=== PATIENT | female | born 1955 | race American Indian/Alaskan Native ===

== ENCOUNTER 2018-03-08 02:07 | Inpatient (IN) | payer MEDICAID ==
[2018-03-08] MEDS ORDERED: Aluminum Hydroxide/Magnesium Hydroxide Susp (30 mL) PO STA (03:12)
[2018-03-08] MEDS ORDERED: Sodium Chloride 0.9% 500 ML IV ONE ×2 (03:12→03:24)
--- NOTE | 2018-03-08 03:12 | C.PDOC ---
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 Last use heroin use to day. Denies diarrhea, constipation, or sick contact. <Altagracia Persaud - Last Filed: 03/08/18 06:40> <Alexander Goetz - Last Filed: 03/08/18 05:45> History Per: Patient History/Exam Limitations: no limitations Onset/Duration Of Symptoms: Days, Intermittent Episodes Current Symptoms Are (Timing): Still Present Location Of Pain/Discomfort: Epigastric Radiation Of Pain To:: None Quality Of Discomfort: Unable To Describe Associated Symptoms: Vomiting (x1), Other (Black tarry stools). denies: Diarrhea, Constipation Exacerbating Factors: None Alleviating Factors: None Recent travel outside of the [place]: No Abnormal Vaginal Bleeding: No <Altagracia Persaud - Last Filed: 03/08/18 06:40> Time Seen by Provider: 03/08/18 02:36 Chief Complaint (Nursing): Abdominal Pain Past Medical History Vital Signs: Last Vital Signs Temp 98.0 F 03/08/18 02:15 Pulse 58 L 03/08/18 05:01 Resp 16 03/08/18 05:01 BP 116/67 03/08/18 05:01 Pulse Ox 100 03/08/18 05:01 <Alexander Goetz - Last Filed: 03/08/18 05:45> Reviewed: Historical Data, Nursing Documentation, Vital Signs Vital Signs: Last Vital Signs Temp 98.0 F 03/08/18 02:15 Pulse 75 03/08/18 02:15 Resp 16 03/08/18 02:15 BP 141/87 03/08/18 02:15 Pulse Ox 100 03/08/18 02:15 - Medical History PMH: Fractures (left hip), Seizures Family History: States: Unknown Family Hx - Social History Hx Alcohol Use: No Hx Substance Use: Yes <Altagracia Persaud - Last Filed: 03/08/18 06:40> Review Of Systems Constitutional: Negative for: Fever, Chills Cardiovascular: Negative for: Chest Pain, Palpitations Respiratory: Negative for: Cough, Shortness of Breath Gastrointestinal: Positive for: Vomiting (x1), Abdominal Pain, Other (Black tarry stools). Negative for: Diarrhea, Constipation <Altagracia Persaud - Last Filed: 03/08/18 06:40> Physical Exam - Physical Exam Appears: Non-toxic Skin: Normal Color, Warm, Dry Head: Atraumatic, Normacephalic Eye(s): bilateral: Normal Inspection Oral Mucosa: Moist Neck: Normal, Supple Chest: Symmetrical, No Tenderness Cardiovascular: Rhythm Regular Respiratory: Normal Breath Sounds, No Rales, No Rhonchi, No Wheezing Gastrointestinal/Abdominal: Soft, Tenderness (Epigastric), No Guarding, No Rebound Rectal: Other (Black tarry stools) Back: No CVA Tenderness Neurological/Psych: Oriented x3, Normal Speech <Altagracia Persaud - Last Filed: 03/08/18 06:40> ED Course And Treatment - Laboratory Results Result Diagrams: 03/08/18 03:37 03/08/18 03:37 <Alexander Goetz - Last Filed: 03/08/18 05:45> - Laboratory Results Result Diagrams: 03/08/18 03:37 03/08/18 03:37 O2 Sat by Pulse Oximetry: 100 (Room air) Pulse Ox Interpretation: Normal Progress Note: Blood work, urinalysis, and CT abd/pel ordered. Maalox, pepcid, protonix, zofran, and IV fluids administered. After my evaluation dr Goetz assumed the care of this patient incl admission decision <Altagracia Persaud - Last Filed: 03/08/18 06:40> Disposition Discussed With : Rufino Garrison Comment: accepted the pt on his service and took over the care at 5:46AM Doctor Will See Patient In The: ED - POA Present On Arrival: None <Alexander Goetz - Last Filed: 03/08/18 05:45> Counseled Patient/Family Regarding: Diagnosis, Need For Followup - Disposition Disposition Time: 03:11 <Altagracia Persaud - Last Filed: 03/08/18 06:40> - Disposition Disposition: HOSPITALIZED Condition: FAIR - Clinical Impression Clinical Impression: Abdominal pain, GI bleed, Severe anemia - 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 - Scribe Statement The provider has reviewed the documentation as recorded by the Scribe Gokul Meza All medical record entries made by the Scribe were at my direction and personally dictated by me. I have reviewed the chart and agree that the record accurately reflects my personal performance of the history, physical exam, medical decision making, and the department course for this patient. I have also personally directed, reviewed, and agree with the discharge instructions and disposition. <Altagracia Persaud - Last Filed: 03/08/18 06:40> Decision To Admit - Pt Status Changed To: Hospital Disposition Of: Inpatient - Admit Certification Admit to Inpatient:: After my assessment, the patient will require hospitalization for at least two midnights. This is because of the severity of symptoms shown, intensity of services needed, and/or the medical risk in this patient being treated as an outpatient. - InPatient: Physician Admission Certification:: After my assessment, the patient will require hospitalization for at least two midnights. This is because of the severity of symptoms shown, intensity of services needed, and/or the medical risk in this patient being treated as an outpatient. - . Bed Request Type: Regular Admitting Physician: Rufino Garrison <Alexander Goetz - Last Filed: 03/08/18 05:45> <Altagracia Persaud - Last Filed: 03/08/18 06:40> - . Patient Diagnosis: Abdominal pain, GI bleed, Severe anemia
[2018-03-08] MEDS ORDERED: Aluminum Hydroxide/Magnesium Hydroxide Susp (30 mL) ONE (03:24)
[2018-03-08 03:58] LABS: BASO # 0.1 K/uL (0.0-0.2); BASO % 1.3 % (0.0-2.0); EOS # 0.1 K/uL (0.0-0.7); EOS % 1.8 % (0.0-4.0); LYMPH # 0.9 K/uL (1.0-4.3); LYMPH % 21.6 % (20.0-40.0); MEAN CELL VOLUME 110.1 fL (81.0-99.0); MEAN CORPUSCULAR HEMOGLOBIN 36.5 pg (27.0-31.0); MEAN CORPUSCULAR HGB CONC 33.1 g/dL (33.0-37.0); MEAN PLATELET VOLUME 8.3 fL (7.2-11.7); MONO # 0.3 K/uL (0.0-0.8); MONO % 6.8 % (0.0-10.0); NEUT # 2.7 K/uL (1.8-7.0); NEUT % 68.5 % (50.0-75.0); NRBC % 0.1 % (0.0-2.0); RBC 1.36 Mil/uL (3.80-5.20); RED CELL DISTRIBUTION WIDTH 15.6 % (11.5-14.5)
[2018-03-08 03:59] LABS: ALB/GLOB RATIO 1.5 (1.0-2.1); ALBUMIN 3.6 g/dL (3.5-5.0); CALCIUM 7.9 mg/dl (8.6-10.4)
[2018-03-08 04:00] LABS: HEMOGLOBIN 4.9 g/dL (11.0-16.0)
[2018-03-08] MEDS ORDERED: Sodium Chloride 0.9% 1,000 ML IV ONE (04:04)
[2018-03-08] MEDS ORDERED: Sodium Chloride 0.9% 1,000 ML ONE (04:13)
[2018-03-08] MEDS ORDERED: Iodixanol 320 MG/ML 100 ML BOTTLE IV ONE (04:37)
--- NOTE | 2018-03-08 08:48 | RAD ---
Chest x-ray single frontal view HISTORY: GI bleeding. COMPARISON: None available. FINDINGS: Bibasilar breast and nipple shadows. Mild patchy increased markings in the right midlung zone. Nodular density projecting over the left lower lung zone inferior to the left nipple which may represent confluence of shadows with ribs and vessels. Small nodule cannot be excluded. Interval follow-up x-ray may be helpful if clinically indicated. Alternatively, correlation with chest CT may be helpful. Tortuous ectatic aorta. Top normal heart size. Biapical pleural. Degenerative changes in the spine. Impression: Mild patchy increased markings in the right midlung zone. Nodular density projecting over the left lower lung zone inferior to the left nipple which may represent confluence of shadows with ribs and vessels. Small nodule cannot be excluded. Interval follow-up x-ray may be helpful if clinically indicated. Alternatively, correlation with chest CT may be helpful.
--- NOTE | 2018-03-08 08:55 | CP.PCM.HP ---
<Laurel Treadwell V - Last Filed: 03/08/18 10:00> Meds Allergies/Adverse Reactions: Allergies Allergy/AdvReac Type Severity Reaction Status Date / Time No Known Allergies Allergy Verified 03/08/18 02:18 Results - Vital Signs Recent Vital Signs: Last Vital Signs Temp 97.7 F 03/08/18 08:40 Pulse 61 03/08/18 08:40 Resp 20 03/08/18 08:40 BP 131/87 03/08/18 08:40 Pulse Ox 100 03/08/18 08:40 - Labs Result Diagrams: 03/08/18 03:37 03/08/18 03:37 Labs: Laboratory Results - last 24 hr 03/08/18 03/08/18 03/08/18 03:37 03:37 04:19 WBC 4.0 L RBC 1.36 L Hgb 4.9 L* Hct 15.0 L MCV 110.1 H MCH 36.5 H MCHC 33.1 RDW 15.6 H Plt Count 230 MPV 8.3 Neut % (Auto) 68.5 Lymph % (Auto) 21.6 Foard % (Auto) 6.8 Eos % (Auto) 1.8 Baso % (Auto) 1.3 Neut # (Auto) 2.7 Lymph # (Auto) 0.9 L Foard # (Auto) 0.3 Eos # (Auto) 0.1 Baso # (Auto) 0.1 Retic Count Sodium 134 Potassium 4.0 Chloride 101 Carbon Dioxide 23 Anion Gap 14 BUN 26 H Creatinine 1.3 H Est GFR ( Amer) 50 Est GFR (Non-Af Amer) 42 Random Glucose 83 Calcium 7.9 L Total Bilirubin 0.4 AST 236 H ALT 95 H Alkaline Phosphatase 57 Total Protein 6.1 L Albumin 3.6 Globulin 2.5 Albumin/Globulin Ratio 1.5 Lipase 119 Urine Color Urine Clarity Urine pH Ur Specific Minto Urine Protein Urine Glucose (UA) Urine Ketones Urine Blood Urine Nitrate Urine Bilirubin Urine Urobilinogen Ur Leukocyte Esterase Urine WBC (Auto) Urine RBC (Auto) Ur Squamous Epith Cells Stool Occult Blood Positive H Urine Opiates Screen Urine Methadone Screen Ur Barbiturates Screen Ur Phencyclidine Scrn Ur Amphetamines Screen U Benzodiazepines Scrn U Oth Cocaine Metabols U Cannabinoids Screen Blood Type Antibody Screen 03/08/18 03/08/18 03/08/18 04:31 08:56 08:56 WBC RBC Hgb Hct MCV MCH MCHC RDW Plt Count MPV Neut % (Auto) Lymph % (Auto) Foard % (Auto) Eos % (Auto) Baso % (Auto) Neut # (Auto) Lymph # (Auto) Foard # (Auto) Eos # (Auto) Baso # (Auto) Retic Count Sodium Potassium Chloride Carbon Dioxide Anion Gap BUN Creatinine Est GFR ( Amer) Est GFR (Non-Af Amer) Random Glucose Calcium Total Bilirubin AST ALT Alkaline Phosphatase Total Protein Albumin Globulin Albumin/Globulin Ratio Lipase Urine Color Straw Urine Clarity Clear Urine pH 6.0 Ur Specific Minto 1.028 Urine Protein Negative Urine Glucose (UA) Normal Urine Ketones Negative Urine Blood 3+ H Urine Nitrate Negative Urine Bilirubin Negative Urine Urobilinogen Normal Ur Leukocyte Esterase Neg Urine WBC (Auto) < 1 Urine RBC (Auto) 1 Ur Squamous Epith Cells < 1 Stool Occult Blood Urine Opiates Screen Positive H Urine Methadone Screen Positive H Ur Barbiturates Screen Negative Ur Phencyclidine Scrn Negative Ur Amphetamines Screen Negative U Benzodiazepines Scrn Negative U Oth Cocaine Metabols Negative U Cannabinoids Screen Negative Blood Type O POSITIVE Antibody Screen Negative 03/08/18 09:42 WBC RBC Hgb Hct MCV MCH MCHC RDW Plt Count MPV Neut % (Auto) Lymph % (Auto) Foard % (Auto) Eos % (Auto) Baso % (Auto) Neut # (Auto) Lymph # (Auto) Foard # (Auto) Eos # (Auto) Baso # (Auto) Retic Count 3.3 H Sodium Potassium Chloride Carbon Dioxide Anion Gap BUN Creatinine Est GFR ( Amer) Est GFR (Non-Af Amer) Random Glucose Calcium Total Bilirubin AST ALT Alkaline Phosphatase Total Protein Albumin Globulin Albumin/Globulin Ratio Lipase Urine Color Urine Clarity Urine pH Ur Specific Minto Urine Protein Urine Glucose (UA) Urine Ketones Urine Blood Urine Nitrate Urine Bilirubin Urine Urobilinogen Ur Leukocyte Esterase Urine WBC (Auto) Urine RBC (Auto) Ur Squamous Epith Cells Stool Occult Blood Urine Opiates Screen Urine Methadone Screen Ur Barbiturates Screen Ur Phencyclidine Scrn Ur Amphetamines Screen U Benzodiazepines Scrn U Oth Cocaine Metabols U Cannabinoids Screen Blood Type Antibody Screen Attending/Attestation - Attestation I have personally seen and examined this patient.: Yes I have fully participated in the care of the patient.: Yes I have reviewed all pertinent clinical information: Yes Notes (Text): Patient seen, examined, case discussed with medical claims analyst. Patient is a 63-year-old female history of lung cancer appears on chemoradiation as well as hypothyroidism, heroin use comes in following one month for epigastric pain wherein she is been using [place], [id number] when necessary pain meds as well as 2 tablets of Advil to control the pain. Patient reports it is right in the epigastric area and does not radiate. Patient reports improves with food. Patient reports that she started seeing black tarry stools as of 2 weeks ago but was not worried. Patient denies use of iron supplementation. Patient reports abdominal pain was so bad this morning which prompted her to call the ambulance and come to [facility]. Patient notes that she usually goes to [facility], and is unclear if she's had anemia before not. She does report she is needed blood transfusion in the past. Patient reports that she uses heroin about 1-2 bundles of [place] last used yesterday. Patient reports she is also an active smoker in spite of her lung cancer diagnosis she reports she doesn't because it keeps her calm I did advise her t hat does not help improve her status from her lung cancer. Which she agrees. In the ED patient has received both Pepcid and Protonix. Patient's currently on her first unit of PRBC. It is unknown what her baseline hemoglobin is since we do not have [facility] records available to us resident has attempted to get medical records released from [facility] summary the bases. Awaiting official reports of both chest x-ray and CT abdomen and pelvis. Noted there is no free air noted on the chest x-ray awaiting for official read. Patient is ordered for baseline EKG. GI consult today. Hematology oncology consulted. As well as psychiatry consulted. Discussed admitting orders with resident at time of admission. Admitting diagnoses: Symptomatic anemia typing cross 3 units PRBC receiving first unit bedside. Pos itive stool occult blood in light of both epigastric and black tarry stool we'll consult GI to determine if will need a EGD. Unknown baseline hemoglobin we'll attempt to get medical records from [facility]. A consult heme on can light of lung cancer history as well. No NSAIDs quite anticoagulation in light of symptomatic anemia and positive stool occult blood History of lung malignancy patient denies metastases reports on chemoradiation labs use 1 month ago. Patient is a persistent smoker has been advised to stop smoking to preserve lung function especially in light of lung cancer. Seizure disorder patient reports inconsistent use of Dilantin. Dilantin level ordered. Ativan when necessary for seizure activity Hypothyroidism we'll check TSH free T4 in the morning we'll hold by mouth meds at this time given GI bleed Tobacco use advise cessation at bedside especially in light of lung cancer heroin abuse. Consult psych in light of potential withdrawal. patient reports she uses methadone off the street. does not want this discuss with her daughter. Patient reports that she is full code. She does disclose to relieve we'll only the GI bleeding, the lung cancer and seizure history to her daughter but reports please do not discuss heroin use from the daughter she does not know. Patient upgrade to telemetry in light of GI bleed. She should precautions,. Aspiration precautions chemical anticoagulation contraindicated given GI bleed. <Donny Gimenez - Last Filed: 03/08/18 18:05> History of Present Illness - History of Present Illness History of Present Illness: H&P for Hospitalist Dr. Treadwell 63 F w/ PMHx of Lung ca (stage 2, receiving chemo & radiation @ [facility] w/ Dr. Alex De Souza), seizures (Dilantin 100 TID), ? hypothyroidism, presents to ED w/ 1 month of worsening abdominal pain. Patient states constant abdominal pain w/ black tarry watery stools for the past week, with pain alleviated with food. Patient has tried tylenol OTC and intermittent iboprofen use with no relief of pain. 3 episode of non bloody, non bilious vomiting yesterday 03/07. Patient also admits to falls for the past month because her legs feel heavy along with numbness and tingling sensation. Patient denies LOC, head trauma and is able to get up immediately after fall. Patient denies chest pain, SOB, headaches, vision changes, dysuria, hematuria. Patient has irregular use of Dilantin & ~30 lb phyllis ght loss over the past several months. Patient primarily receives treatment at [facility]. Medical release authorization has bee obtained by patient. Awaiting results. PMD: None, Heme/Onc Dr. Alex De Souza @ [facility] PMHx: Lung ca (stage 2, receiving chemo & radiation @ [facility] w/ Dr. Alex De Souza), seizures (Dilantin 100 TID), ? hypothyroidism Meds: Dilantin 100 mg TID, unsure of thyroid medication, uses [facility] pharmacy Allergies: NKDA PSHx: unknown abdominal surgery involving stomach/colon FHx: Dad - HTN, mother - unknown SHX: 2 cigerattes/day 20+ years, heroin 6-8 bags/ day (intranasal) Full Code Emergency contact daughter Dariela: [phone]; may discuss medial status with daughter except heroin use Present on Admission - Present on Admission Any Indicators Present on Admission: No Review of Systems - Constitutional Constitutional: absent: Chills, Fever, Night Sweats - EENT Eyes: absent: Diplopia, Loss of Vision Ears: absent: Decreased Hearing, Ear Discharge - Cardiovascular Cardiovascular: absent: Chest Pain, Chest Pain at Rest - Respiratory Respiratory: absent: Cough, Dyspnea - Gastrointestinal Gastrointestinal: Abdominal Pain, Loose Stools, Vomiting. absent: Constipation, Early Satiety, Hematemesis - Genitourinary Genitourinary: absent: Difficulty Urinating, Hematuria - Musculoskeletal Musculoskeletal: absent: Arthralgias, Back Pain, Muscle Weakness - Neurological Neurological: absent: Abnormal Hearing, Behavioral Changes, Headaches - Psychiatric Psychiatric: absent: Hallucinations, Mood Swings Past Patient History - Past Social History Smoking Status: Heavy Smoker > 10 Cigarettes Daily - NEUROLOGICAL Hx Seizures: Yes - HEMATOLOGICAL/ONCOLOGICAL Hx Blood Disorders: Yes Hx Cancer: Yes (left lung) - MUSCULOSKELETAL/RHEUMATOLOGICAL Hx Fractures: Yes (left hip) - PSYCHIATRIC Hx Substance Use: Yes - SURGICAL HISTORY Hx Surgeries: Yes Hx Orthopedic Surgery: Yes (left breast) Physical Exam - Constitutional Appears: Non-toxic, No Acute Distress, Cachectic - Head Exam Head Exam: ATRAUMATIC, NORMAL INSPECTION, NORMOCEPHALIC - Eye Exam Eye Exam: EOMI, Normal appearance, PERRL Pupil Exam: NORMAL ACCOMODATION - ENT Exam ENT Exam: Mucous Membranes Moist - Respiratory Exam Respiratory Exam: Clear to Auscultation Bilateral, NORMAL BREATHING PATTERN. absent: Rales, Rhonchi, Wheezes - Cardiovascular Exam Cardiovascular Exam: +S1, +S2. absent: Systolic Murmur - GI/Abdominal Exam GI & Abdominal Exam: Normal Bowel Sounds, Tenderness Additional comments: Diffuse tenderness on palpation - Rectal Exam Additional comments: No masses appreciated, no gross blood, no hemorrhoids visible - Extremities Exam Extremities exam: Negative for: calf tenderness, pedal edema Additional comments: Multiple healing abrasion on arms/ wrists - Back Exam Back exam: absent: CVA tenderness (L), CVA tenderness (R) - Neurological Exam Neurological exam: CN II-XII Intact, Oriented x3 - Psychiatric Exam Psychiatric exam: Normal Affect, Normal Mood - Skin Skin Exam: Dry, Intact, Normal Color, Warm Results - Vital Signs Recent Vital Signs: Last Vital Signs Temp 98 F 03/08/18 07:23 Pulse 68 03/08/18 07:23 Resp 20 03/08/18 07:23 BP 103/65 03/08/18 07:23 Pulse Ox 100 03/08/18 07:23 - Labs Result Diagrams: 03/08/18 03:37 03/08/18 03:37 Labs: Laboratory Results - last 24 hr 03/08/18 03/08/18 03/08/18 03:37 03:37 04:19 WBC 4.0 L RBC 1.36 L Hgb 4.9 L* Hct 15.0 L MCV 110.1 H MCH 36.5 H MCHC 33.1 RDW 15.6 H Plt Count 230 MPV 8.3 Neut % (Auto) 68.5 Lymph % (Auto) 21.6 Foard % (Auto) 6.8 Eos % (Auto) 1.8 Baso % (Auto) 1.3 Neut # (Auto) 2.7 Lymph # (Auto) 0.9 L Foard # (Auto) 0.3 Eos # (Auto) 0.1 Baso # (Auto) 0.1 Sodium 134 Potassium 4.0 Chloride 101 Carbon Dioxide 23 Anion Gap 14 BUN 26 H Creatinine 1.3 H Est GFR ( Amer) 50 Est GFR (Non-Af Amer) 42 Random Glucose 83 Calcium 7.9 L Total Bilirubin 0.4 AST 236 H ALT 95 H Alkaline Phosphatase 57 Total Protein 6.1 L Albumin 3.6 Globulin 2.5 Albumin/Globulin Ratio 1.5 Lipase 119 Stool Occult Blood Positive H Blood Type Antibody Screen 03/08/18 04:31 WBC RBC Hgb Hct MCV MCH MCHC RDW Plt Count MPV Neut % (Auto) Lymph % (Auto) Foard % (Auto) Eos % (Auto) Baso % (Auto) Neut # (Auto) Lymph # (Auto) Foard # (Auto) Eos # (Auto) Baso # (Auto) Sodium Potassium Chloride Carbon Dioxide Anion Gap BUN Creatinine Est GFR ( Amer) Est GFR (Non-Af Amer) Random Glucose Calcium Total Bilirubin AST ALT Alkaline Phosphatase Total Protein Albumin Globulin Albumin/Globulin Ratio Lipase Stool Occult Blood Blood Type O POSITIVE Antibody Screen Negative Assessment & Plan - Assessment and Plan (Free Text) Assessment: 63 F w/ PMHx of Lung ca (stage 2, receiving chemo & radiation @ [facility] w/ Dr. Alex De Souza), seizures (Dilantin 100 TID), ? hypothyroidism, presents to ED w/ 1 month of worsening abdominal pain; found in ED to have Hgb of 4.9. Acute anemia - on admission Hgb 4.9, fecal occult positive, epigastric & black tarry stools - 3 units PRBCs - F/u GI, Dr. Bello recs - EGD report: one non bleeding cratered duodenal ulcer w/ clean base found in 1st portion of duodenum, lession 13 mm in largest - diffuse mild inflammation w/ erythema in gastric body w/ biopsy taken - 1 cm hiatal hernia - F/u heme/onc, Dr. Parikh recs - F/u iron studies (ferritin, TIBC, iron, iron saturation) - F/u reticulocyte count - reticulocyte index - F/u B12, folate - F/u LDH, hatoglobin - Retrieve records from [facility] Malignancy Lung cancer - sees heme/onc - Dr. Alex De Souza @ [facility] - pt on chem/radition, last dose 1 month prior workup at [facility] Heroin Abuse - F/u Psych, Dr. Ortega, recs - aspiration precautions seizure precautions Hypothyroidism - monitor outpatient - F/u TSH & Free T4 Tobacco use - nicoderm - cessation Alcohol Abuse - aspiration &s seizure precaution - Ativan 1mg Q6h PRN Prophylatic measure - DVT contraindicated due to GI bleed - GI: Protonix 40 mg PO daily
[2018-03-08] MEDS ORDERED: Pantoprazole 80 MG in Sodium Chloride 0.9% 100 ML IVP SCH (09:00)
[2018-03-08] MEDS ORDERED: Octreotide 1,250 MCG in Dextrose 5% In Water 250 ML SC SCH (09:00)
[2018-03-08 09:02] LABS: SQUAMOUS EPITHIAL < 1 /hpf (0-5); URINE BILIRUBIN NEGATIVE (NEGATIVE); URINE BLOOD 3+ (NEGATIVE); URINE CLARITY Clear (Clear); URINE COLOR Straw (YELLOW); URINE GLUCOSE (UA) NORMAL (Normal); URINE LEUKOCYTE ESTERASE NEG Leu/uL (Negative); URINE PROTEIN NEGATIVE (NEGATIVE); URINE UROBILINOGEN NORMAL mg/dL (0.2-1.0)
--- NOTE | 2018-03-08 09:09 | CP.PCM.CON ---
<EmmettSteve - Last Filed: 03/08/18 13:04> History of Present Illness - History of Present Illness History of Present Illness: GI Fellow PGY4, Consult note. Connie Angelo is a 63F with history of polysubstance abuse and lung cancer on chemo presenting with abdominal pain and dark stool. Patient has notice black stool for the last week. She has had moderate epigastric abdominal pain for the 1 month and has been taking ~6 NSAID tablets per day. She has not been taking PPI. She has also been consuming alcohol and is a long time smoker and heroin user. She denies vomiting blood or syncope. She has never had a GI bleed before this. She has had an EGD in the distant past but for unknown reason/results. Never has had colonoscopy. Diagnosed with lung cancer last year and has been receiving chemotherapy (last dose 1 month ago). PMHx - as above plus she takes dilantin for remote hx of seizures. PSHx - Abdominal surgery of unclear etiology, likely bowel problem but patient cannot expand. FMHx - Denies GI related cancers SocHx - Uses alcohol (last drink 3 days ago). Current smoker. Heroin use. Denies cocaine. 12pt ROS completed and negative except for above. Past Patient History - Past Social History Smoking Status: Heavy Smoker > 10 Cigarettes Daily - NEUROLOGICAL Hx Seizures: Yes - HEMATOLOGICAL/ONCOLOGICAL Hx Blood Disorders: Yes Hx Cancer: Yes (left lung) - MUSCULOSKELETAL/RHEUMATOLOGICAL Hx Fractures: Yes (left hip) - PSYCHIATRIC Hx Substance Use: Yes - SURGICAL HISTORY Hx Surgeries: Yes Hx Orthopedic Surgery: Yes (left breast) Meds Allergies/Adverse Reactions: Allergies Allergy/AdvReac Type Severity Reaction Status Date / Time No Known Allergies Allergy Verified 03/08/18 02:18 - Medications Medications: Current Medications Octreotide Acetate 1,250 mcg/ (Dextrose) 252.5 mls @ 5.05 mls/hr SC .Q24H DANILO; Protocol Pantoprazole Sodium 80 mg/ (Sodium Chloride) 100 mls @ 10 mls/hr IVPB .Q10H DANILO Lorazepam (Ativan) 1 mg IVP Q6H PRN PRN Reason: Seizure activity Physical Exam - Constitutional Appears: Non-toxic, No Acute Distress, Cachectic, Chronically Ill - Head Exam Head Exam: NORMAL INSPECTION, NORMOCEPHALIC - Eye Exam Eye Exam: EOMI, Normal appearance - ENT Exam ENT Exam: Mucous Membranes Moist, Normal Exam - Respiratory Exam Respiratory Exam: Clear to Auscultation Bilateral, NORMAL BREATHING PATTERN - Cardiovascular Exam Cardiovascular Exam: REGULAR RHYTHM, +S1, +S2 - GI/Abdominal Exam GI & Abdominal Exam: Normal Bowel Sounds, Organomegaly, Soft, Tenderness. absent: Distended, Guarding - Rectal Exam Rectal Exam: Black Stool - Extremities Exam Extremities exam: Positive for: full ROM, normal inspection - Neurological Exam Neurological exam: Alert, CN II-XII Intact, Oriented x3 - Psychiatric Exam Psychiatric exam: Depressed, Flat Affect - Skin Skin Exam: Dry, Normal Color Results - Vital Signs Recent Vital Signs: Last Vital Signs Temp 97.7 F 03/08/18 08:40 Pulse 83 03/08/18 08:40 Resp 20 03/08/18 08:40 BP 131/87 03/08/18 08:40 Pulse Ox 100 03/08/18 08:40 - Labs Result Diagrams: 03/08/18 03:37 03/08/18 03:37 Labs: Laboratory Results - last 24 hr 03/08/18 03/08/18 03/08/18 03:37 03:37 04:19 WBC 4.0 L RBC 1.36 L Hgb 4.9 L* Hct 15.0 L MCV 110.1 H MCH 36.5 H MCHC 33.1 RDW 15.6 H Plt Count 230 MPV 8.3 Neut % (Auto) 68.5 Lymph % (Auto) 21.6 [place] % (Auto) 6.8 Eos % (Auto) 1.8 Baso % (Auto) 1.3 Neut # (Auto) 2.7 Lymph # (Auto) 0.9 L [place] # (Auto) 0.3 Eos # (Auto) 0.1 Baso # (Auto) 0.1 Sodium 134 Potassium 4.0 Chloride 101 Carbon Dioxide 23 Anion Gap 14 BUN 26 H Creatinine 1.3 H Est GFR ( Amer) 50 Est GFR (Non-Af Amer) 42 Random Glucose 83 Calcium 7.9 L Total Bilirubin 0.4 AST 236 H ALT 95 H Alkaline Phosphatase 57 Total Protein 6.1 L Albumin 3.6 Globulin 2.5 Albumin/Globulin Ratio 1.5 Lipase 119 Stool Occult Blood Positive H Blood Type Antibody Screen 03/08/18 04:31 WBC RBC Hgb Hct MCV MCH MCHC RDW Plt Count MPV Neut % (Auto) Lymph % (Auto) [place] % (Auto) Eos % (Auto) Baso % (Auto) Neut # (Auto) Lymph # (Auto) [place] # (Auto) Eos # (Auto) Baso # (Auto) Sodium Potassium Chloride Carbon Dioxide Anion Gap BUN Creatinine Est GFR ( Amer) Est GFR (Non-Af Amer) Random Glucose Calcium Total Bilirubin AST ALT Alkaline Phosphatase Total Protein Albumin Globulin Albumin/Globulin Ratio Lipase Stool Occult Blood Blood Type O POSITIVE Antibody Screen Negative Assessment & Plan - Assessment and Plan (Free Text) Assessment: #Acute blood loss anemia due to likely upper GI bleed #Acute abdominal pain with NSAID abuse - Likely PUD, no signs of perforation #Elevated liver enzymes #Likely alcoholic liver disease #Lung cancer on chemo #Polysubstance abuse PLAN: -Resuscitate patient and plan for EGD -Recommend 2u pRBCs STAT prior to EGD with another unit on HOLD -Monitor Hb closely, recheck this evening and tomorrow AM. -Check hepatitis panel -Check coagulation studies -Start octreotide bolus and drip in setting of alcoholic liver disease -Start PPI drip -Recommend CIWA protocol -Avoid NSAIDs/anticoagulation Note: Please see follow up EGD report for further recommendations. - Date & Time Date: 03/08/18 Time: 09:10 <Delbert Carrillo - Last Filed: 03/08/18 16:01> Meds - Medications Medications: Current Medications Lorazepam (Ativan) 1 mg IVP Q6H PRN PRN Reason: Seizure activity Last Admin: 03/08/18 11:16 Dose: 1 mg Ondansetron HCl (Zofran Inj) 4 mg IVP Q6H PRN PRN Reason: Nausea/Vomiting Pantoprazole Sodium (Protonix Ec Tab) 40 mg PO DAILY DANILO Last Admin: 03/08/18 14:24 Dose: 40 mg Sucralfate (Carafate Oral Susp) 1 gm PO Q6H DANILO Last Admin: 03/08/18 14:23 Dose: 1 gm Results - Vital Signs Recent Vital Signs: Last Vital Signs Temp 97 F L 03/08/18 12:43 Pulse 58 L 03/08/18 15:35 Resp 12 03/08/18 15:35 BP 132/86 03/08/18 15:35 Pulse Ox 100 03/08/18 15:35 - Labs Result Diagrams: 03/08/18 03:37 03/08/18 03:37 Labs: Laboratory Results - last 24 hr 03/08/18 03/08/18 03/08/18 03:37 03:37 04:19 WBC 4.0 L RBC 1.36 L Hgb 4.9 L* Hct 15.0 L MCV 110.1 H MCH 36.5 H MCHC 33.1 RDW 15.6 H Plt Count 230 MPV 8.3 Neut % (Auto) 68.5 Lymph % (Auto) 21.6 [place] % (Auto) 6.8 Eos % (Auto) 1.8 Baso % (Auto) 1.3 Neut # (Auto) 2.7 Lymph # (Auto) 0.9 L [place] # (Auto) 0.3 Eos # (Auto) 0.1 Baso # (Auto) 0.1 Retic Count PT INR APTT Sodium 134 Potassium 4.0 Chloride 101 Carbon Dioxide 23 Anion Gap 14 BUN 26 H Creatinine 1.3 H Est GFR ( Amer) 50 Est GFR (Non-Af Amer) 42 Random Glucose 83 Calcium 7.9 L Iron TIBC % Saturation Transferrin Ferritin Total Bilirubin 0.4 AST 236 H ALT 95 H Alkaline Phosphatase 57 Total Protein 6.1 L Albumin 3.6 Globulin 2.5 Albumin/Globulin Ratio 1.5 Lipase 119 Vitamin B12 Folate Urine Color Urine Clarity Urine pH Ur Specific [place] Urine Protein Urine Glucose (UA) Urine Ketones Urine Blood Urine Nitrate Urine Bilirubin Urine Urobilinogen Ur Leukocyte Esterase Urine WBC (Auto) Urine RBC (Auto) Ur Squamous Epith Cells Stool Occult Blood Positive H Urine Opiates Screen Urine Methadone Screen Ur Barbiturates Screen Phenytoin Ur Phencyclidine Scrn Ur Amphetamines Screen U Benzodiazepines Scrn U Oth Cocaine Metabols U Cannabinoids Screen Alcohol, Quantitative Blood Type Antibody Screen 03/08/18 03/08/18 03/08/18 04:31 08:56 08:56 WBC RBC Hgb Hct MCV MCH MCHC RDW Plt Count MPV Neut % (Auto) Lymph % (Auto) [place] % (Auto) Eos % (Auto) Baso % (Auto) Neut # (Auto) Lymph # (Auto) [place] # (Auto) Eos # (Auto) Baso # (Auto) Retic Count PT INR APTT Sodium Potassium Chloride Carbon Dioxide Anion Gap BUN Creatinine Est GFR ( Amer) Est GFR (Non-Af Amer) Random Glucose Calcium Iron TIBC % Saturation Transferrin Ferritin Total Bilirubin AST ALT Alkaline Phosphatase Total Protein Albumin Globulin Albumin/Globulin Ratio Lipase Vitamin B12 Folate Urine Color Straw Urine Clarity Clear Urine pH 6.0 Ur Specific [place] 1.028 Urine Protein Negative Urine Glucose (UA) Normal Urine Ketones Negative Urine Blood 3+ H Urine Nitrate Negative Urine Bilirubin Negative Urine Urobilinogen Normal Ur Leukocyte Esterase Neg Urine WBC (Auto) < 1 Urine RBC (Auto) 1 Ur Squamous Epith Cells < 1 Stool Occult Blood Urine Opiates Screen Positive H Urine Methadone Screen Positive H Ur Barbiturates Screen Negative Phenytoin Ur Phencyclidine Scrn Negative Ur Amphetamines Screen Negative U Benzodiazepines Scrn Negative U Oth Cocaine Metabols Negative U Cannabinoids Screen Negative Alcohol, Quantitative Blood Type O POSITIVE Antibody Screen Negative 03/08/18 03/08/18 03/08/18 09:42 09:42 09:42 WBC RBC Hgb Hct MCV MCH MCHC RDW Plt Count MPV Neut % (Auto) Lymph % (Auto) [place] % (Auto) Eos % (Auto) Baso % (Auto) Neut # (Auto) Lymph # (Auto) [place] # (Auto) Eos # (Auto) Baso # (Auto) Retic Count 3.3 H PT INR APTT Sodium Potassium Chloride Carbon Dioxide Anion Gap BUN Creatinine Est GFR ( Amer) Est GFR (Non-Af Amer) Random Glucose Calcium Iron 102 TIBC 216 L % Saturation 47 Transferrin Ferritin 987.0 Total Bilirubin AST ALT Alkaline Phosphatase Total Protein Albumin Globulin Albumin/Globulin Ratio Lipase Vitamin B12 531 Folate 8.2 Urine Color Urine Clarity Urine pH Ur Specific [place] Urine Protein Urine Glucose (UA) Urine Ketones Urine Blood Urine Nitrate Urine Bilirubin Urine Urobilinogen Ur Leukocyte Esterase Urine WBC (Auto) Urine RBC (Auto) Ur Squamous Epith Cells Stool Occult Blood Urine Opiates Screen Urine Methadone Screen Ur Barbiturates Screen Phenytoin Ur Phencyclidine Scrn Ur Amphetamines Screen U Benzodiazepines Scrn U Oth Cocaine Metabols U Cannabinoids Screen Alcohol, Quantitative < 10 Blood Type Antibody Screen 03/08/18 03/08/18 03/08/18 09:42 09:42 09:42 WBC RBC Hgb Hct MCV MCH MCHC RDW Plt Count MPV Neut % (Auto) Lymph % (Auto) [place] % (Auto) Eos % (Auto) Baso % (Auto) Neut # (Auto) Lymph # (Auto) [place] # (Auto) Eos # (Auto) Baso # (Auto) Retic Count PT INR APTT Sodium Potassium Chloride Carbon Dioxide Anion Gap BUN Creatinine Est GFR ( Amer) Est GFR (Non-Af Amer) Random Glucose Calcium Iron TIBC % Saturation 47 Transferrin 163.17 L Ferritin Total Bilirubin AST ALT Alkaline Phosphatase Total Protein Albumin Globulin Albumin/Globulin Ratio Lipase Vitamin B12 Folate Urine Color Urine Clarity Urine pH Ur Specific [place] Urine Protein Urine Glucose (UA) Urine Ketones Urine Blood Urine Nitrate Urine Bilirubin Urine Urobilinogen Ur Leukocyte Esterase Urine WBC (Auto) Urine RBC (Auto) Ur Squamous Epith Cells Stool Occult Blood Urine Opiates Screen Urine Methadone Screen Ur Barbiturates Screen Phenytoin < 3.0 L Ur Phencyclidine Scrn Ur Amphetamines Screen U Benzodiazepines Scrn U Oth Cocaine Metabols U Cannabinoids Screen Alcohol, Quantitative Blood Type Antibody Screen 03/08/18 09:42 WBC RBC Hgb Hct MCV MCH MCHC RDW Plt Count MPV Neut % (Auto) Lymph % (Auto) [place] % (Auto) Eos % (Auto) Baso % (Auto) Neut # (Auto) Lymph # (Auto) [place] # (Auto) Eos # (Auto) Baso # (Auto) Retic Count PT 10.6 INR 1.0 APTT 31 Sodium Potassium Chloride Carbon Dioxide Anion Gap BUN Creatinine Est GFR ( Amer) Est GFR (Non-Af Amer) Random Glucose Calcium Iron TIBC % Saturation Transferrin Ferritin Total Bilirubin AST ALT Alkaline Phosphatase Total Protein Albumin Globulin Albumin/Globulin Ratio Lipase Vitamin B12 Folate Urine Color Urine Clarity Urine pH Ur Specific [place] Urine Protein Urine Glucose (UA) Urine Ketones Urine Blood Urine Nitrate Urine Bilirubin Urine Urobilinogen Ur Leukocyte Esterase Urine WBC (Auto) Urine RBC (Auto) Ur Squamous Epith Cells Stool Occult Blood Urine Opiates Screen Urine Methadone Screen Ur Barbiturates Screen Phenytoin Ur Phencyclidine Scrn Ur Amphetamines Screen U Benzodiazepines Scrn U Oth Cocaine Metabols U Cannabinoids Screen Alcohol, Quantitative Blood Type Antibody Screen Attending/Attestation - Attestation I have personally seen and examined this patient.: Yes I have fully participated in the care of the patient.: Yes I have reviewed all pertinent clinical information: Yes Notes (Text): 03/08/18 15:57 I have seen and examined patient with GI fellow. Agree with above documentation with the following additions. In brief, this is a 63 year old female with history of polysubstance abuse, ETOH abuse, lung cancer on chemotherapy who presents to hospital with complaint of abdominal pain and dark colored stool for the past one week. She reports sharp epigastric pain which radiates to back during this time period. She admits to use of daily NSAIDs for pain relief. She otherwise denies nausea, vomiting, fever/chills, weight loss, or change in bowel habits. She claims to have had an EGD several years ago, no prior colonoscopy. Polysubstance abuse ETOH abuse, transaminitis Lung cancer on chemotherapy Abdominal pain Anemia, melena - NPO - Patient currently receiving PRBC transfusion, continue to monitor H/H - Continue with PPI therapy - Obtain viral hepatitis panel, continue to monitor LFTs - Monitor for signs of ETOH withdrawal - Given profound anemia with melena, will plan for urgent EGD today for further evaluation
[2018-03-08] MEDS ORDERED: Octreotide 1,250 MCG in Dextrose 5% In Water 250 ML IV SCH (09:15)
[2018-03-08] MEDS ORDERED: Pantoprazole 80 MG in Sodium Chloride 0.9% 100 ML IVPB SCH (09:15)
[2018-03-08 09:18] LABS: BARBITURATES, UR NEGATIVE (NEGATIVE); BENZODIAZEPINES, UR NEGATIVE (NEGATIVE); PHENCYCLIDINE, UR NEGATIVE (NEGATIVE)
[2018-03-08 09:27] LABS: OPIATES, UR POSITIVE (NEGATIVE)
[2018-03-08 10:04] LABS: IRON 102 ug/dL (37-170)
[2018-03-08 10:10] LABS: % IRON SATURATION 47 (20-55); TOTAL IRON BINDING CAPACITY 216 ug/dL (250-450)
[2018-03-08 11:17] LABS: FOLATE 8.2 ng/mL
[2018-03-08 11:24] LABS: PROTHROMBIN TIME 10.6 SECONDS (9.7-12.2)
--- NOTE | 2018-03-08 11:38 | CT ---
Date of service: 03/08/2018 PROCEDURE: CT Abdomen and Pelvis with contrast HISTORY: gi bleed COMPARISON: None available TECHNIQUE: Contrast dose: 150 mL Visipaque 320 Radiation dose: Total exam DLP = 173.56 mGy-cm. This CT exam was performed using one or more of the following dose reduction techniques: Automated exposure control, adjustment of the mA and/or kV according to patient size, and/or use of iterative reconstruction technique. FINDINGS: LOWER THORAX: No visible consolidation, pleural effusion, or pneumothorax. LIVER: Too small to characterize 5 mm hepatic dome hypodensity; statistically likely cyst or hemangioma. Hypoattenuation of the liver compatible with hepatic steatosis. Hepatomegaly. GALLBLADDER AND BILE DUCTS: Unremarkable. PANCREAS: Pancreatic duct appears dilated measuring approximately 4 mm. 9 mm cystic appearing focus at the pancreatic head with evidence of communication with the pancreatic duct consistent with IPMN. SPLEEN: Unremarkable. ADRENALS: Unremarkable. KIDNEYS AND URETERS: The kidneys enhance symmetrically. No hydronephrosis or obstructing calculus identified. VASCULATURE: No aortic aneurysm. Atherosclerotic calcifications present. BOWEL: Thickening of the gastric antrum. Lack of oral contrast limits evaluation for bowel pathology. No evidence of bowel obstruction. Postsurgical changes at the cecum. Fluid-filled bowel loops suggest diarrheal illness. APPENDIX: The appendix is not identified. Correlate for appendectomy. PERITONEUM: Small abdominal and pelvic ascites. Mesenteric edema. No definite free air. LYMPH NODES: No bulky adenopathy identified. BLADDER: Unremarkable. REPRODUCTIVE: Unremarkable. BONES: Indeterminate right sacral 4 mm sclerotic focus, possibly bone island. Degenerative changes of the spine. OTHER FINDINGS: None. IMPRESSION: 9 mm cystic appearing focus at the pancreatic head with evidence of communication with the pancreatic duct consistent with IV p.m. and. Recommend further evaluation with endoscopic ultrasound as possibility of intraductal IPMN must be considered. Abdominal and pelvic ascites. Mesenteric edema. Considerations include but not limited to ascites of unknown origin, ovarian malignancy, intraperitoneal metastases, hypoalbuminemia, etc. Correlate clinically. Mural thickening of the gastric antrum. Too small to characterize hepatic hypodensities; statistically likely cyst or hemangioma. Hypoattenuation of the liver compatible with hepatic steatosis. Hepatomegaly. Additional findings as above. Preliminary impression was provided by [employer]. Study marked for PA review.
[2018-03-08] MEDS ORDERED: Etomidate 20 mg/10ml Inj IV ONE (12:21)
[2018-03-08] MEDS ORDERED: Propofol 10 mg/ml Inj (20 ML) ONE (12:22)
--- NOTE | 2018-03-08 13:36 | CP.PCM.CON ---
History of Present Illness - History of Present Illness History of Present Illness: 63 year old female with a history of locally advance lung cancer on chemo+XRT with Dr. De Souza, presenting with worsening abdominal pain, found to have severe anemia. The patient notes to progressive stomach pain which has not responded to over the counter pain medication. Of note, she does take methadone. She denies abnormal bleeding and bruising. In the ER, she was found to have a hgb of 4.9 and undergoing PRBC transfusion. Past medical history: Polysubstance abuse, locally advance lung cancer. Past surgical history: Denies Family history: Denies hematologic and oncologic problems Social history: +tobacco, +polysubstance abuse Allergies: NKA Review of systems: All remaining review of systems including HEENT, ca rdiovascular, respiratory, gastrointestinal, genitourinary, musculoskeletal, dermatologic, neurologic, and psychiatric are negative unless mentioned in the HPI. Past Patient History - Past Social History Smoking Status: Heavy Smoker > 10 Cigarettes Daily - NEUROLOGICAL Hx Seizures: Yes - HEMATOLOGICAL/ONCOLOGICAL Hx Blood Disorders: Yes Hx Cancer: Yes (left lung) - MUSCULOSKELETAL/RHEUMATOLOGICAL Hx Fractures: Yes (left hip) - PSYCHIATRIC Hx Substance Use: Yes - SURGICAL HISTORY Hx Surgeries: Yes Hx Orthopedic Surgery: Yes (left breast) Meds Allergies/Adverse Reactions: Allergies Allergy/AdvReac Type Severity Reaction Status Date / Time No Known Allergies Allergy Verified 03/08/18 02:18 - Medications Medications: Current Medications Lorazepam (Ativan) 1 mg IVP Q6H PRN PRN Reason: Seizure activity Last Admin: 03/08/18 11:16 Dose: 1 mg Ondansetron HCl (Zofran Inj) 4 mg IVP Q6H PRN PRN Reason: Nausea/Vomiting Pantoprazole Sodium (Protonix Ec Tab) 40 mg PO DAILY [facility] Sucralfate (Carafate Oral Susp) 1 gm PO Q6H [facility] Physical Exam - Head Exam Head Exam: ATRAUMATIC - Eye Exam Eye Exam: Normal appearance - ENT Exam ENT Exam: Mucous Membranes Dry - Respiratory Exam Respiratory Exam: NORMAL BREATHING PATTERN - Cardiovascular Exam Cardiovascular Exam: +S1, +S2 - GI/Abdominal Exam GI & Abdominal Exam: Normal Bowel Sounds - Extremities Exam Extremities exam: Positive for: normal inspection Results - Vital Signs Recent Vital Signs: Last Vital Signs Temp 97 F L 03/08/18 12:43 Pulse 54 L 03/08/18 13:13 Resp 12 03/08/18 13:13 BP 126/93 H 03/08/18 13:13 Pulse Ox 100 03/08/18 13:13 - Labs Result Diagrams: 03/12/18 09:21 03/12/18 09:21 Labs: Laboratory Results - last 24 hr 03/08/18 03/08/18 03/08/18 03:37 03:37 04:19 WBC 4.0 L RBC 1.36 L Hgb 4.9 L* Hct 15.0 L MCV 110.1 H MCH 36.5 H MCHC 33.1 RDW 15.6 H Plt Count 230 MPV 8.3 Neut % (Auto) 68.5 Lymph % (Auto) 21.6 Ocean % (Auto) 6.8 Eos % (Auto) 1.8 Baso % (Auto) 1.3 Neut # (Auto) 2.7 Lymph # (Auto) 0.9 L Ocean # (Auto) 0.3 Eos # (Auto) 0.1 Baso # (Auto) 0.1 Retic Count PT INR APTT Sodium 134 Potassium 4.0 Chloride 101 Carbon Dioxide 23 Anion Gap 14 BUN 26 H Creatinine 1.3 H Est GFR ( Amer) 50 Est GFR (Non-Af Amer) 42 Random Glucose 83 Calcium 7.9 L Iron TIBC % Saturation Transferrin Ferritin Total Bilirubin 0.4 AST 236 H ALT 95 H Alkaline Phosphatase 57 Total Protein 6.1 L Albumin 3.6 Globulin 2.5 Albumin/Globulin Ratio 1.5 Lipase 119 Vitamin B12 Folate Urine Color Urine Clarity Urine pH Ur Specific Ulmer Urine Protein Urine Glucose (UA) Urine Ketones Urine Blood Urine Nitrate Urine Bilirubin Urine Urobilinogen Ur Leukocyte Esterase Urine WBC (Auto) Urine RBC (Auto) Ur Squamous Epith Cells Stool Occult Blood Positive H Urine Opiates Screen Urine Methadone Screen Ur Barbiturates Screen Phenytoin Ur Phencyclidine Scrn Ur Amphetamines Screen U Benzodiazepines Scrn U Oth Cocaine Metabols U Cannabinoids Screen Alcohol, Quantitative Blood Type Antibody Screen 03/08/18 03/08/18 03/08/18 04:31 08:56 08:56 WBC RBC Hgb Hct MCV MCH MCHC RDW Plt Count MPV Neut % (Auto) Lymph % (Auto) Ocean % (Auto) Eos % (Auto) Baso % (Auto) Neut # (Auto) Lymph # (Auto) Ocean # (Auto) Eos # (Auto) Baso # (Auto) Retic Count PT INR APTT Sodium Potassium Chloride Carbon Dioxide Anion Gap BUN Creatinine Est GFR ( Amer) Est GFR (Non-Af Amer) Random Glucose Calcium Iron TIBC % Saturation Transferrin Ferritin Total Bilirubin AST ALT Alkaline Phosphatase Total Protein Albumin Globulin Albumin/Globulin Ratio Lipase Vitamin B12 Folate Urine Color Straw Urine Clarity Clear Urine pH 6.0 Ur Specific Ulmer 1.028 Urine Protein Negative Urine Glucose (UA) Normal Urine Ketones Negative Urine Blood 3+ H Urine Nitrate Negative Urine Bilirubin Negative Urine Urobilinogen Normal Ur Leukocyte Esterase Neg Urine WBC (Auto) < 1 Urine RBC (Auto) 1 Ur Squamous Epith Cells < 1 Stool Occult Blood Urine Opiates Screen Positive H Urine Methadone Screen Positive H Ur Barbiturates Screen Negative Phenytoin Ur Phencyclidine Scrn Negative Ur Amphetamines Screen Negative U Benzodiazepines Scrn Negative U Oth Cocaine Metabols Negative U Cannabinoids Screen Negative Alcohol, Quantitative Blood Type O POSITIVE Antibody Screen Negative 03/08/18 03/08/18 03/08/18 09:42 09:42 09:42 WBC RBC Hgb Hct MCV MCH MCHC RDW Plt Count MPV Neut % (Auto) Lymph % (Auto) Ocean % (Auto) Eos % (Auto) Baso % (Auto) Neut # (Auto) Lymph # (Auto) Ocean # (Auto) Eos # (Auto) Baso # (Auto) Retic Count 3.3 H PT INR APTT Sodium Potassium Chloride Carbon Dioxide Anion Gap BUN Creatinine Est GFR ( Amer) Est GFR (Non-Af Amer) Random Glucose Calcium Iron 102 TIBC 216 L % Saturation 47 Transferrin Ferritin 987.0 Total Bilirubin AST ALT Alkaline Phosphatase Total Protein Albumin Globulin Albumin/Globulin Ratio Lipase Vitamin B12 531 Folate 8.2 Urine Color Urine Clarity Urine pH Ur Specific Ulmer Urine Protein Urine Glucose (UA) Urine Ketones Urine Blood Urine Nitrate Urine Bilirubin Urine Urobilinogen Ur Leukocyte Esterase Urine WBC (Auto) Urine RBC (Auto) Ur Squamous Epith Cells Stool Occult Blood Urine Opiates Screen Urine Methadone Screen Ur Barbiturates Screen Phenytoin Ur Phencyclidine Scrn Ur Amphetamines Screen U Benzodiazepines Scrn U Oth Cocaine Metabols U Cannabinoids Screen Alcohol, Quantitative < 10 Blood Type Antibody Screen 03/08/18 03/08/18 03/08/18 09:42 09:42 09:42 WBC RBC Hgb Hct MCV MCH MCHC RDW Plt Count MPV Neut % (Auto) Lymph % (Auto) Ocean % (Auto) Eos % (Auto) Baso % (Auto) Neut # (Auto) Lymph # (Auto) Ocean # (Auto) Eos # (Auto) Baso # (Auto) Retic Count PT INR APTT Sodium Potassium Chloride Carbon Dioxide Anion Gap BUN Creatinine Est GFR ( Amer) Est GFR (Non-Af Amer) Random Glucose Calcium Iron TIBC % Saturation 47 Transferrin 163.17 L Ferritin Total Bilirubin AST ALT Alkaline Phosphatase Total Protein Albumin Globulin Albumin/Globulin Ratio Lipase Vitamin B12 Folate Urine Color Urine Clarity Urine pH Ur Specific Ulmer Urine Protein Urine Glucose (UA) Urine Ketones Urine Blood Urine Nitrate Urine Bilirubin Urine Urobilinogen Ur Leukocyte Esterase Urine WBC (Auto) Urine RBC (Auto) Ur Squamous Epith Cells Stool Occult Blood Urine Opiates Screen Urine Methadone Screen Ur Barbiturates Screen Phenytoin < 3.0 L Ur Phencyclidine Scrn Ur Amphetamines Screen U Benzodiazepines Scrn U Oth Cocaine Metabols U Cannabinoids Screen Alcohol, Quantitative Blood Type Antibody Screen 03/08/18 09:42 WBC RBC Hgb Hct MCV MCH MCHC RDW Plt Count MPV Neut % (Auto) Lymph % (Auto) Ocean % (Auto) Eos % (Auto) Baso % (Auto) Neut # (Auto) Lymph # (Auto) Ocean # (Auto) Eos # (Auto) Baso # (Auto) Retic Count PT 10.6 INR 1.0 APTT 31 Sodium Potassium Chloride Carbon Dioxide Anion Gap BUN Creatinine Est GFR ( Amer) Est GFR (Non-Af Amer) Random Glucose Calcium Iron TIBC % Saturation Transferrin Ferritin Total Bilirubin AST ALT Alkaline Phosphatase Total Protein Albumin Globulin Albumin/Globulin Ratio Lipase Vitamin B12 Folate Urine Color Urine Clarity Urine pH Ur Specific Ulmer Urine Protein Urine Glucose (UA) Urine Ketones Urine Blood Urine Nitrate Urine Bilirubin Urine Urobilinogen Ur Leukocyte Esterase Urine WBC (Auto) Urine RBC (Auto) Ur Squamous Epith Cells Stool Occult Blood Urine Opiates Screen Urine Methadone Screen Ur Barbiturates Screen Phenytoin Ur Phencyclidine Scrn Ur Amphetamines Screen U Benzodiazepines Scrn U Oth Cocaine Metabols U Cannabinoids Screen Alcohol, Quantitative Blood Type Antibody Screen Assessment & Plan (1) Anemia Assessment and Plan: anemia of chemotherapy and radiation anemia of chronic disease anemia of CKD transfusion support PRN Status: Acute (2) Lung cancer Assessment and Plan: on chemoradiation outpatient f/u with primary oncologist Thank you for this interesting consult. Status: Acute
[2018-03-08] MEDS: Sucralfate 1 gm/10 ml Oral Susp UD PO SCH ×2 (14:23→19:00)
[2018-03-08] MEDS: Pantoprazole 40 mg EC Tab PO SCH (14:24)
[2018-03-08 20:54] LABS: MEAN CORPUSCULAR HEMOGLOBIN 33.5 pg (27.0-31.0); MEAN CORPUSCULAR HGB CONC 35.5 g/dL (33.0-37.0); MEAN PLATELET VOLUME 7.7 fL (7.2-11.7); RBC 2.67 Mil/uL (3.80-5.20); RED CELL DISTRIBUTION WIDTH 20.4 % (11.5-14.5); WHITE BLOOD COUNT 5.9 K/uL (4.8-10.8)
[2018-03-08 21:00] LABS: HEMOGLOBIN 8.9 g/dL (11.0-16.0); MEAN CELL VOLUME 94.3 fL (81.0-99.0)
--- NOTE | 2018-03-08 23:42 | CP.PCM.PCO ---
Physician Communication Note - Physician Communication Note Physician Communication Note: Pt not on the floor at 3 pm Case d/w resident. Dr. Echevarria will follow. Rx OK
[2018-03-09] MEDS: Sucralfate 1 gm/10 ml Oral Susp UD PO SCH ×4 (00:33→19:50)
--- NOTE | 2018-03-09 07:44 | CP.PCM.PN ---
<Donny Gimenez M - Last Filed: 03/09/18 19:44> Subjective - Date & Time of Evaluation Date of Evaluation: 03/09/18 Time of Evaluation: 11:00 - Subjective Subjective: PGY 1 Medicine Progress Note for Hospitalist Dr. Treadwell. patient seen and examined at bedside. No overnight events reported. Patient lying in bed, sleeping, no acute distress. Upon arrosual, patient states she is going through withdrawals and has abdominal cramps. Patient denies diarrhea, constipation, headaches, vision changes, chest pain, SOB, abdominal pain, d ysuria, hematura. Patient is POD #1 s/p EGD for GI bleed. Patient is passing gas, and had 1 bowel movement. Objective - Vital Signs/Intake and Output Vital Signs (last 24 hours): Temp Pulse Resp BP Pulse Ox 98 F 60 20 143/78 98 03/08/18 23:10 03/09/18 05:38 03/08/18 23:10 03/09/18 05:38 03/08/18 23:10 - Medications Medications: Current Medications Clonidine HCl (Catapres) 0.1 mg PO Q6H PRN PRN Reason: opioid withdrawal sxs Dicyclomine HCl (Bentyl) 10 mg PO Q6H PRN PRN Reason: gastric cramps Hydroxyzine HCl (Atarax) 25 mg PO Q6H PRN PRN Reason: Anxiety Influenza Virus Vaccine (Fluzone Quad [id number]) 60 mcg IM .ONCE ONE Stop: 03/10/18 10:01 Lorazepam (Ativan) 1 mg IVP Q6H PRN PRN Reason: Seizure activity Last Admin: 03/09/18 05:41 Dose: 1 mg Nicotine (Nicoderm Cq) 1 patch TD DAILY [facility] Ondansetron HCl (Zofran Inj) 4 mg IVP Q6H PRN PRN Reason: Nausea/Vomiting Pantoprazole Sodium (Protonix Ec Tab) 40 mg PO DAILY [facility] Last Admin: 03/08/18 14:24 Dose: 40 mg Pneumococcal Polyvalent Vaccine (Pneumovax 23 Vaccine) 0.5 ml IM .ONCE ONE Stop: 03/10/18 10:01 Sucralfate (Carafate Oral Susp) 1 gm PO Q6H [facility] Last Admin: 03/09/18 00:33 Dose: Not Given Trazodone HCl (Desyrel) 50 mg PO HS PRN PRN Reason: Insomnia Last Admin: 03/09/18 05:42 Dose: 50 mg - Labs Labs: 03/08/18 20:47 03/08/18 03:37 PT 10.6 SECONDS (9.7-12.2) 03/08/18 09:42 INR 1.0 03/08/18 09:42 APTT 31 SECONDS (21-34) 03/08/18 09:42 - Constitutional Appears: Non-toxic, No Acute Distress - Head Exam Head Exam: ATRAUMATIC, NORMAL INSPECTION, NORMOCEPHALIC - Eye Exam Eye Exam: Normal appearance - ENT Exam ENT Exam: Mucous Membranes Dry - Neck Exam Additional comments: L sided thyroid goiter - Respiratory Exam Respiratory Exam: Clear to Ausculation Bilateral, NORMAL BREATHING PATTERN. abs ent: Rales, Rhonchi, Wheezes - Cardiovascular Exam Cardiovascular Exam: +S1, +S2. absent: Murmur - GI/Abdominal Exam GI & Abdominal Exam: Soft, Tenderness, Normal Bowel Sounds Additional comments: diffuse tenderness, less than previous day - Extremities Exam Extremities Exam: Full ROM, Normal Inspection, Pedal Edema. absent: Calf Tenderness - Back Exam Back Exam: absent: CVA tenderness (L), CVA tenderness (R) - Neurological Exam Neurological Exam: Alert, Awake, Oriented x3 - Psychiatric Exam Psychiatric exam: Flat Affect, Normal Mood - Skin Skin Exam: Dry, Intact, Normal Color, Warm Additional comments: Multiple healing abrasion on arms/ wrists Assessment and Plan - Assessment and Plan (Free Text) Assessment: 63 F w/ PMHx of Lung ca (stage 2, receiving chemo & radiation @ [facility] w/ Dr. Alex De Souza), seizures (Dilantin 100 TID), ? hypothyroidism, presents to ED w/ 1 month of worsening abdominal pain; found in ED to have Hgb of 4.9. Acute anemia Resolved - on admission Hgb 4.9, fecal occult positive, epigastric & black tarry stools - 3 units PRBCs - F/u GI, Dr. Bello recs - EGD report: one non bleeding cratered duodenal ulcer w/ clean base found in 1st portion of duodenum, lession 13 mm in largest - diffuse mild inflammation w/ erythema in gastric body w/ biopsy taken - 1 cm hiatal hernia - F/u in 2 months for EGD for eval - Soft diet - sucralfate q6h - PPI PO daily - F/u heme/onc, Dr. Parikh recs - F/u iron studies (ferritin, TIBC, iron, iron saturation) - reticulocyte count 3.3 - reticulocyte index 0.47 - hypoproliferation - B12, folate - WNL - F/u LDH, hatoglobin - Records from [facility] in patient chart Hypothyroidism - pt on 25 mcg of levothyroxine at home for the past month - TSH 87.20 - F/u endo, Dr. Vizcaino recs - Thyroid Ab, thyroperoxidase Ab, levothyroxine 100 mcg IVP - F/u thyroid U/S - F/u TSH & Free T4 Malignancy Lung cancer - sees heme/onc - Dr. Alex De Souza @ [facility] - pt on chem/radition, last dose 1 month prior workup at [facility] Heroin Abuse - F/u Psych, Dr. Ortega, recs - methadone 5mg PO once - aspiration precautions seizure precautions Tobacco use - nicotine 7mg/24 hr patch - cessation History of Seizure - Dilantin level < 3 - Start home dose of dilantin 100 mg TID Alcohol Abuse - aspiration &s seizure precaution Prophylatic measure - DVT contraindicated due to GI bleed - GI: Protonix 40 mg PO daily <Laurel Treadwell V - Last Filed: 03/12/18 21:36> Objective - Vital Signs/Intake and Output Vital Signs (last 24 hours): Temp Pulse Resp BP Pulse Ox 98.6 F 105 H 18 118/78 98 03/12/18 15:36 03/12/18 15:36 03/12/18 15:36 03/12/18 15:36 03/12/18 15:36 - Medications Medications: Current Medications Al Hydrox/Mg Hydrox/Simethicone (Maalox 30 Ml) 30 ml PO Q6H PRN PRN Reason: Indigestion / Heartburn Amoxicillin (Amoxil 500 Mg Cap) 1,000 mg PO BID [facility]; Protocol Last Admin: 03/12/18 17:46 Dose: 1,000 mg Clarithromycin (Biaxin Filmtab) 500 mg PO Q12H [facility]; Protocol Last Admin: 03/12/18 21:18 Dose: 500 mg Clonidine HCl (Catapres) 0.1 mg PO Q6H PRN PRN Reason: opioid withdrawal sxs Dicyclomine HCl (Bentyl) 10 mg PO Q6H PRN PRN Reason: gastric cramps Famotidine (Pepcid) 20 mg PO DAILY [facility] Last Admin: 03/12/18 10:20 Dose: 20 mg Levothyroxine Sodium (Synthroid) 125 mcg PO DAILY@0630 [facility] Methadone HCl (Methadone) 10 mg PO Q24H [facility]; Taper Stop: 03/15/18 08:59 Last Admin: 03/12/18 10:18 Dose: 10 mg Metronidazole (Flagyl) 500 mg PO Q8 [facility]; Protocol Last Admin: 03/12/18 21:18 Dose: 500 mg Mirtazapine (Remeron) 30 mg PO HS [facility] Last Admin: 03/12/18 21:18 Dose: 30 mg Nicotine (Nicoderm Cq) 1 patch TD DAILY [facility] Last Admin: 03/12/18 10:20 Dose: 1 patch Phenytoin Sodium (Dilantin) 100 mg PO TID [facility] Last Admin: 03/12/18 17:45 Dose: 100 mg Sucralfate (Carafate Oral Susp) 1 gm PO Q6H [facility] Last Admin: 03/12/18 18:00 Dose: 1 gm - Labs Labs: 03/12/18 09:21 03/12/18 09:21 PT 10.6 SECONDS (9.7-12.2) 03/08/18 09:42 INR 1.0 03/08/18 09:42 APTT 31 SECONDS (21-34) 03/08/18 09:42 Assessment and Plan (1) Duodenal ulcer Status: Acute (2) Anemia Status: Acute (3) Heroin abuse Status: Acute (4) Severe hypothyroidism Status: Acute (5) History of lung cancer Status: Acute (6) Transaminitis Status: Acute (7) Seizure Status: Acute (8) Prophylactic measure Status: Acute Attending/Attestation - Attestation I have personally seen and examined this patient.: Yes I have fully participated in the care of the patient.: Yes I have reviewed all pertinent clinical information, including history, physical exam and plan: Yes Notes (Text): This is late computer entry for 03/09/18. Patient seen, examined and case discussed with biomedical engineering professor. Agree with assessment and plan as written by the resident. patient sp EGD for duodenal ulcer, nonbleeding, diet advanced by GI started on carafate and PPi. Patient noted to have severe hypothyroidism, will consult endocrinology.
[2018-03-09 09:15] LABS: HEMOGLOBIN 10.4 g/dL (11.0-16.0); MEAN CORPUSCULAR HEMOGLOBIN 33.2 pg (27.0-31.0); MEAN CORPUSCULAR HGB CONC 34.4 g/dL (33.0-37.0); MEAN PLATELET VOLUME 7.8 fL (7.2-11.7); RBC 3.14 Mil/uL (3.80-5.20); RED CELL DISTRIBUTION WIDTH 21.2 % (11.5-14.5); WHITE BLOOD COUNT 5.5 K/uL (4.8-10.8)
[2018-03-09 09:21] LABS: MEAN CELL VOLUME 96.4 fL (81.0-99.0)
[2018-03-09 09:35] LABS: ALB/GLOB RATIO 1.2 (1.0-2.1); CALCIUM 7.8 mg/dl (8.6-10.4)
[2018-03-09] MEDS: Pantoprazole 40 mg EC Tab PO SCH (09:39)
[2018-03-09 10:01] LABS: HEPATITIS B SURFACE AG Negative (NEGATIVE)
[2018-03-09 10:07] LABS: HEPATITIS A IGM NEGATIVE (NEGATIVE); HEPATITIS B CORE AB NEGATIVE (NEGATIVE)
[2018-03-09 10:18] LABS: HEPATITIS C ANTIBODY NEGATIVE (NEGATIVE)
--- NOTE | 2018-03-09 15:11 | CP.PCM.PN ---
<Steve Christine - Last Filed: 03/09/18 15:06> Subjective - Date & Time of Evaluation Date of Evaluation: 03/09/18 Time of Evaluation: 15:06 - Subjective Subjective: No acute events overnight. No further bleeding reported. Patient is tolerating diet. Requesting morphine for abdominal pain. Denies vomiting. Objective - Vital Signs/Intake and Output Vital Signs (last 24 hours): Temp Pulse Resp BP Pulse Ox 98.0 F 61 20 122/75 100 03/09/18 09:39 03/09/18 09:42 03/09/18 09:39 03/09/18 09:42 03/09/18 09:39 - Medications Medications: Current Medications Clonidine HCl (Catapres) 0.1 mg PO Q6H PRN PRN Reason: opioid withdrawal sxs Dicyclomine HCl (Bentyl) 10 mg PO Q6H PRN PRN Reason: gastric cramps Hydroxyzine HCl (Atarax) 25 mg PO Q6H PRN PRN Reason: Anxiety Influenza Virus Vaccine (Fluzone Quad [id number]) 60 mcg IM .ONCE ONE Stop: 03/10/18 10:01 Nicotine (Nicoderm Cq) 1 patch TD DAILY [facility] Last Admin: 03/09/18 09:39 Dose: 1 patch Ondansetron HCl (Zofran Inj) 4 mg IVP Q6H PRN PRN Reason: Nausea/Vomiting Pantoprazole Sodium (Protonix Ec Tab) 40 mg PO DAILY [facility] Last Admin: 03/09/18 09:39 Dose: 40 mg Phenytoin Sodium (Dilantin) 100 mg PO TID [facility] Last Admin: 03/09/18 13:53 Dose: 100 mg Pneumococcal Polyvalent Vaccine (Pneumovax 23 Vaccine) 0.5 ml IM .ONCE ONE Stop: 03/10/18 10:01 Sucralfate (Carafate Oral Susp) 1 gm PO Q6H [facility] Last Admin: 03/09/18 12:36 Dose: 1 gm Trazodone HCl (Desyrel) 50 mg PO HS PRN PRN Reason: Insomnia Last Admin: 03/09/18 05:42 Dose: 50 mg - Labs Labs: 03/09/18 09:10 03/09/18 09:10 PT 10.6 SECONDS (9.7-12.2) 03/08/18 09:42 INR 1.0 03/08/18 09:42 APTT 31 SECONDS (21-34) 03/08/18 09:42 - Constitutional Appears: Non-toxic, No Acute Distress, Chronically Ill - Head Exam Head Exam: NORMAL INSPECTION, NORMOCEPHALIC - Eye Exam Eye Exam: EOMI, Normal appearance - ENT Exam ENT Exam: Mucous Membranes Moist, Normal Exam - Respiratory Exam Respiratory Exam: Clear to Ausculation Bilateral, NORMAL BREATHING PATTERN - Cardiovascular Exam Cardiovascular Exam: REGULAR RHYTHM, +S1, +S2 - GI/Abdominal Exam GI & Abdominal Exam: Soft, Normal Bowel Sounds. absent: Tenderness - Neurological Exam Neurological Exam: Alert, Awake, Oriented x3 - Psychiatric Exam Psychiatric exam: Depressed, Flat Affect - Skin Skin Exam: Dry, Normal Color Assessment and Plan - Assessment and Plan (Free Text) Assessment: #Acute blood loss anemia due to likely upper GI bleed #Acute abdominal pain with NSAID abuse - Likely PUD, no signs of perforation #Elevated liver enzymes #Likely alcoholic liver disease #Lung cancer on chemo #Polysubstance abuse PLAN: -EGD 03/08/18 showing large friable and cratered duodenal ulcer (FC III). Biopsies taken of stomach for HP testing. -s/p 2u pRBCs -Sucralfate q6H -PPI PO daily -Advance diet to soft. -Recommend CIWA protocol -Avoid NSAIDs/anticoagulation. Patient understands. -She will need follow up EGD in 2 months to evaluate healing. -We will sign-off, please reconsult as needed. <Von Pressley - Last Filed: 03/10/18 07:56> Objective - Vital Signs/Intake and Output Vital Signs (last 24 hours): Temp Pulse Resp BP Pulse Ox 98.3 F 76 20 105/76 100 03/09/18 23:20 03/09/18 23:20 03/09/18 23:20 03/09/18 23:20 03/09/18 23:20 - Medications Medications: Current Medications Clonidine HCl (Catapres) 0.1 mg PO Q6H PRN PRN Reason: opioid withdrawal sxs Dicyclomine HCl (Bentyl) 10 mg PO Q6H PRN PRN Reason: gastric cramps Hydroxyzine HCl (Atarax) 25 mg PO Q6H PRN PRN Reason: Anxiety Influenza Virus Vaccine (Fluzone Quad [id number]) 60 mcg IM .ONCE ONE Stop: 03/10/18 10:01 Levothyroxine Sodium (Levothyroxine) 100 mcg IVP 0600 [facility] Last Admin: 03/10/18 06:58 Dose: 100 mcg Nicotine (Nicoderm Cq) 1 patch TD DAILY [facility] Last Admin: 03/09/18 09:39 Dose: 1 patch Ondansetron HCl (Zofran Inj) 4 mg IVP Q6H PRN PRN Reason: Nausea/Vomiting Last Admin: 03/09/18 17:32 Dose: 4 mg Pantoprazole Sodium (Protonix Ec Tab) 40 mg PO DAILY [facility] Last Admin: 03/09/18 09:39 Dose: 40 mg Phenytoin Sodium (Dilantin) 100 mg PO TID [facility] Last Admin: 03/09/18 17:30 Dose: 100 mg Pneumococcal Polyvalent Vaccine (Pneumovax 23 Vaccine) 0.5 ml IM .ONCE ONE Stop: 03/10/18 10:01 Sucralfate (Carafate Oral Susp) 1 gm PO Q6H [facility] Last Admin: 03/10/18 07:05 Dose: 1 gm Trazodone HCl (Desyrel) 50 mg PO HS PRN PRN Reason: Insomnia Last Admin: 03/09/18 21:38 Dose: 50 mg - Labs Labs: 03/09/18 09:10 03/10/18 07:28 PT 10.6 SECONDS (9.7-12.2) 03/08/18 09:42 INR 1.0 03/08/18 09:42 APTT 31 SECONDS (21-34) 03/08/18 09:42 Attending/Attestation - Attestation I have personally seen and examined this patient.: Yes I have fully participated in the care of the patient.: Yes I have reviewed all pertinent clinical information, including history, physical exam and plan: Yes Notes (Text): 03/10/18 07:51 Chart reviewed. The pt was interview and examined yesterday. The findings, assessment and recommendations were discussed with Dr. Christine and documented above. 03/10/18 07:56
--- NOTE | 2018-03-09 15:35 | CARD ---
APPROVED REPORT Date of service: 03/08/2018 EKG Measurement Heart [id number] <Conclusion> Normal sinus rhythm Left anterior fascicular block Abnormal ECG
[2018-03-09] MEDS ORDERED: Levothyroxine 200 mcg (0.2 mg) Inj IVP ONE (16:30)
--- NOTE | 2018-03-09 22:16 | CON ---
DATE: 03/09/2018 ENDOCRINOLOGY CONSULTATION LOCATION: Room 664. HISTORY OF PRESENT ILLNESS: This is a 63-year-old female, admitted with GI bleeding and marked anemia and is now being referred for endocrine evaluation for also marked hypothyroidism. PAST MEDICAL HISTORY: History of lung carcinoma, currently on chemotherapy at this time; history of seizure disorder, on Dilantin therapy; history of a previous abdominal surgery, but the exact details is not known at this time; history of polysubstance abuse as noted. FAMILY HISTORY: Positive for hypertension and heart disease. SOCIAL HISTORY: Admits to polysubstance use with nicotine dependence and chronic alcoholism and also known heroin abuse. REVIEW OF SYSTEMS: Admits to generalized body weakness with bifrontal headaches and episodic bouts of dizziness and lightheadedness. No chest pain or palpitations. Her oral intake has been valuable with nausea, dyspepsia, and supervening diffuse upper abdominal pain for the last one month, but worse in the last few days prior to admission. Also admits to sudden onset of melena and lower GI bleeding. PHYSICAL EXAMINATION: GENERAL: This is an average-built female, in no apparent distress. VITAL SIGNS: With a blood pressure of 140/80, pulse of 60 beats per minute and regular, temperature 98, respirations 20. Height is 5 feet 2 inches. Weight is 84 pounds. HEENT: Head is normocephalic. Eyes anicteric with pale conjunctivae. Funduscopy is not possible at this time. There is also evidence of fascial and periorbital edema. NECK: Supple. Thyroid gland is firm, but nontender with no overt nodules or bruits. HEART: Adynamic precordium. S1 and S2 are slow and regular. LUNGS: Clear to auscultation. ABDOMEN: Flat, soft with positive bowel sounds. EXTREMITIES: No peripheral edema. Pulses are +2 bilaterally. LABORATORY DATA: Initial hemoglobin was 4.9 and the last one today is 10.4. Chemistries: BUN of 17, sodium 135, potassium 4, chloride 105, CO2 of 23, glucose 133, and creatinine 1.4. Her TSH level is 87.20. ASSESSMENT: This is a 63-year-old female with overt hypothyroidism both historically, clinically and biochemically most likely related to underlying autoimmune thyroiditis, presenting here with upper gastrointestinal bleeding and melena with marked anemia and received blood transfusion as noted thereof. PLAN OF MANAGEMENT: We will initiate a stat dose of levothyroxine given as 200 mcg IV push today as ordered, starting tomorrow morning. We will add levothyroxine at 100 mcg IV push once daily as ordered. We will obtain a comprehensive thyroid hormonal profile to include thyroid antibodies, which will confirm and/or negate the presence of thyroid autoimmunity. If her TSH clinically improved, then we will switch over to oral levothyroxine therapy as indicated. We will follow. Corinna Vizcaino MD
[2018-03-10] MEDS: Sucralfate 1 gm/10 ml Oral Susp UD PO SCH ×4 (01:00→23:03)
[2018-03-10] MEDS: Levothyroxine 200 mcg (0.2 mg) Inj IVP SCH (06:58)
[2018-03-10 07:38] LABS: BASO % 0.5 % (0.0-2.0); EOS # 0.1 K/uL (0.0-0.7); EOS % 1.4 % (0.0-4.0); HEMOGLOBIN 10.4 g/dL (11.0-16.0); LYMPH % 21.6 % (20.0-40.0); MEAN CELL VOLUME 96.7 fL (81.0-99.0); MEAN CORPUSCULAR HEMOGLOBIN 33.1 pg (27.0-31.0); MEAN CORPUSCULAR HGB CONC 34.2 g/dL (33.0-37.0); MEAN PLATELET VOLUME 7.8 fL (7.2-11.7); MONO # 0.4 K/uL (0.0-0.8); MONO % 8.1 % (0.0-10.0); NEUT # 3.3 K/uL (1.8-7.0); NEUT % 68.4 % (50.0-75.0); NRBC % 0.1 % (0.0-2.0); RBC 3.13 Mil/uL (3.80-5.20); RED CELL DISTRIBUTION WIDTH 21.2 % (11.5-14.5); WHITE BLOOD COUNT 4.8 K/uL (4.8-10.8)
[2018-03-10 07:49] LABS: ALB/GLOB RATIO 1.2 (1.0-2.1); CALCIUM 7.7 mg/dl (8.6-10.4)
[2018-03-10 08:06] LABS: T4 8.96 ug/dL (5.5-11.0)
[2018-03-10] MEDS ORDERED: Pneumococcal 23-Valent Vaccine IM ONE (10:00)
[2018-03-10] MEDS ORDERED: Influenza Vaccine 60 MCG/0.5 ML SYR (3 yr & up) IM ONE (10:00)
[2018-03-10] MEDS: Pantoprazole 40 mg EC Tab PO SCH (10:08)
--- NOTE | 2018-03-10 12:34 | PCM.PSYCH ---
Initial Psychiatric Evaluation - Initial Psychiatric Evaluation Type of Admission: Voluntary Legal Status: Capacity Chief Complaint (in patient's own words): "I'm withdrawing" History of Present Illness and Precipitating Events: The pt is seen, chart reviewed and case discussed Consult was requested for her opioid abuse She is a 63 y/o AAF, single with4 children, lives with a daughter She admits to using 10 bags of heroin daily x10 years by snorting. One detox many years ago. No rehab, no NA Denies other drugs Smokes 2 cig / day Feels depressed, lonely, guilty, ashamed (hides drug use from children) but not suicidal No griselda or psychosis No past psych or family psych hx Medical hx: cancer, seizure d/o Current Medications: Active Medications Generic Name Dose Route Start Last Admin Trade Name Freq PRN Reason Stop Dose Admin Clonidine HCl 0.1 mg 03/08/18 23:37 Catapres PO Q6H PRN opioid withdrawal sxs Dicyclomine HCl 10 mg 03/08/18 23:37 Bentyl PO Q6H PRN gastric cramps Hydroxyzine HCl 25 mg 03/08/18 23:37 Atarax PO Q6H PRN Anxiety Levothyroxine Sodium 100 mcg 03/10/18 06:00 03/10/18 06:58 Levothyroxine IVP 100 mcg 0600 D[facility] Administration Nicotine 1 patch 03/09/18 10:00 03/10/18 10:13 Nicoderm Cq TD 1 patch DAILY DAN[facility]O Administration Ondansetron HCl 4 mg 03/08/18 13:03 03/10/18 10:09 Zofran Inj IVP 4 mg Q6H PRN Administration Nausea/Vomiting Pantoprazole Sodium 40 mg 03/08/18 13:00 03/10/18 10:08 Protonix Ec Tab PO 40 mg DAILY DANILO Administration Phenytoin Sodium 100 mg 03/09/18 14:00 03/10/18 10:08 Dilantin PO 100 mg TID DANILO Administration Sucralfate 1 gm 03/08/18 13:00 03/10/18 07:05 Carafate Oral Susp PO 1 gm Q6H D[facility]O Administration Trazodone HCl 50 mg 03/08/18 23:37 03/09/18 21:38 Desyrel PO 50 mg HS PRN Administration Insomnia Past Psychiatric History - Past Psychiatric History Previous Treatment History: None Pertinent Medical Hx (Current Medical&Sleep Prob, Allergies): Allergies Allergy/AdvReac Type Severity Reaction Status Date / Time No Known Allergies Allergy Verified 03/08/18 02:18 Dilantin 03/08/18 Unknown Chemotherapy Med 03/08/18 Review of Systems - Neurological Neurological: UNREMARKABLE - Psychiatric Psychiatric: Abnormal Sleep Pattern, Anhedonia, Anxiety, Change in Appetite, Depression, Difficulty Concentrating. absent: Hallucinations, Homicidal Ideation, Suicidal Ideation Mental Status Examination - Personal Presentation Personal Presentation: Looks stated age - Affect Affect: Constricted - Motor Activity Motor Activity: Calm - Reliability in Providing Information Reliability in Providing Information: Good - Speech Speech: Organized - Mood Mood: Depressed, Anxious - Formal Thought Process Formal Thought Process: No Impairment - Cognitive Functions Orientation: Person, Place, Situation, Time Sensorium: Drowsy Attention/Concentration: Easily distracted Estimate of Intelligence: Average Judgement: Intact, as evidence by: Insight regarding need for hospitalization Memory: Recent intact, as evidence by: Ability to recall events of the day, Remote intact, as evidenced by: Ability to recall historical events - Risk Risk: Withdrawal, Diminished functioning - Strength & Assets Inventory Strength & Assets Inventory: Cooperative - Limitations Limitations: Other DSM 5 DX - DSM 5 DSM 5 Diagnosis: Opioid withdrawal Opioid use d/o - severe Major depression, moderate, single - Recommended/Plan of Treatment Treatment Recommendations and Plan of Treatment: Taper with methadone Remeron for depression Gabapentin for augmentation if needed As needed medications All risks, benefits and alternatives of the meds discussed, and the pt agreed and understood. Supportive therapy and psychoeducation NC for abstinence Encourage MAT Refer to rehab or IOP, and self-help groups Teach healthy lifestyle methods, i.e. diet, exercise, meditation Smoking cessation 34 min
--- NOTE | 2018-03-10 12:58 | US ---
Date of service: 03/10/2018 HISTORY: goiter TECHNIQUE: Sonographic evaluation of the thyroid gland. COMPARISON: No prior similar study for comparison FINDINGS: RIGHT LOBE: Measures 3.3 x 0.8 x 1.3 cm. Normal echotexture and flow. Nodules: None LEFT LOBE: Measures 3.7 x 1.1 x 1.2 cm. Normal echotexture and flow. Nodules: None ISTHMUS: Measures 0.16 cm. Normal echotexture and flow. Nodules: None OTHER FINDINGS: None . IMPRESSION: Unremarkable thyroid sonogram.
--- NOTE | 2018-03-10 16:35 | CP.PCM.PN ---
<Srini Whitlock - Last Filed: 03/10/18 16:32> Subjective - Date & Time of Evaluation Date of Evaluation: 03/10/18 Time of Evaluation: 16:32 - Subjective Subjective: Hospitalist Service Pt seen and examined at bedside. Pt denies any acute events overnight. Pt has no symptoms of seizures, palpitations syncope. Pt denies cp sob fc nv. Pt improving clinically understands current status and agrees with plan of observation Objective - Vital Signs/Intake and Output Vital Signs (last 24 hours): Temp Pulse Resp BP Pulse Ox 98.1 F 70 18 112/71 99 03/10/18 07:30 03/10/18 07:30 03/10/18 07:30 03/10/18 07:30 03/10/18 07:30 - Medications Medications: Current Medications Clonidine HCl (Catapres) 0.1 mg PO Q6H PRN PRN Reason: opioid withdrawal sxs Dicyclomine HCl (Bentyl) 10 mg PO Q6H PRN PRN Reason: gastric cramps Hydroxyzine HCl (Atarax) 25 mg PO Q6H PRN PRN Reason: Anxiety Levothyroxine Sodium (Levothyroxine) 100 mcg IVP 0600 [facility] Last Admin: 03/10/18 06:58 Dose: 100 mcg Methadone HCl (Methadone) 10 mg PO Q24H [facility]; Taper Stop: 03/15/18 08:59 Mirtazapine (Remeron) 15 mg PO HS [facility] Nicotine (Nicoderm Cq) 1 patch TD DAILY [facility] Last Admin: 03/10/18 10:13 Dose: 1 patch Ondansetron HCl (Zofran Inj) 4 mg IVP Q6H PRN PRN Reason: Nausea/Vomiting Last Admin: 03/10/18 10:09 Dose: 4 mg Pantoprazole Sodium (Protonix Ec Tab) 40 mg PO DAILY [facility] Last Admin: 03/10/18 10:08 Dose: 40 mg Phenytoin Sodium (Dilantin) 100 mg PO TID [facility] Last Admin: 03/10/18 13:54 Dose: 100 mg Sucralfate (Carafate Oral Susp) 1 gm PO Q6H [facility] Last Admin: 03/10/18 13:54 Dose: 1 gm Trazodone HCl (Desyrel) 50 mg PO HS PRN PRN Reason: Insomnia Last Admin: 03/09/18 21:38 Dose: 50 mg - Labs Labs: 03/10/18 07:28 03/10/18 07:28 PT 10.6 SECONDS (9.7-12.2) 03/08/18 09:42 INR 1.0 03/08/18 09:42 APTT 31 SECONDS (21-34) 03/08/18 09:42 - Additional Findings Additional findings: - Constitutional Appears: Non-toxic, No Acute Distress - Head Exam Head Exam: ATRAUMATIC, NORMAL INSPECTION, NORMOCEPHALIC - Eye Exam Eye Exam: Normal appearance - ENT Exam ENT Exam: Mucous Membranes Dry - Neck Exam Additional comments: L sided thyroid goiter - Respiratory Exam Respiratory Exam: Clear to Ausculation Bilateral, NORMAL BREATHING PATTERN. absent: Rales, Rhonchi, Wheezes - Cardiovascular Exam Cardiovascular Exam: +S1, +S2. absent: Murmur - GI/Abdominal Exam GI & Abdominal Exam: Soft, Tenderness, Normal Bowel Sounds Additional comments: diffuse tenderness, less than previous day - Extremities Exam Extremities Exam: Full ROM, Normal Inspection, Pedal Edema. absent: Calf Tenderness - Back Exam Back Exam: absent: CVA tenderness (L), CVA tenderness (R) - Neurological Exam Neurological Exam: Alert, Awake, Oriented x3 - Psychiatric Exam Psychiatric exam: Flat Affect, Normal Mood - Skin Skin Exam: Dry, Intact, Normal Color, Warm Additional comments: Multiple healing abrasion on arms/ wrists Assessment and Plan - Assessment and Plan (Free Text) Assessment: 63 F w/ PMHx of Lung ca (stage 2, [place] & [place] [facility] [place]. Alex [place] Souza), seizures (Dilantin 100 TID), ? hypothyroidism, presents to ED w/ 1 month of worsening abdominal pain; found in ED to have Hgb of 4.9. Acute anemia Resolved - on admission Hgb 4.9, fecal occult positive, epigastric & black tarry stools - 3 units PRBCs - F/u GI, Dr. Ace lovett - EGD report: one non bleeding cratered duodenal ulcer w/ clean base found in 1st portion of duodenum, lession 13 mm in largest - diffuse mild inflammation w/ erythema in gastric body w/ biopsy taken - 1 cm hiatal hernia - F/u in 2 months for EGD for eval - Soft diet - sucralfate q6h - PPI PO daily - F/u heme/onc, Dr. Parikh recs - F/u iron studies (ferritin, TIBC, iron, iron saturation) - reticulocyte count 3.3 - reticulocyte index 0.47 - hypoproliferation - B12, folate - WNL - F/u LDH, hatoglobin - Records [place] [facility] [place] Hypothyroidism - pt on 25 mcg of levothyroxine at home for the past month - TSH >100 - F/u endo, Dr. Vizcaino recs - Thyroid Ab, thyroperoxidase Ab, levothyroxine 100 mcg IVP - 03/10 unremarkable thyroid U/S Malignancy Lung cancer - sees heme/onc - Dr. Alex [place] Souza [place] [facility] pt on chem/radition, last dose 1 month prior workup [place] [facility] Heroin Abuse - F/u Psych, Dr. Ortega, recs - methadone 5mg PO once - aspiration precautions seizure precautions Tobacco use - nicotine 7mg/24 hr patch - cessation History of Seizure - Dilantin level < 3 - Start home dose of dilantin 100 mg TID Alcohol Abuse - aspiration &s seizure precaution Prophylatic measure - DVT contraindicated due to GI bleed - GI: Protonix 40 mg PO daily dispo f/u thyroid abs, obs until thyroid fx normalizes <Laurel Treadwell V - Last Filed: 03/12/18 21:34> Objective - Vital Signs/Intake and Output Vital Signs (last 24 hours): Temp Pulse Resp BP Pulse Ox 98.6 F 105 H 18 118/78 98 03/12/18 15:36 03/12/18 15:36 03/12/18 15:36 03/12/18 15:36 03/12/18 15:36 - Medications Medications: Current Medications Al Hydrox/Mg Hydrox/Simethicone (Maalox 30 Ml) 30 ml PO Q6H PRN PRN Reason: Indigestion / Heartburn Amoxicillin (Amoxil 500 Mg Cap) 1,000 mg PO BID DANILO; Protocol Last Admin: 03/12/18 17:46 Dose: 1,000 mg Clarithromycin (Biaxin Filmtab) 500 mg PO Q12H DANILO; Protocol Last Admin: 03/12/18 21:18 Dose: 500 mg Clonidine HCl (Catapres) 0.1 mg PO Q6H PRN PRN Reason: opioid withdrawal sxs Dicyclomine HCl (Bentyl) 10 mg PO Q6H PRN PRN Reason: gastric cramps Famotidine (Pepcid) 20 mg PO DAILY [facility] Last Admin: 03/12/18 10:20 Dose: 20 mg Levothyroxine Sodium (Synthroid) 125 mcg PO DAILY@0630 [facility] Methadone HCl (Methadone) 10 mg PO Q24H [facility]; Taper Stop: 03/15/18 08:59 Last Admin: 03/12/18 10:18 Dose: 10 mg Metronidazole (Flagyl) 500 mg PO Q8 [facility]; Protocol Last Admin: 03/12/18 21:18 Dose: 500 mg Mirtazapine (Remeron) 30 mg PO HS [facility] Last Admin: 03/12/18 21:18 Dose: 30 mg Nicotine (Nicoderm Cq) 1 patch TD DAILY [facility] Last Admin: 03/12/18 10:20 Dose: 1 patch Phenytoin Sodium (Dilantin) 100 mg PO TID [facility] Last Admin: 03/12/18 17:45 Dose: 100 mg Sucralfate (Carafate Oral Susp) 1 gm PO Q6H [facility] Last Admin: 03/12/18 18:00 Dose: 1 gm - Labs Labs: 03/12/18 09:21 03/12/18 09:21 PT 10.6 SECONDS (9.7-12.2) 03/08/18 09:42 INR 1.0 03/08/18 09:42 APTT 31 SECONDS (21-34) 03/08/18 09:42 Assessment and Plan (1) Duodenal ulcer Status: Acute (2) Anemia Status: Acute (3) Heroin abuse Status: Acute (4) Severe hypothyroidism Status: Acute (5) History of lung cancer Status: Acute (6) Transaminitis Status: Acute (7) Seizure Status: Acute (8) Prophylactic measure Status: Acute Attending/Attestation - Attestation I have personally seen and examined this patient.: Yes I have fully participated in the care of the patient.: Yes I have reviewed all pertinent clinical information, including history, physical exam and plan: Yes Notes (Text): This is late computer entry for 03/10/18. Patient seen, examined, and case discussed with day-time resident. Patient reports she feels weak. Patient undergoing methadone taper for known heroin abuse. Patient's TSH being monitored by endocrinology who have started IV levothyroxi ne. GI has signed off on the case. Consult PT in light of weakness.
[2018-03-11] MEDS: Sucralfate 1 gm/10 ml Oral Susp UD PO SCH ×4 (02:18→19:11)
[2018-03-11] MEDS: Levothyroxine 200 mcg (0.2 mg) Inj IVP SCH (06:55)
[2018-03-11 08:52] LABS: BASO % 0.7 % (0.0-2.0); EOS # 0.1 K/uL (0.0-0.7); EOS % 1.1 % (0.0-4.0); LYMPH # 1.3 K/uL (1.0-4.3); LYMPH % 20.1 % (20.0-40.0); MEAN CELL VOLUME 97.5 fL (81.0-99.0); MEAN CORPUSCULAR HEMOGLOBIN 33.2 pg (27.0-31.0); MEAN PLATELET VOLUME 7.8 fL (7.2-11.7); MONO # 0.5 K/uL (0.0-0.8); MONO % 7.7 % (0.0-10.0); NEUT # 4.6 K/uL (1.8-7.0); NEUT % 70.4 % (50.0-75.0); NRBC % 0.1 % (0.0-2.0); RBC 3.01 Mil/uL (3.80-5.20); RED CELL DISTRIBUTION WIDTH 21.4 % (11.5-14.5); WHITE BLOOD COUNT 6.5 K/uL (4.8-10.8)
[2018-03-11 09:04] LABS: ALB/GLOB RATIO 1.2 (1.0-2.1); ALBUMIN 2.9 g/dL (3.5-5.0); CALCIUM 8.1 mg/dl (8.6-10.4)
[2018-03-11 09:19] LABS: T4 6.35 ug/dL (5.5-11.0)
[2018-03-11] MEDS: Pantoprazole 40 mg EC Tab PO SCH (09:40)
--- NOTE | 2018-03-11 14:38 | PN ---
DATE: 03/11/2018 ENDOCRINOLOGY FOLLOWUP NOTE LOCATION: In room 664. SUBJECTIVE: This is a 63-year-old female with marked anemia from underlying GI bleeding and currently also being followed closely for metabolic management. She also had marked hypothyroxinemia as noted on admission and as tolerated, the parenteral levothyroxine replacement therapy is given. LABORATORY DATA: Her latest hemoglobin is now 10 with hematocrit of 29 and MCV of 97.5. Her latest chemistry showed a BUN of 18, sodium 136, potassium 4.2, chloride 105, CO2 of 26, glucose 75, and creatinine 1.5. Her repeat TSH is 99.90 with a T4 of 6.35. ASSESSMENT AND PLAN: So at this time, we will continue the levothyroxine given as 100 mcg intravenous push once daily as ordered and repeat thyroid studies tomorrow and consider switching over to oral levothyroxine therapy as indicated. We will follow. Corinna Vizcaino MD
--- NOTE | 2018-03-11 17:05 | CP.PCM.PN ---
Subjective - Date & Time of Evaluation Date of Evaluation: 03/11/18 Time of Evaluation: 17:00 - Subjective Subjective: Medical Attending Note Patient seen and examined. Patient seen after eating dinner. Patient reports abdominal pain, reports black stool, denies problems with urination, denies chest pain, denies headache, denies fever. Objective - Vital Signs/Intake and Output Vital Signs (last 24 hours): Temp Pulse Resp BP Pulse Ox 98.4 F 98 H 20 109/77 98 03/11/18 16:00 03/11/18 16:00 03/11/18 16:00 03/11/18 16:00 03/11/18 16:00 - Medications Medications: Current Medications Clonidine HCl (Catapres) 0.1 mg PO Q6H PRN PRN Reason: opioid withdrawal sxs Dicyclomine HCl (Bentyl) 10 mg PO Q6H PRN PRN Reason: gastric cramps Hydroxyzine HCl (Atarax) 25 mg PO Q6H PRN PRN Reason: Anxiety Levothyroxine Sodium (Levothyroxine) 100 mcg IVP 0600 [facility] Last Admin: 03/11/18 06:55 Dose: 100 mcg Methadone HCl (Methadone) 10 mg PO Q24H [facility]; Taper Stop: 03/15/18 08:59 Last Admin: 03/11/18 09:40 Dose: 10 mg Mirtazapine (Remeron) 15 mg PO HS [facility] Last Admin: 03/10/18 22:47 Dose: 15 mg Nicotine (Nicoderm Cq) 1 patch TD DAILY [facility] Last Admin: 03/11/18 09:41 Dose: 1 patch Ondansetron HCl (Zofran Inj) 4 mg IVP Q6H PRN PRN Reason: Nausea/Vomiting Last Admin: 03/10/18 10:09 Dose: 4 mg Pantoprazole Sodium (Protonix Ec Tab) 40 mg PO DAILY [facility] Last Admin: 03/11/18 09:40 Dose: 40 mg Phenytoin Sodium (Dilantin) 100 mg PO TID [facility] Last Admin: 03/11/18 14:40 Dose: 100 mg Sucralfate (Carafate Oral Susp) 1 gm PO Q6H [facility] Last Admin: 03/11/18 14:40 Dose: 1 gm Trazodone HCl (Desyrel) 50 mg PO HS PRN PRN Reason: Insomnia Last Admin: 03/10/18 22:47 Dose: 50 mg - Labs Labs: 03/11/18 08:44 03/11/18 08:44 PT 10.6 SECONDS (9.7-12.2) 03/08/18 09:42 INR 1.0 03/08/18 09:42 APTT 31 SECONDS (21-34) 03/08/18 09:42 - Constitutional Appears: Non-toxic, No Acute Distress - Head Exam Head Exam: NORMAL INSPECTION - Eye Exam Eye Exam: EOMI - ENT Exam ENT Exam: Mucous Membranes Moist - Respiratory Exam Respiratory Exam: Decreased Breath Sounds, NORMAL BREATHING PATTERN. absent: Rales, Rhonchi, Wheezes - Cardiovascular Exam Cardiovascular Exam: REGULAR RHYTHM, +S1, +S2 - GI/Abdominal Exam GI & Abdominal Exam: Soft, Normal Bowel Sounds. absent: Distended, Firm, Guarding, Rigid, Tenderness, Rebound - Extremities Exam Extremities Exam: absent: Pedal Edema, Tenderness - Neurological Exam Neurological Exam: Alert, Awake, Oriented x3 - Psychiatric Exam Psychiatric exam: Normal Affect, Normal Mood - Skin Skin Exam: Dry, Intact, Normal Color, Warm Assessment and Plan (1) Duodenal ulcer Assessment & Plan: GI on consult-->help appreciated Endoscopy: normal esophagus, 1cm hiatal hernia, gastritis, biopsied. one non- bleeding duodenal ulcer with a clean ulcer base. Follow-up pathology result. Patient is on Carafate 1gm PO Q6H Status: Acute (2) Anemia Assessment & Plan: Acute on chronic anemia s/p 2 unit of PRBC H/H stable ulcer nonbleeding protonix 40mg po daily Status: Acute (3) Heroin abuse Assessment & Plan: Methadone 15mg PO X1 03/10 Methadone detox today Status: Acute (4) Severe hypothyroidism Assessment & Plan: Endocrinology on case help appreciated Levothyroxine 100mcg IVP today f/u endocrinology regarding when to switch to PO Thyroid US: unremarkable thryoid sonogram TSH: 87.20-->107.00-->99.9 Thyroperoxidase AB: 164 (elevated) Thyroglobulin <1 Status: Acute (5) History of lung cancer Assessment & Plan: f/u [facility] clinic Status: Acute (6) Transaminitis Assessment & Plan: improving hepatitis panel negative Status: Acute (7) Seizure Assessment & Plan: dilantin level low seizure precautions Dilantin 100mg PO TID Status: Acute (8) Prophylactic measure Assessment & Plan: contraindications chemical secondary DVT ppx protonix 40mg PO daily for GI ppx PT: recommended for TCU Status: Acute
[2018-03-11] MEDS ORDERED: Aluminum Hydroxide/Magnesium Hydroxide Susp (30 mL) PO PRN (17:13)
[2018-03-11] MEDS ORDERED: Sodium Chloride 0.9% 1,000 ML IV SCH (17:15)
[2018-03-12] MEDS: Sucralfate 1 gm/10 ml Oral Susp UD PO SCH ×4 (01:02→18:00)
[2018-03-12] MEDS: Levothyroxine 200 mcg (0.2 mg) Inj IVP SCH (06:32)
--- NOTE | 2018-03-12 08:07 | CP.PCM.PN ---
Subjective - Date & Time of Evaluation Date of Evaluation: 03/12/18 Time of Evaluation: 08:00 - Subjective Subjective: Medical Attending Note: Patient seen and examined at bedside. Patient reports her stomach is bothering her. She tried the Maalox but did not help. Patient reports she has used the bathroom about 4 times already this morning but feels constipated. Patient denies nausea, denies leg cramps, denies fever, denies constipation, denies chest pain, denies shortness of breath. Objective - Vital Signs/Intake and Output Vital Signs (last 24 hours): Temp Pulse Resp BP Pulse Ox 98.3 F 92 H 20 119/81 100 03/12/18 07:00 03/12/18 07:00 03/12/18 07:00 03/12/18 07:00 03/12/18 07:00 Intake and Output: 03/12/18 03/12/18 06:59 18:59 Intake Total 200 Balance 200 - Medications Medications: Current Medications Al Hydrox/Mg Hydrox/Simethicone (Maalox 30 Ml) 30 ml PO Q6H PRN PRN Reason: Indigestion / Heartburn Clonidine HCl (Catapres) 0.1 mg PO Q6H PRN PRN Reason: opioid withdrawal sxs Dicyclomine HCl (Bentyl) 10 mg PO Q6H PRN PRN Reason: gastric cramps Hydroxyzine HCl (Atarax) 25 mg PO Q6H PRN PRN Reason: Anxiety Sodium Chloride (Sodium Chloride 0.9%) 1,000 mls @ 50 mls/hr IV .Q20H [facility] Stop: 03/12/18 17:16 Last Admin: 03/11/18 18:18 Dose: 50 mls/hr Levothyroxine Sodium (Levothyroxine) 100 mcg IVP 0600 [facility] Last Admin: 03/12/18 06:32 Dose: 100 mcg Methadone HCl (Methadone) 10 mg PO Q24H [facility]; Taper Stop: 03/15/18 08:59 Last Admin: 03/11/18 09:40 Dose: 10 mg Mirtazapine (Remeron) 15 mg PO HS [facility] Last Admin: 03/11/18 22:07 Dose: 15 mg Nicotine (Nicoderm Cq) 1 patch TD DAILY [facility] Last Admin: 03/11/18 09:41 Dose: 1 patch Ondansetron HCl (Zofran Inj) 4 mg IVP Q6H PRN PRN Reason: Nausea/Vomiting Last Admin: 03/10/18 10:09 Dose: 4 mg Pantoprazole Sodium (Protonix Ec Tab) 40 mg PO DAILY [facility] Last Admin: 03/11/18 09:40 Dose: 40 mg Phenytoin Sodium (Dilantin) 100 mg PO TID [facility] Last Admin: 03/11/18 19:00 Dose: 100 mg Sucralfate (Carafate Oral Susp) 1 gm PO Q6H [facility] Last Admin: 03/12/18 06:33 Dose: 1 gm Trazodone HCl (Desyrel) 50 mg PO HS PRN PRN Reason: Insomnia Last Admin: 03/10/18 22:47 Dose: 50 mg - Labs Labs: 03/11/18 08:44 03/11/18 08:44 PT 10.6 SECONDS (9.7-12.2) 03/08/18 09:42 INR 1.0 03/08/18 09:42 APTT 31 SECONDS (21-34) 03/08/18 09:42 - Constitutional Appears: Non-toxic, In Acute Distress, Cachectic - Head Exam Head Exam: NORMAL INSPECTION - Eye Exam Eye Exam: EOMI - ENT Exam ENT Exam: Mucous Membranes Moist - Respiratory Exam Respiratory Exam: Clear to Ausculation Bilateral. absent: Decreased Breath Sounds - Cardiovascular Exam Cardiovascular Exam: RRR, +S1, +S2 - GI/Abdominal Exam GI & Abdominal Exam: Soft, Tenderness (epigastric tenderness), Normal Bowel Sounds. absent: Distended, Rigid, Mass - Extremities Exam Additional comments: right lower extremity: wrapped in splint, sensation intact, able to wiggle toes, nontender left lower extremity: scratch zaragoza - Back Exam Back Exam: absent: CVA tenderness (L), CVA tenderness (R) Additional comments: scratch zaragoza - Neurological Exam Neurological Exam: Alert, Awake, Oriented x3 - Skin Skin Exam: Dry, Intact, Warm Assessment and Plan (1) Duodenal ulcer Status: Acute (2) Anemia Status: Acute (3) Heroin abuse Status: Acute (4) Severe hypothyroidism Status: Acute (5) History of lung cancer Status: Acute (6) Transaminitis Status: Acute (7) Seizure Status: Acute (8) Prophylactic measure Status: Acute Attending/Attestation - Attestation I have personally seen and examined this patient.: Yes I have fully participated in the care of the patient.: Yes I have reviewed all pertinent clinical information, including history, physical exam and plan: Yes Notes (Text): Assessment and Plan (1) Duodenal ulcer Gastritis H. Pylori positive Assessment & Plan: * GI on consult-->help appreciated * Endoscopy: normal esophagus, 1cm hiatal hernia, gastritis, biopsied. one non- bleeding duodenal ulcer with a clean ulcer base. Follow-up pathology result. * Pathology: moderate chronic active gastritis. H. Pylori positive * Patient is on Carafate 1gm PO Q6H * H Pylori positive (start 03/11/18) * Protonix 40mg PO BID * Flagyl 500mg PO BID * Amoxicillin 100mg PO QID * Clarithromycin 500mg PO BID * Start bland/altered diet Status: Acute (2) Anemia Assessment & Plan: * Acute on chronic anemia * s/p 2 unit of PRBC * H/H stable * ulcer nonbleeding * protonix 40mg po BID Status: Acute (3) Heroin abuse Assessment & Plan: * Methadone 15mg PO X1 03/10 * Methadone detox taper (03/11/18) Status: Acute (4) Severe hypothyroidism Assessment & Plan: * Endocrinology on case help appreciated * Levothyroxine 100mcg IVP today * f/u endocrinology regarding when to switch to PO * Thyroid US: unremarkable thryoid sonogram * TSH: 87.20-->107.00-->99.9 * Thyroperoxidase AB: 164 (elevated) * Thyroglobulin <1 Status: Acute (5) History of lung cancer Assessment & Plan: * f/u [facility] clinic Status: Acute (6) Transaminitis Assessment & Plan: * hepatitis panel negative Status: Acute (7) Seizure Assessment & Plan: * dilantin level low * seizure precautions * Dilantin 100mg PO TID Status: Acute (8) Prophylactic measure Assessment & Plan: * contraindications chemical secondary DVT ppx * protonix 40mg PO BID for GI ppx * PT: recommended for TCU Status: Acute Disposition: awaiting blood work this morning to follow-up TSH to determine if eligible from IV to PO synthroid. Patient has h pylori positive started therapy today.
[2018-03-12 09:32] LABS: BASO % 0.6 % (0.0-2.0); EOS # 0.1 K/uL (0.0-0.7); HEMOGLOBIN 10.8 g/dL (11.0-16.0); LYMPH # 1.4 K/uL (1.0-4.3); LYMPH % 22.9 % (20.0-40.0); MEAN CORPUSCULAR HEMOGLOBIN 33.1 pg (27.0-31.0); MEAN CORPUSCULAR HGB CONC 33.2 g/dL (33.0-37.0); MEAN PLATELET VOLUME 8.1 fL (7.2-11.7); MONO # 0.6 K/uL (0.0-0.8); MONO % 9.7 % (0.0-10.0); NEUT % 65.8 % (50.0-75.0); NRBC % 0.1 % (0.0-2.0); RBC 3.25 Mil/uL (3.80-5.20); RED CELL DISTRIBUTION WIDTH 21.6 % (11.5-14.5); WHITE BLOOD COUNT 6.1 K/uL (4.8-10.8)
[2018-03-12 09:46] LABS: MEAN CELL VOLUME 99.9 fL (81.0-99.0)
[2018-03-12 10:18] LABS: ALB/GLOB RATIO 1.2 (1.0-2.1); ALBUMIN 3.5 g/dL (3.5-5.0); CALCIUM 8.9 mg/dl (8.6-10.4)
[2018-03-12 10:22] LABS: T4 6.43 ug/dL (5.5-11.0)
--- NOTE | 2018-03-12 12:30 | PCM.PYCHPN ---
Psychiatric Progress Note - Psychiatric Progress Note Patient Chief Complaint: "I'm withdrawing" Medication Change: Yes (detox changes daily) Medical Record Reviewed: Yes Mental Status Examination - Cognitive Function Orientation: Person, Place, Situation, Time - Mood Mood: Depressed, Anxious - Affect Affect: Constricted - Formal Thought Process Formal Thought Process: No Impairment Goal/Treatment Plan - Goal/Treatment Plan Progress Toward Problem(s) and Goals/Treatment Plan: Taper with methadone Remeron for depression Gabapentin for augmentation if needed As needed medications All risks, benefits and alternatives of the meds discussed, and the pt agreed and understood. Supportive therapy and psychoeducation OK for abstinence Encourage MAT Refer to rehab or IOP, and self-help groups Teach healthy lifestyle methods, i.e. diet, exercise, meditation Smoking cessation 34 min
--- NOTE | 2018-03-12 15:20 | PN ---
DATE: 03/12/2018 ENDOCRINOLOGY FOLLOWUP NOTE LOCATION: In room 664. SUBJECTIVE: This is a 63-year-old female with overt hypothyroidism noted both historically, clinically, and biochemically, most likely related to underlying autoimmune thyroiditis and is now being followed closely for metabolic management. She also presented here with marked anemia and is improving also hemodynamically as noted thereof. LABORATORY DATA: Her latest TSH level is 80.10 with a T4 of 6.43. Her chemistries showed a BUN of 24, sodium 139, potassium 4.1, chloride 106, CO2 of 26, glucose 75, and creatinine 1.5. ASSESSMENT AND PLAN: So at this time, we will continue the levothyroxine given as 100 mcg intravenous push as given today and tomorrow we will switch her over to oral levothyroxine given as 125 mcg p.o. once daily in the morning as ordered. We will obtain serial chemistries and supplement accordingly as needed. We will also obtain serial thyroid studies and titrate the dose regimen accordingly. It takes four to six weeks for the thyroid-stimulating hormone to normalize from the oral levothyroxine therapy as given. Corinna Vizcaino MD
--- NOTE | 2018-03-13 01:04 | CP.PCM.PN ---
Subjective - Date & Time of Evaluation Date of Evaluation: 03/10/18 Time of Evaluation: 13:00 - Subjective Subjective: Feeling better. Objective - Vital Signs/Intake and Output Vital Signs (last 24 hours): Temp Pulse Resp BP Pulse Ox 98.6 F 105 H 18 118/78 98 03/12/18 15:36 03/12/18 15:36 03/12/18 15:36 03/12/18 15:36 03/12/18 15:36 - Medications Medications: Current Medications Al Hydrox/Mg Hydrox/Simethicone (Maalox 30 Ml) 30 ml PO Q6H PRN PRN Reason: Indigestion / Heartburn Amoxicillin (Amoxil 500 Mg Cap) 1,000 mg PO BID [facility]; Protocol Last Admin: 03/12/18 17:46 Dose: 1,000 mg Clarithromycin (Biaxin Filmtab) 500 mg PO Q12H [facility]; Protocol Last Admin: 03/12/18 21:18 Dose: 500 mg Clonidine HCl (Catapres) 0.1 mg PO Q6H PRN PRN Reason: opioid withdrawal sxs Dicyclomine HCl (Bentyl) 10 mg PO Q6H PRN PRN Reason: gastric cramps Famotidine (Pepcid) 20 mg PO DAILY [facility] Last Admin: 03/12/18 10:20 Dose: 20 mg Levothyroxine Sodium (Synthroid) 125 mcg PO DAILY@0630 [facility] Methadone HCl (Methadone) 10 mg PO Q24H [facility]; Taper Stop: 03/15/18 08:59 Last Admin: 03/12/18 10:18 Dose: 10 mg Metronidazole (Flagyl) 500 mg PO Q8 [facility]; Protocol Last Admin: 03/12/18 21:18 Dose: 500 mg Mirtazapine (Remeron) 30 mg PO HS [facility] Last Admin: 03/12/18 21:18 Dose: 30 mg Nicotine (Nicoderm Cq) 1 patch TD DAILY [facility] Last Admin: 03/12/18 10:20 Dose: 1 patch Phenytoin Sodium (Dilantin) 100 mg PO TID [facility] Last Admin: 03/12/18 17:45 Dose: 100 mg Sucralfate (Carafate Oral Susp) 1 gm PO Q6H [facility] Last Admin: 03/12/18 18:00 Dose: 1 gm - Labs Labs: 03/12/18 09:21 03/12/18 09:21 PT 10.6 SECONDS (9.7-12.2) 03/08/18 09:42 INR 1.0 03/08/18 09:42 APTT 31 SECONDS (21-34) 03/08/18 09:42 - Head Exam Head Exam: ATRAUMATIC - Eye Exam Eye Exam: Normal appearance - ENT Exam ENT Exam: Mucous Membranes Dry - Respiratory Exam Respiratory Exam: NORMAL BREATHING PATTERN - Cardiovascular Exam Cardiovascular Exam: +S1, +S2 - GI/Abdominal Exam GI & Abdominal Exam: Normal Bowel Sounds Assessment and Plan (1) Anemia Assessment & Plan: chronic disease anemia of chemotherapy ?anemia of CKD s/p transfusion Status: Acute (2) Lung cancer Assessment & Plan: outpatient treatment with primary oncologist Status: Acute
--- NOTE | 2018-03-13 01:06 | CP.PCM.PN ---
Subjective - Date & Time of Evaluation Date of Evaluation: 03/11/18 Time of Evaluation: 16:00 - Subjective Subjective: Has some abdominal pain. Objective - Vital Signs/Intake and Output Vital Signs (last 24 hours): Temp Pulse Resp BP Pulse Ox 98.6 F 105 H 18 118/78 98 03/12/18 15:36 03/12/18 15:36 03/12/18 15:36 03/12/18 15:36 03/12/18 15:36 - Medications Medications: Current Medications Al Hydrox/Mg Hydrox/Simethicone (Maalox 30 Ml) 30 ml PO Q6H PRN PRN Reason: Indigestion / Heartburn Amoxicillin (Amoxil 500 Mg Cap) 1,000 mg PO BID [facility]; Protocol Last Admin: 03/12/18 17:46 Dose: 1,000 mg Clarithromycin (Biaxin Filmtab) 500 mg PO Q12H [facility]; Protocol Last Admin: 03/12/18 21:18 Dose: 500 mg Clonidine HCl (Catapres) 0.1 mg PO Q6H PRN PRN Reason: opioid withdrawal sxs Dicyclomine HCl (Bentyl) 10 mg PO Q6H PRN PRN Reason: gastric cramps Famotidine (Pepcid) 20 mg PO DAILY [facility] Last Admin: 03/12/18 10:20 Dose: 20 mg Levothyroxine Sodium (Synthroid) 125 mcg PO DAILY@0630 [facility] Methadone HCl (Methadone) 10 mg PO Q24H [facility]; Taper Stop: 03/15/18 08:59 Last Admin: 03/12/18 10:18 Dose: 10 mg Metronidazole (Flagyl) 500 mg PO Q8 [facility]; Protocol Last Admin: 03/12/18 21:18 Dose: 500 mg Mirtazapine (Remeron) 30 mg PO HS [facility] Last Admin: 03/12/18 21:18 Dose: 30 mg Nicotine (Nicoderm Cq) 1 patch TD DAILY [facility] Last Admin: 03/12/18 10:20 Dose: 1 patch Phenytoin Sodium (Dilantin) 100 mg PO TID [facility] Last Admin: 03/12/18 17:45 Dose: 100 mg Sucralfate (Carafate Oral Susp) 1 gm PO Q6H [facility] Last Admin: 03/12/18 18:00 Dose: 1 gm - Labs Labs: 03/12/18 09:21 03/12/18 09:21 PT 10.6 SECONDS (9.7-12.2) 03/08/18 09:42 INR 1.0 03/08/18 09:42 APTT 31 SECONDS (21-34) 03/08/18 09:42 - Head Exam Head Exam: ATRAUMATIC - Eye Exam Eye Exam: Normal appearance - ENT Exam ENT Exam: Mucous Membranes Dry - Respiratory Exam Respiratory Exam: NORMAL BREATHING PATTERN - Cardiovascular Exam Cardiovascular Exam: +S1, +S2 - GI/Abdominal Exam GI & Abdominal Exam: Normal Bowel Sounds Assessment and Plan (1) Anemia Assessment & Plan: anemia of chronic disease anemia of chemotherapy ? anemia of CKD s/p PRBC transfusion Status: Acute (2) Lung cancer Assessment & Plan: outpatient treatment with primary oncologist. Status: Acute
[2018-03-13] MEDS: Sucralfate 1 gm/10 ml Oral Susp UD PO SCH ×4 (01:22→19:03)
[2018-03-13 02:01] VITALS: RESP 20
[2018-03-13] MEDS: Levothyroxine 125 MCG TAB PO SCH (06:22)
[2018-03-13 06:33] LABS: BASO % 0.7 % (0.0-2.0); EOS # 0.1 K/uL (0.0-0.7); EOS % 1.9 % (0.0-4.0); LYMPH # 1.3 K/uL (1.0-4.3); LYMPH % 21.4 % (20.0-40.0); MEAN CELL VOLUME 99.2 fL (81.0-99.0); MEAN CORPUSCULAR HGB CONC 33.3 g/dL (33.0-37.0); MEAN PLATELET VOLUME 7.8 fL (7.2-11.7); MONO # 0.8 K/uL (0.0-0.8); MONO % 12.3 % (0.0-10.0); NEUT # 3.9 K/uL (1.8-7.0); NEUT % 63.7 % (50.0-75.0); NRBC % 0.1 % (0.0-2.0); RBC 3.03 Mil/uL (3.80-5.20); RED CELL DISTRIBUTION WIDTH 21.2 % (11.5-14.5); WHITE BLOOD COUNT 6.1 K/uL (4.8-10.8)
[2018-03-13 06:54] LABS: ALB/GLOB RATIO 1.2 (1.0-2.1); ALBUMIN 3.2 g/dL (3.5-5.0)
--- NOTE | 2018-03-13 09:04 | PN ---
DATE: 03/10/2018 ENDOCRINOLOGY FOLLOWUP NOTE LOCATION: In room 664. SUBJECTIVE: This is a 63-year-old female presenting with anemia from underlying GI bleeding and also has marked incompetent hypothyroidism and started on levothyroxine therapy as given parenterally, very well tolerated as noted. LABORATORY DATA: The latest chemistry showed a BUN of 15, sodium 134, potassium 3.8, chloride 105, CO2 of 24, glucose 86, and creatinine 1.4. Her latest thyroid study, which was done today, showed a TSH of 107.006, actually higher and not surprising considering her marked hypothyroxinemic condition thereof. Her T4 is 0.94 with a free T4 of 1.64. ASSESSMENT AND PLAN: This is a 63-year-old female with clinically and biochemically most likely related to underlying autoimmune thyroiditis and some therapeutic regimen on levothyroxine at 25 mcg daily as given. PLAN OF MANAGEMENT: We will continue the parenteral levothyroxine given initially as 200 mcg IV push as a stat dose on the day of admission and we will continue her levothyroxine given as 100 mcg IV push once daily in the morning as ordered. Because of the marked and the expected marked gastric mucosal edema with increased absorption of oral levothyroxine medication, we will prefer to give the levothyroxine parenterally at this time over the next two or three days as ordered. We will obtain serial thyroid studies and titrate the dose regimen accordingly. If she increases clinically and metabolically over the next three days, then we can switch her over to oral levothyroxine therapy has to be treated. We will follow with you. Corinna Vizcaino MD
[2018-03-13] MEDS ORDERED: Sodium Chloride 0.9% 1,000 ML IV SCH (15:00)
--- NOTE | 2018-03-13 22:44 | CP.PCM.PN ---
Subjective - Date & Time of Evaluation Date of Evaluation: 03/13/18 Time of Evaluation: 18:00 - Subjective Subjective: Has some abdominal pain. Objective - Vital Signs/Intake and Output Vital Signs (last 24 hours): Temp Pulse Resp BP Pulse Ox 97.9 F 102 H 20 115/82 98 03/13/18 16:30 03/13/18 16:30 03/13/18 16:30 03/13/18 16:30 03/13/18 16:30 - Medications Medications: Current Medications Al Hydrox/Mg Hydrox/Simethicone (Maalox 30 Ml) 30 ml PO Q6H PRN PRN Reason: Indigestion / Heartburn Amoxicillin (Amoxil 500 Mg Cap) 1,000 mg PO BID [facility]; Protocol Last Admin: 03/13/18 17:08 Dose: 1,000 mg Clarithromycin (Biaxin Filmtab) 500 mg PO Q12H [facility]; Protocol Last Admin: 03/13/18 21:08 Dose: 500 mg Clonidine HCl (Catapres) 0.1 mg PO Q6H PRN PRN Reason: opioid withdrawal sxs Dicyclomine HCl (Bentyl) 10 mg PO Q6H PRN PRN Reason: gastric cramps Last Admin: 03/13/18 08:35 Dose: 10 mg Famotidine (Pepcid) 20 mg PO DAILY [facility] Last Admin: 03/13/18 10:25 Dose: 20 mg Sodium Chloride (Sodium Chloride 0.9%) 1,000 mls @ 100 mls/hr IV .Q10H [facility] Stop: 03/14/18 01:00 Last Admin: 03/13/18 16:40 Dose: 100 mls/hr Levothyroxine Sodium (Synthroid) 125 mcg PO DAILY@0630 [facility] Last Admin: 03/13/18 06:22 Dose: 125 mcg Methadone HCl (Methadone) 5 mg PO Q24H [facility]; Taper Stop: 03/15/18 08:59 Last Admin: 03/13/18 10:26 Dose: 5 mg Metronidazole (Flagyl) 500 mg PO Q8 [facility]; Protocol Last Admin: 03/13/18 21:08 Dose: 500 mg Mirtazapine (Remeron) 30 mg PO HS [facility] Last Admin: 03/13/18 21:08 Dose: 30 mg Nicotine (Nicoderm Cq) 1 patch TD DAILY [facility] Last Admin: 03/13/18 10:27 Dose: 1 patch Phenytoin Sodium (Dilantin) 100 mg PO TID [facility] Last Admin: 03/13/18 17:08 Dose: 100 mg Sucralfate (Carafate Oral Susp) 1 gm PO Q6H [facility] Last Admin: 03/13/18 19:03 Dose: 1 gm - Labs Labs: 03/13/18 06:27 03/13/18 06:27 PT 10.6 SECONDS (9.7-12.2) 03/08/18 09:42 INR 1.0 03/08/18 09:42 APTT 31 SECONDS (21-34) 03/08/18 09:42 - Head Exam Head Exam: ATRAUMATIC - Eye Exam Eye Exam: Normal appearance - ENT Exam ENT Exam: Mucous Membranes Dry - Respiratory Exam Respiratory Exam: NORMAL BREATHING PATTERN - Cardiovascular Exam Cardiovascular Exam: +S1, +S2 - GI/Abdominal Exam GI & Abdominal Exam: Normal Bowel Sounds Assessment and Plan (1) Anemia Assessment & Plan: anemia of chronic disease anemia of chemotherapy ? anemia of CKD s/p PRBC transfusion Status: Acute (2) Lung cancer Assessment & Plan: outpatient treatment with primary oncologist. Status: Acute
[2018-03-14] MEDS: Sucralfate 1 gm/10 ml Oral Susp UD PO SCH ×3 (00:29→13:38)
[2018-03-14] MEDS: Levothyroxine 125 MCG TAB PO SCH (06:21)
[2018-03-14 07:41] LABS: BASO # 0.1 K/uL (0.0-0.2); EOS # 0.1 K/uL (0.0-0.7); EOS % 1.5 % (0.0-4.0); HEMOGLOBIN 9.2 g/dL (11.0-16.0); LYMPH # 1.1 K/uL (1.0-4.3); LYMPH % 18.8 % (20.0-40.0); MEAN CELL VOLUME 99.6 fL (81.0-99.0); MEAN CORPUSCULAR HEMOGLOBIN 33.3 pg (27.0-31.0); MEAN CORPUSCULAR HGB CONC 33.4 g/dL (33.0-37.0); MEAN PLATELET VOLUME 7.5 fL (7.2-11.7); MONO # 0.6 K/uL (0.0-0.8); MONO % 10.3 % (0.0-10.0); NEUT # 3.8 K/uL (1.8-7.0); NEUT % 68.4 % (50.0-75.0); RBC 2.77 Mil/uL (3.80-5.20); RED CELL DISTRIBUTION WIDTH 21.1 % (11.5-14.5); WHITE BLOOD COUNT 5.6 K/uL (4.8-10.8)
[2018-03-14 07:59] LABS: ALB/GLOB RATIO 1.2 (1.0-2.1); ALBUMIN 3.3 g/dL (3.5-5.0); CALCIUM 9.6 mg/dl (8.6-10.4)
--- NOTE | 2018-03-14 09:57 | CP.PCM.DIS ---
Provider - Provider Date of Admission: 03/08/18 05:44 Attending physician: Bear De Souza MD Time Spent in preparation of Discharge (in minutes): 45 Diagnosis - Discharge Diagnosis (1) Abdominal pain Status: Chronic (2) Duodenal ulcer Status: Acute (3) History of lung cancer Status: Chronic (4) Severe hypothyroidism Status: Resolved Hospital Course - Lab Results Lab Results: Most Recent Lab Values WBC 5.6 K/uL (4.8-10.8) 03/14/18 07:35 RBC 2.77 Mil/uL (3.80-5.20) L 03/14/18 07:35 Hgb 9.2 g/dL (11.0-16.0) L 03/14/18 07:35 Hct 27.6 % (34.0-47.0) L 03/14/18 07:35 MCV 99.6 fL (81.0-99.0) H 03/14/18 07:35 MCH 33.3 pg (27.0-31.0) H 03/14/18 07:35 MCHC 33.4 g/dL (33.0-37.0) 03/14/18 07:35 RDW 21.1 % (11.5-14.5) H 03/14/18 07:35 Plt Count 230 K/uL (130-400) 03/14/18 07:35 MPV 7.5 fL (7.2-11.7) 03/14/18 07:35 Neut % (Auto) 68.4 % (50.0-75.0) 03/14/18 07:35 Lymph % (Auto) 18.8 % (20.0-40.0) L 03/14/18 07:35 Murray % (Auto) 10.3 % (0.0-10.0) H 03/14/18 07:35 Eos % (Auto) 1.5 % (0.0-4.0) 03/14/18 07:35 Baso % (Auto) 1.0 % (0.0-2.0) 03/14/18 07:35 Neut # (Auto) 3.8 K/uL (1.8-7.0) 03/14/18 07:35 Lymph # (Auto) 1.1 K/uL (1.0-4.3) 03/14/18 07:35 Murray # (Auto) 0.6 K/uL (0.0-0.8) 03/14/18 07:35 Eos # (Auto) 0.1 K/uL (0.0-0.7) 03/14/18 07:35 Baso # (Auto) 0.1 K/uL (0.0-0.2) 03/14/18 07:35 Retic Count 3.3 % (0.5-1.5) H 03/08/18 09:42 PT 10.6 SECONDS (9.7-12.2) 03/08/18 09:42 INR 1.0 03/08/18 09:42 APTT 31 SECONDS (21-34) 03/08/18 09:42 Sodium 139 mmol/L (132-148) 03/14/18 07:35 Potassium 3.9 mmol/L (3.6-5.2) 03/14/18 07:35 Chloride 108 mmol/L (98-107) H 03/14/18 07:35 Carbon Dioxide 25 mmol/L (22-30) 03/14/18 07:35 Anion Gap 10 (10-20) 03/14/18 07:35 BUN 24 mg/dL (7-17) H 03/14/18 07:35 Creatinine 1.5 mg/dL (0.7-1.2) H 03/14/18 07:35 Est GFR ( Amer) 43 03/14/18 07:35 Est GFR (Non-Af Amer) 35 03/14/18 07:35 Random Glucose 92 mg/dL (65-105) 03/14/18 07:35 Calcium 9.6 mg/dl (8.6-10.4) 03/14/18 07:35 Magnesium 2.1 mg/dL (1.6-2.3) 03/12/18 09:21 Iron 102 ug/dL (37-170) 03/08/18 09:42 TIBC 216 ug/dL (250-450) L 03/08/18 09:42 % Saturation 47 (20-55) 03/08/18 09:42 Transferrin 163.17 mg/dL (206-381) L 03/08/18 09:42 Ferritin 987.0 ng/mL 03/08/18 09:42 Total Bilirubin 0.4 mg/dL (0.2-1.3) 03/14/18 07:35 AST 112 U/L (14-36) H D 03/14/18 07:35 ALT 74 U/L (9-52) H D 03/14/18 07:35 Alkaline Phosphatase 59 U/L (38-126) 03/14/18 07:35 Total Protein 6.0 g/dL (6.3-8.3) L 03/14/18 07:35 Albumin 3.3 g/dL (3.5-5.0) L 03/14/18 07:35 Globulin 2.7 gm/dL (2.2-3.9) 03/14/18 07:35 Albumin/Globulin Ratio 1.2 (1.0-2.1) 03/14/18 07:35 Lipase 119 U/L (23-300) 03/08/18 03:37 Vitamin B12 531 pg/mL (239-931) 03/08/18 09:42 Folate 8.2 ng/mL 03/08/18 09:42 Free T4 1.64 ng/dL (0.78-2.19) 03/10/18 07:28 Thyroxine (T4) 6.43 ug/dL (5.5-11.0) 03/12/18 09:21 Free T3 pg/mL 0.94 pg/mL (2.77-5.27) L 03/10/18 07:28 TSH 3rd Generation 80.10 mIU/L (0.46-4.68) H 03/12/18 09:21 Urine Color Straw (YELLOW) 03/08/18 08:56 Urine Clarity Clear (Clear) 03/08/18 08:56 Urine pH 6.0 (5.0-8.0) 03/08/18 08:56 Ur Specific Mccormick 1.028 (1.003-1.030) 03/08/18 08:56 Urine Protein Negative mg/dL (NEGATIVE) 03/08/18 08:56 Urine Glucose (UA) Normal mg/dL (Normal) 03/08/18 08:56 Urine Ketones Negative mg/dL (NEGATIVE) 03/08/18 08:56 Urine Blood 3+ (NEGATIVE) H 03/08/18 08:56 Urine Nitrate Negative (NEGATIVE) 03/08/18 08:56 Urine Bilirubin Negative (NEGATIVE) 03/08/18 08:56 Urine Urobilinogen Normal mg/dL (0.2-1.0) 03/08/18 08:56 Ur Leukocyte Esterase Neg Timur/uL (Negative) 03/08/18 08:56 Urine WBC (Auto) < 1 /hpf (0-5) 03/08/18 08:56 Urine RBC (Auto) 1 /hpf (0-3) 03/08/18 08:56 Ur Squamous Epith Cells < 1 /hpf (0-5) 03/08/18 08:56 Stool Occult Blood Positive (NEGATIVE) H 03/08/18 04:19 Urine Opiates Screen Positive (NEGATIVE) H 03/08/18 08:56 Urine Methadone Screen Positive (NEGATIVE) H 03/08/18 08:56 Ur Barbiturates Screen Negative (NEGATIVE) 03/08/18 08:56 Phenytoin < 3.0 ug/mL (10-20) L 03/08/18 09:42 Ur Phencyclidine Scrn Negative (NEGATIVE) 03/08/18 08:56 Ur Amphetamines Screen Negative (NEGATIVE) 03/08/18 08:56 U Benzodiazepines Scrn Negative (NEGATIVE) 03/08/18 08:56 U Oth Cocaine Metabols Negative (NEGATIVE) 03/08/18 08:56 U Cannabinoids Screen Negative (NEGATIVE) 03/08/18 08:56 Alcohol, Quantitative < 10 mg/dl (0-10) 03/08/18 09:42 Thyroperoxidase Ab 163 IU/mL (<9) H 03/11/18 08:44 Thyroglobulin Antibody <1 IU/mL (< OR = 1) 03/11/18 08:44 Hepatitis A IgM Ab Negative (NEGATIVE) 03/09/18 09:10 Hep Bs Antigen Negative (NEGATIVE) 03/09/18 09:10 Hep B Core IgM Ab Negative (NEGATIVE) 03/09/18 09:10 Hepatitis C Antibody Negative (NEGATIVE) 03/09/18 09:10 Blood Type O POSITIVE 03/08/18 04:31 Antibody Screen Negative 03/08/18 04:31 - Hospital Course Hospital Course: 63 F w/ PMHx of Lung ca (stage 2, receiving chemo & radiation @ [facility] w/ Dr. Alex De Souza), seizures (Dilantin 100 TID), ? hypothyroidism, presents to ED w/ 1 month of worsening abdominal pain. Patient states constant abdominal pain w/ black tarry watery stools for the past week, with pain alleviated with food. Patient has tried tylenol OTC and intermittent iboprofen use with no relief of pain. 3 episode of non bloody, non bilious vomiting yesterday 03/07. Patient also admits to falls for the past month because her legs feel heavy along with numbness and tingling sensation. Patient denies LOC, head trauma and is able to get up immediately after fall. Patient denies chest pain, SOB, headaches, vision changes, dysuria, hematuria. Patient has irregular use of Dilantin & ~30 lb weight loss over the past several months. Patient primarily receives treatment at [facility]. Medical release authorization has bee obtained by patient. Awaiting results. PMD: None, Heme/Onc Dr. Alex De Souza @ [facility] PMHx: Lung ca (stage 2, receiving chemo & radiation @ [facility] w/ Dr. Alex De Souza), seizures (Dilantin 100 TID), ? hypothyroidism Meds: Dilantin 100 mg TID, unsure of thyroid medication, uses [facility] pharmacy Allergies: NKDA PSHx: unknown abdominal surgery involving stomach/colon FHx: Dad - HTN, mother - unknown SHX: 2 cigerattes/day 20+ years, heroin 6-8 bags/ day (intranasal) Full Code Emergency contact daughter Dariela: [phone]; may discuss medial status with daughter except heroin use HOSPITAL COURSE Duodenal Ulcer * Patient is on Carafate 1gm PO Q6H * H Pylori positive (start 03/11/18) * Protonix 40mg PO BID * Flagyl 500mg PO BID * Amoxicillin 100mg PO QID * Clarithromycin 500mg PO BID * s/p 2 unit of PRBC * ulcer nonbleeding * protonix 40mg po BID Heroin Abuse * Methadone Tapered Severe Hypothyroidism * Endocrinology on case help appreciated * Levothyroxine 100mcg IVP today * f/u endocrinology regarding when to switch to PO * TSH: 87.20-->107.00-->99.9 * Thyroperoxidase AB: 164 (elevated) * Thyroglobulin <1 Imaging and Diagnostics * Endoscopy: normal esophagus, 1cm hiatal hernia, gastritis, biopsied. one non- bleeding duodenal ulcer with a clean ulcer base. Follow-up pathology result. * Pathology: moderate chronic active gastritis. H. Pylori positive * Thyroid US: unremarkable thryoid sonogram Discharge Plan Pt is to be discharged home with the following instructions Please establish care with Alcoholics Anonymous call [phone] to find one best for you Follow up with Dr Gerardo BEST in 2 months call [phone] to schedule a repeat upper Endoscopy Follow up in the [facility] gound floor [address] call [phone] Alex eD Souza Heme/Onc within one week Please call Narcotics Anonymous [phone] for addiction help Please call [employer] live [phone] for support Please establish follow up care with the methadone clinic call [phone] for more info Take the following medications as prescribed Pantoprazole 40mg 1 tab at 8am and 8pm #24 Flagyl 500mg 1 tab at 8am and 8pm #24 Amoxicillin 1000mg 1 tab at 8am and 8pm #24 Clarithromycin 500mg 1 tab 8am and 8pm #24 Levothyroxine 125 PO at 630am #30 Remeron 30mg 1 tab at 8pm #30 Phenytoin ER 100mg 1 tab at 8am 2pm an 8pm #90 Tramadol 50mg 1 tab every 12hrs as needed for sever pain #30 Colace 100mg 1 tab at 8am and 8pm # 60 THIS IS A SUMMARY PLEASE REFER TO [employer] FOR COMPLETE RECORDS Discharge Exam - Head Exam Head Exam: ATRAUMATIC Discharge Plan - Discharge Medications Prescriptions: Amoxicillin [Amoxil 500 mg Cap] 1,000 mg PO BID #24 cap Clarithromycin [Biaxin Filmtab] 500 mg PO Q12H #24 tab Docusate Sodium [Colace] 100 mg PO BID #60 capsule Levothyroxine [Synthroid] 125 mcg PO DAILY@0630 #30 tab metroNIDAZOLE [Flagyl] 500 mg PO Q8 #24 tab Mirtazapine [Remeron] 30 mg PO HS #30 tab Pantoprazole [Protonix EC Tab] 40 mg PO DAILY #24 ect Phenytoin, Extended [Dilantin] 100 mg PO TID #90 cer traMADol [Ultram] 50 mg PO Q12 #30 tab - Follow Up Plan Condition: FAIR Disposition: HOME/ ROUTINE Instructions: Acute Abdominal Pain (DC), Acute Abdominal Pain (GEN) Additional Instructions: Pt is to be discharged home with the following instructions Please establish care with Alcoholics Anonymous call [phone] to find one best for you Follow up with Dr Carrillo GI in 2 months call [phone] to schedule a repeat upper Endoscopy Follow up in the [facility] gound floor [address] call [phone] Alex De Souza Heme/Onc within one week Please call Narcotics Anonymous [phone] for addiction help Please call [employer] live [phone] for support Please establish follow up care with the methadone clinic call [phone] for more info Take the following medications as prescribed Pantoprazole 40mg 1 tab at 8am and 8pm #24 Flagyl 500mg 1 tab at 8am and 8pm #24 Amoxicillin 1000mg 1 tab at 8am and 8pm #24 Clarithromycin 500mg 1 tab 8am and 8pm #24 Levothyroxine 125 PO at 630am #30 Remeron 30mg 1 tab at 8pm #30 Phenytoin ER 100mg 1 tab at 8am 2pm an 8pm #90 Tramadol 50mg 1 tab every 12hrs as needed for sever pain #30 Colace 100mg 1 tab at 8am and 8pm # 60 Referrals: Delbert Carrillo MD [Staff Provider] - Alex De Souza MD [Non-Staff] - Maira Glover MD [Staff Provider] -
[2018-03-14 16:27] VITALS: BP 142/93; PULSE 94; TEMP 98.6; O2SAT 100
== END 2018-03-14 16:34 | disposition home or self-care (01) | DRG 241 ==
LOC: C.ER 02:07 → C.9E 05:44 → C.6T 20:11
PROVIDERS: ADMIT Family Medicine; ATTEND Family Medicine
PROC: 0DB68ZX Excision of Stomach, Via Natural or Artificial Opening Endoscopic, Diagnostic (ICD-10-PCS; principal; 2018-03-08 12:10)
DX: K29.50 Unspecified chronic gastritis without bleeding (principal); K26.4 Chronic or unspecified duodenal ulcer with hemorrhage; K70.9 Alcoholic liver disease, unspecified; K44.9 Diaphragmatic hernia without obstruction or gangrene; K59.00 Constipation, unspecified; B96.81 Helicobacter pylori [H. pylori] as the cause of diseases classified elsewhere; D63.1 Anemia in chronic kidney disease; F11.23 Opioid dependence with withdrawal; F17.200 Nicotine dependence, unspecified, uncomplicated; F32.1 Major depressive disorder, single episode, moderate; G40.909 Epilepsy, unspecified, not intractable, without status epilepticus; I12.9 Hypertensive chronic kidney disease with stage 1 through stage 4 chronic kidney disease, or unspecified chronic kidney disease; F10.20 Alcohol dependence, uncomplicated; N18.9 Chronic kidney disease, unspecified; Z85.118 Personal history of other malignant neoplasm of bronchus and lung; Z68.42 Body mass index [BMI] 45.0-49.9, adult

== ENCOUNTER 2018-04-16 08:46 | Observation (INO) | payer MEDICAID, OTHER ==
[2018-04-16 09:50] LABS: BASO % 0.2 % (0.0-2.0); EOS % 0.1 % (0.0-4.0); LYMPH # 0.4 K/uL (1.0-4.3); LYMPH % 2.5 % (20.0-40.0); MEAN CORPUSCULAR HEMOGLOBIN 30.3 pg (27.0-31.0); MEAN CORPUSCULAR HGB CONC 32.9 g/dL (33.0-37.0); MEAN PLATELET VOLUME 7.9 fL (7.2-11.7); MONO # 0.4 K/uL (0.0-0.8); MONO % 2.7 % (0.0-10.0); NEUT # 15.1 K/uL (1.8-7.0); NEUT % 94.5 % (50.0-75.0); PLATELET COUNT 231 K/uL (130-400); RBC 4.55 Mil/uL (3.80-5.20); RED CELL DISTRIBUTION WIDTH 18.7 % (11.5-14.5)
[2018-04-16 09:56] LABS: HEMOGLOBIN 13.8 g/dL (11.0-16.0)
[2018-04-16 10:07] LABS: SQUAMOUS EPITHIAL 12 /hpf (0-5); URINE BACTERIA RARE (<OCC); URINE BILIRUBIN NEGATIVE (NEGATIVE); URINE BLOOD 1+ (NEGATIVE); URINE CALCIUM OXALATE CRYSTALS RARE /hpf (<OCC); URINE CLARITY Hazy (Clear); URINE COLOR Amber (YELLOW); URINE GLUCOSE (UA) NORMAL (Normal); URINE LEUKOCYTE ESTERASE TRACE Leu/uL (Negative); URINE PROTEIN 2+ mg/dL (NEGATIVE); URINE UROBILINOGEN NORMAL mg/dL (0.2-1.0)
--- NOTE | 2018-04-16 10:08 | C.PDOC ---
History Of Present Illness 63 year old female with a history of heroin use and lung cancer presents to the ED for evaluation of mild diffuse abdominal pain associated with nausea for 2 days. The patient reports using 10 bags of heroin a day which she sniffs, last use was 2 days ago. She notes current symptoms are typical of heroin withdrawal. States she is not currently on chemotherapy. Denies vomiting, diarrhea, and any other associated symptoms. Time Seen by Provider: 04/16/18 08:57 Chief Complaint (Nursing): Abdominal Pain History Per: Patient History/Exam Limitations: no limitations Onset/Duration Of Symptoms: Days (x2) Current Symptoms Are (Timing): Still Present Recent travel outside of the [place]: No Past Medical History Reviewed: Historical Data, Nursing Documentation, Vital Signs Vital Signs: Last Vital Signs Temp 97.9 F 04/16/18 08:53 Pulse 94 H 04/16/18 08:53 Resp 20 04/16/18 08:53 BP 109/77 04/16/18 08:53 Pulse Ox 97 04/16/18 08:53 - Medical History PMH: Fractures (left hip), HTN, Hypothyroidism, Seizures - [facility] Procedures EXCISION OF STOMACH, ENDO, DIAGN (03/08/18) Family History: States: Unknown Family Hx - Social History Hx Alcohol Use: Yes Hx Substance Use: Yes Review Of Systems Except As Marked, All Systems Reviewed And Found Negative. Gastrointestinal: Positive for: Nausea, Abdominal Pain (mild. diffuse. ). Negative for: Vomiting, Diarrhea Physical Exam - Physical Exam Appears: Other (thin.) Skin: Warm, Dry Head: Atraumatic, Normacephalic Eye(s): bilateral: Normal Inspection Oral Mucosa: Moist Neck: Normal ROM, Supple Chest: Symmetrical Cardiovascular: Rhythm Regular, No Murmur Respiratory: Normal Breath Sounds, No Rales, No Rhonchi, No Wheezing Gastrointestinal/Abdominal: Normal Exam, Soft, No Tenderness Extremity: Normal ROM (x4) Neurological/Psych: Oriented x3, Normal Speech, Normal Cognition ED Course And Treatment - Laboratory Results Result Diagrams: 04/16/18 14:16 04/16/18 09:34 O2 Sat by Pulse Oximetry: 97 (RA) Pulse Ox Interpretation: Normal Medical Decision Making Medical Decision Making: Plan: -Blood sent. -Drug screen -Urinalysis -Zofran -Pepcid Disposition - Disposition Disposition: HOSPITALIZED Disposition Time: 14:40 Condition: STABLE - Clinical Impression Clinical Impression: Drug dependence - Scribe Statement The provider has reviewed the documentation as recorded by the Scribe (Alicia Bingham) Provider Attestation: All medical record entries made by the Scribe were at my direction and personally dictated by me. I have reviewed the chart and agree that the record accurately reflects my personal performance of the history, physical exam, medical decision making, and the department course for this patient. I have also personally directed, reviewed, and agree with the discharge instructions and disposition.
[2018-04-16 10:11] LABS: ALB/GLOB RATIO 1.2 (1.0-2.1); ALBUMIN 4.3 g/dL (3.5-5.0); ALT/SGPT 119 U/L (9-52); AST/SGOT 126 U/L (14-36); BLOOD UREA NITROGEN 22 mg/dL (7-17); GFR NON-AFRICAN AMERICAN 33
[2018-04-16 10:16] LABS: BARBITURATES, UR NEGATIVE (NEGATIVE); BENZODIAZEPINES, UR NEGATIVE (NEGATIVE); PHENCYCLIDINE, UR NEGATIVE (NEGATIVE)
[2018-04-16 10:18] LABS: OPIATES, UR POSITIVE (NEGATIVE)
[2018-04-16 10:35] LABS: LIPASE 53 U/L (23-300)
[2018-04-16 10:52] LABS: BANDS 5 % (0-2); LYMPHOCYTE 1 % (20-40); MONOCYTE 2 % (0-10); NEUTROPHIL 92 % (50-75); PLATELET ESTIMATE NORMAL (NORMAL); TOTAL CELLS COUNTED 100; TOXIC GRANULATION PRESENT
[2018-04-16 10:53] LABS: POLYCHROMIC SLIGHT
[2018-04-16 10:54] LABS: ANISOCYTOSIS SLIGHT
--- NOTE | 2018-04-16 11:36 | RAD ---
Date of service: 04/16/2018 HISTORY: r/o infiltrate COMPARISON: 03/08/2018 FINDINGS: LUNGS: The lungs are hyperinflated and there is peribronchial thickening with chronic changes in both lungs. No focal consolidation. PLEURA: No pleural effusions or pneumothorax. CARDIOVASCULAR: The heart is normal in size. No aortic atherosclerotic calcification present. OSSEOUS STRUCTURES: Within normal limits for the patient's age. VISUALIZED UPPER ABDOMEN: Normal. OTHER FINDINGS: Nodular densities overlying the lower lobes most compatible with nipple shadows. IMPRESSION: No active pulmonary disease. COPD.
--- NOTE | 2018-04-16 11:49 | CT ---
Date of service: 04/16/2018 PROCEDURE: CT Abdomen and Pelvis without intravenous contrast HISTORY: diffuse abdominal pain COMPARISON: 03/08/2018. TECHNIQUE: CT scan of the abdomen and pelvis was performed without administration of intravenous contrast. Oral contrast was not administered. Coronal and sagittal reformatted images were obtained. . Radiation dose: Total exam DLP = 178.42 mGy-cm. This CT exam was performed using one or more of the following dose reduction techniques: Automated exposure control, adjustment of the mA and/or kV according to patient size, and/or use of iterative reconstruction technique. FINDINGS: LOWER THORAX: There is linear atelectasis/scarring in the lingula, right posterior and lateral lung base and left anterior lung base. There is also mild bronchial thickening. LIVER: Normal in size. No intrahepatic ductal dilatation. GALLBLADDER AND BILE DUCTS: No calcified gallstones. No biliary dilatation PANCREAS: Normal in size. No ductal dilatation. There is redemonstration of stable 8 mm round low-density lesion in the head of the pancreas. SPLEEN: Normal in size. ADRENALS: The right adrenal gland is normal in size. There is mild thickening of the left adrenal gland without discrete nodule. KIDNEYS AND URETERS: Normal in size without nephrolithiasis. No hydronephrosis. VASCULATURE: No aortic aneurysm. No aortic atherosclerotic calcification or mural plaque present. BOWEL: Evaluation of the bowel is limited in the absence of oral contrast. Allowing for this, there is redemonstration of circumferential mural thickening in the stomach. Again seen are postsurgical changes in the ascending colon. There is mild dilatation of fluid-filled right hemicolon mildly dilated fluid-filled distal small bowel loops. There is also fluid in the mid transverse colon. No evidence of bowel wall thickening or obstruction. APPENDIX: Not visualized. PERITONEUM: No free fluid. No free air. LYMPH NODES: No enlarged lymph nodes. BLADDER: Well distended and grossly normal in appearance. REPRODUCTIVE: The uterus is normal in size BONES: No acute fracture. There is redemonstration of a round sclerotic focus in the right sacrum. There is diffuse bone demineralization and multilevel degenerative changes in the spine. Status post open reduction and internal fixation of left proximal femoral fracture OTHER FINDINGS: None. IMPRESSION: No acute abdominal or pelvic abnormality. Stable 9 mm cystic lesion in the head of the pancreas. Correlation with CT scan or MRI of the abdomen without and with intravenous contrast with pancreatic protocol is recommended for further evaluation. Postsurgical changes in the ascending colon and fluid-filled dilated ascending colon and distal small bowel loops which may represent nonspecific enterocolitis. No evidence of bowel obstruction. Persistent circumferential mural thickening of the stomach which could be related to underdistention however nonspecific gastritis is also a consideration. If clinically indicated, correlation with EGD may be performed.
--- NOTE | 2018-04-16 13:29 | US ---
Date of service: 04/16/2018 HISTORY: elevated LFT's COMPARISON: None. TECHNIQUE: Sonographic evaluation of the abdomen. FINDINGS: LIVER: Measures 17.5 cm. Normal echogenicity of the liver parenchyma. No mass. No intrahepatic bile duct dilatation. GALLBLADDER: There are no gallstones, wall thickening or pericholecystic fluid. The sonographic Mazariegos's sign is negative. COMMON BILE DUCT: Measures 5.0 mm. No stones. No dilatation. PANCREAS: There is a 10 mm cyst in the head of the pancreas.. No ductal dilatation. RIGHT KIDNEY: Measures 8.9cm. There is diffuse increased echogenicity. No calculus, mass, or hydronephrosis. LEFT KIDNEY: Measures 9.1cm. There is diffuse increased echogenicity. No calculus, mass, or hydronephrosis. SPLEEN: Normal in size and contour. No mass. AORTA: No aneurysmal dilatation. IVC: Unremarkable. OTHER FINDINGS: None. IMPRESSION: 10 mm cyst in the head of the pancreas. Mild hepatomegaly. Diffused increased cortical echogenicity in the kidneys consistent with medical renal disease.
[2018-04-16] MEDS ORDERED: Sodium Chloride 0.9% 1,000 ML IV ONE (13:52)
[2018-04-16] MEDS ORDERED: Sodium Chloride 0.9% 1,000 ML ONE (13:57)
[2018-04-16 14:19] LABS: BASO # 0.1 K/uL (0.0-0.2); BASO % 0.5 % (0.0-2.0); EOS % 0.2 % (0.0-4.0); LYMPH # 0.6 K/uL (1.0-4.3); LYMPH % 4.1 % (20.0-40.0); MEAN CELL VOLUME 91.9 fL (81.0-99.0); MEAN CORPUSCULAR HEMOGLOBIN 30.1 pg (27.0-31.0); MEAN CORPUSCULAR HGB CONC 32.8 g/dL (33.0-37.0); MEAN PLATELET VOLUME 7.4 fL (7.2-11.7); MONO # 0.6 K/uL (0.0-0.8); MONO % 3.7 % (0.0-10.0); NEUT # 14.2 K/uL (1.8-7.0); NEUT % 91.5 % (50.0-75.0); PLATELET COUNT 215 K/uL (130-400); RBC 3.98 Mil/uL (3.80-5.20); RED CELL DISTRIBUTION WIDTH 18.1 % (11.5-14.5); WHITE BLOOD COUNT 15.5 K/uL (4.8-10.8)
[2018-04-16 14:35] LABS: BANDS 8 % (0-2); EOSINOPHIL 1 % (0-4); LYMPHOCYTE 5 % (20-40); MONOCYTE 4 % (0-10); NEUTROPHIL 82 % (50-75); PLATELET ESTIMATE NORMAL (NORMAL); TOTAL CELLS COUNTED 100
[2018-04-16 14:36] LABS: ANISOCYTOSIS MODERATE; LARGE PLATELETS PRESENT; POLYCHROMIC SLIGHT
[2018-04-16] MEDS ORDERED: Ciprofloxacin 400mg/200ml D5W 400 MG/200 ML BAG IVPB STA (14:38)
[2018-04-16] MEDS ORDERED: metroNIDAZOLE IV 500 mg/100 ml 500 MG/100 ML BAG IVPB STA (14:38)
[2018-04-16] MEDS ORDERED: metroNIDAZOLE IV 500 mg/100 ml 500 MG/100 ML BAG ONE (14:59)
--- NOTE | 2018-04-16 15:50 | CP.PCM.HP ---
<Trever Caba - Last Filed: 04/16/18 17:09> History of Present Illness - History of Present Illness History of Present Illness: PGY2 Medicine H&P for Dr. Bear De Souza Ms. Angelo is a 63 year old female with a past medical history of Lung CA (stage 2, follows up with Dr. Alex De Souza), seizures and hypothyroidism presents to ED w/ 2 history of abdominal pain. Patient was re cently admitted to the hospital in February 2018 and was diagnosed with H. Pylori. Patient states that she completed her antibiotic regiment (Flagyl, Amoxicillin, Clarithromycin and Pantoprazole). 2 days ago she started experiencing a similar abdominal pain that brought her to the hospital a month a go. She also reports that he symptoms are similar to heroin withdrawal. She has been using both methadone (buying on street, not a clinic) and heroin (approximately 10 bags per day) daily since she has left the hospital. She reports only snorting heroin and never injecting. Her abdominal pain is vague and diffuse. She has experienced intermittent nausea and vomited twice. Denies blood in vomit. She is has had multiple episodes of diarrhea but is unable to quantify. Stool is described as brown, denying blood or dark/tarry stools. She also has started coughing for the past two days. The cough produces yellow mucous phlegm. Denies fevers, chills, chest pain, shortness of breath, urinary symptoms, headaches, vision changes, runny nose, sore throat, lightheadedness, dizzines, numbness or tingling. PMD: None, Heme/Onc Dr. Alex De Souza @ [facility] PMHx: Lung ca (stage 2, receiving chemo & radiation @ [facility] w/ Dr. Alex De Souza), seizures (Dilantin 100 TID), hypothyroidism PSH: unknown abdominal surgery involving stomach/colon Social: 2 cigerattes/day 20+ years, snorts heroin 10 bags/day FH: Dad - HTN, mother - unknown Meds: Dilantin 100 mg TID, unsure of thyroid medication, uses [facility] pharmacy Allergies: NKDA Full Code Emergency contact daughter Dariela: [phone]; may discuss medial status with daughter except heroin use Prescriptions from discharge on 03/14/18, patient has not followed up a PMD: * Pantoprazole 40mg 1 tab at 8am and 8pm #24 * Flagyl 500mg 1 tab at 8am and 8pm #24 * Amoxicillin 1000mg 1 tab at 8am and 8pm #24 * Clarithromycin 500mg 1 tab 8am and 8pm #24 * Levothyroxine 125 PO at 630am #30 * Remeron 30mg 1 tab at 8pm #30 * Phenytoin ER 100mg 1 tab at 8am 2pm an 8pm #90 * Tramadol 50mg 1 tab every 12hrs as needed for sever pain #30 * Colace 100mg 1 tab at 8am and 8pm # 60 Present on Admission - Present on Admission Any Indicators Present on Admission: No Review of Systems - Review of Systems All systems: reviewed and no additional remarkable complaints except - Constitutional Constitutional: As Per HPI - EENT Eyes: As Per HPI Ears: As Per HPI Nose/Mouth/Throat: As Per HPI - Cardiovascular Cardiovascular: As Per HPI - Respiratory Respiratory: As Per HPI - Gastrointestinal Gastrointestinal: As Per HPI - Genitourinary Genitourinary: As Per HPI - Musculoskeletal Musculoskeletal: As Per HPI - Integumentary Integumentary: As Per HPI - Neurological Neurological: As Per HPI - Psychiatric Psychiatric: As Per HPI - Endocrine Endocrine: As Per HPI - Hematologic/Lymphatic Hematologic: As Per HPI Past Patient History - Past Social History Smoking Status: Light Smoker < 10 Cigarettes Daily - CARDIAC Hx Hypertension: Yes - NEUROLOGICAL Hx Seizures: Yes - ENDOCRINE/METABOLIC Hx Hypothyroidism: Yes - HEMATOLOGICAL/ONCOLOGICAL Hx Blood Disorders: Yes Hx Cancer: Yes (left lung) - MUSCULOSKELETAL/RHEUMATOLOGICAL Hx Fractures: Yes (left hip) - PSYCHIATRIC Hx Substance Use: Yes - SURGICAL HISTORY Hx Surgeries: Yes Hx Orthopedic Surgery: Yes (left hip) - ANESTHESIA Hx Anesthesia: Yes Hx Anesthesia Reactions: No Meds Allergies/Adverse Reactions: Allergies Allergy/AdvReac Type Severity Reaction Status Date / Time No Known Allergies Allergy Verified 04/16/18 08:53 Physical Exam - Constitutional Appears: Non-toxic, No Acute Distress, Older Than Stated Age - Head Exam Head Exam: ATRAUMATIC, NORMOCEPHALIC - Eye Exam Eye Exam: EOMI, Normal appearance, PERRL - ENT Exam ENT Exam: Mucous Membranes Moist - Neck Exam Neck exam: Negative for: Lymphadenopathy, Tenderness - Respiratory Exam Respiratory Exam: Clear to Auscultation Bilateral, NORMAL BREATHING PATTERN. absent: Accessory Muscle Use, Rales, Rhonchi, Wheezes, Respiratory Distress - Cardiovascular Exam Cardiovascular Exam: REGULAR RHYTHM, +S1, +S2 - GI/Abdominal Exam GI & Abdominal Exam: Normal Bowel Sounds, Soft. absent: Distended, Firm, Guarding, Rigid, Tenderness - Extremities Exam Extremities exam: Negative for: calf tenderness, pedal edema - Neurological Exam Neurological exam: Alert, CN II-XII Intact (grossly intact), Oriented x3 - Psychiatric Exam Psychiatric exam: Normal Affect, Normal Mood - Skin Skin Exam: Dry, Warm Results - Vital Signs Recent Vital Signs: Last Vital Signs Temp 98.4 F 04/16/18 13:34 Pulse 88 04/16/18 13:34 Resp 18 04/16/18 13:34 BP 100/73 04/16/18 13:34 Pulse Ox 97 04/16/18 13:34 - Labs Result Diagrams: 04/16/18 14:16 04/16/18 09:34 Labs: Laboratory Results - last 24 hr 04/16/18 04/16/18 04/16/18 09:34 09:34 09:34 WBC 16.0 H D RBC 4.55 Hgb 13.8 D Hct 41.9 MCV 92.0 D MCH 30.3 MCHC 32.9 L RDW 18.7 H Plt Count 231 MPV 7.9 Neut % (Auto) 94.5 H Lymph % (Auto) 2.5 L Carson % (Auto) 2.7 Eos % (Auto) 0.1 Baso % (Auto) 0.2 Neut # (Auto) 15.1 H Lymph # (Auto) 0.4 L Carson # (Auto) 0.4 Eos # (Auto) 0.0 Baso # (Auto) 0.0 Neutrophils % (Manual) 92 H Band Neutrophils % 5 H Lymphocytes % (Manual) 1 L Monocytes % (Manual) 2 Eosinophils % (Manual) Toxic Granulation Present Platelet Estimate Normal Large Platelets Polychromasia Slight Anisocytosis (manual) Slight Sodium 137 Potassium 4.2 Chloride 107 Carbon Dioxide 19 L Anion Gap 15 BUN 22 H Creatinine 1.6 H Est GFR ( Amer) 40 Est GFR (Non-Af Amer) 33 Random Glucose 106 H Calcium 9.0 Phosphorus 3.9 Magnesium 2.0 Total Bilirubin 0.5 AST 126 H ALT 119 H D Alkaline Phosphatase 177 H D Total Protein 8.0 Albumin 4.3 Globulin 3.7 Albumin/Globulin Ratio 1.2 Lipase 53 Urine Color Ivy Urine Clarity Hazy Urine pH 5.[address] 1.020 Urine Protein 2+ H Urine Glucose (UA) Normal Urine Ketones Trace Urine Blood 1+ H Urine Nitrate Negative Urine Bilirubin Negative Urine Urobilinogen Normal Ur Leukocyte Esterase Trace Urine WBC (Auto) 14 H Urine RBC (Auto) 1 Ur Squamous Epith Cells 12 H Calcium Oxalate Crystal Rare Urine Bacteria Rare Hyaline Casts 3-5 H Urine Yeast (Budding) Occ H Urine Opiates Screen Urine Methadone Screen Ur Barbiturates Screen Ur Phencyclidine Scrn Ur Amphetamines Screen U Benzodiazepines Scrn U Oth Cocaine Metabols U Cannabinoids Screen Alcohol, Quantitative < 10 04/16/18 04/16/18 09:34 14:16 WBC 15.5 H RBC 3.98 Hgb 12.0 Hct 36.5 MCV 91.9 MCH 30.1 MCHC 32.8 L RDW 18.1 H Plt Count 215 MPV 7.4 Neut % (Auto) 91.5 H Lymph % (Auto) 4.1 L Carson % (Auto) 3.7 Eos % (Auto) 0.2 Baso % (Auto) 0.5 Neut # (Auto) 14.2 H Lymph # (Auto) 0.6 L Carson # (Auto) 0.6 Eos # (Auto) 0.0 Baso # (Auto) 0.1 Neutrophils % (Manual) 82 H Band Neutrophils % 8 H Lymphocytes % (Manual) 5 L Monocytes % (Manual) 4 Eosinophils % (Manual) 1 Toxic Granulation Platelet Estimate Normal Large Platelets Present Polychromasia Slight Anisocytosis (manual) Moderate Sodium Potassium Chloride Carbon Dioxide Anion Gap BUN Creatinine Est GFR ( Amer) Est GFR (Non-Af Amer) Random Glucose Calcium Phosphorus Magnesium Total Bilirubin AST ALT Alkaline Phosphatase Total Protein Albumin Globulin Albumin/Globulin Ratio Lipase Urine Color Urine Clarity Urine pH Ur Specific Circle Urine Protein Urine Glucose (UA) Urine Ketones Urine Blood Urine Nitrate Urine Bilirubin Urine Urobilinogen Ur Leukocyte Esterase Urine WBC (Auto) Urine RBC (Auto) Ur Squamous Epith Cells Calcium Oxalate Crystal Urine Bacteria Hyaline Casts Urine Yeast (Budding) Urine Opiates Screen Positive H Urine Methadone Screen Positive H Ur Barbiturates Screen Negative Ur Phencyclidine Scrn Negative Ur Amphetamines Screen Negative U Benzodiazepines Scrn Negative U Oth Cocaine Metabols Negative U Cannabinoids Screen Negative Alcohol, Quantitative Assessment & Plan - Assessment and Plan (Free Text) Plan: Enterocolitis Abd/Pelvis CT 04/16/18: * No acute abdominal or pelvic abnormality. * Stable 9 mm cystic lesion in the head of the pancreas. Correlation with CT scan or MRI of the abdomen without and with intravenous contrast with panc reatic protocol is recommended for further evaluation. * Postsurgical changes in the ascending colon and fluid-filled dilated ascending colon and distal small bowel loops which may represent nonspecific enterocolitis. No evidence of bowel obstruction. * Persistent circumferential mural thickening of the stomach which could be related to underdistention however nonspecific gastritis is also a cons ideration. If clinically indicated, correlation with EGD may be performed. Abd US 04/16/18: * 10 mm cyst in the head of the pancreas. * Mild hepatomegaly. * Diffused increased cortical echogenicity in the kidneys consistent with medical renal disease. CXR 04/16/18: No active pulmonary disease. COPD. WBC 15.5 * Bands 8 afebrile Blood Culture pending Urine Culture pending Stool Culture pending Ova and Parasite pending C. Diff toxin pending Fecal Leukocytes pending Medications: * Ciprofloxacin 400mg IVPB q12h (started on 04/16/18) * Metronidazole 500mg IVPB q8h (started on 04/16/18) * Zofran 4mg IVP q6h prn for nausea Heroin Abuse Psych consulted, Dr. Benitez - help appreciated Medications: * Clonidine 0.1mg PO q8h prn for withdrawal symptoms (hold for SBP <100mmHg) * Atarax 25mg PO HS Patient was given info for Methadone Clinic ([facility] [phone]) upon discharge on 03/14/2018. A call was placed to find out the patient's Methadone regiment and a message was left, but upon further interviewing of the patient, she reports never going to [facility]. She has been buying Methadone on the street in addition to heroin. She only buy heroin in [place] and never over in [facility]. She snorts approximately 10 bags per day and denies ever injecting. Stage 2 Lung Cancer Patient follows up with Dr. Alex De Souza at [facility] Currently undergoing chemo and radiation with Dr. De Souza. Recent GI Bleed/Duodenal Ulcer Patient had EGD with Dr. Carrillo on 03/10/18 with the following results: * Endoscopy: normal esophagus, 1cm hiatal hernia, gastritis, biopsied. one non-bleeding duodenal ulcer with a clean ulcer base. Follow-up pathology result. * Pathology: moderate chronic active gastritis. H. Pylori positive Patient was treated with quadruple therapy (Flagyl, Amoxicillin, Clarithromycin and Pantoprazole) for two weeks. Patient states that she took her medications for the entire two week course. She was given instructions to follow up with Dr. Carrillo in April for repeat EGD but forgot and has not made an appointment yet. It has been approximately 3 weeks since the completion of the patient's abx course, so she will be due for fecal H. Pylori Ag test during week of 04/24/2018. During her recent hospitalization, she received 2 units of pRBCs due to GI b leed. History of LFTs Likely secondary to drug use Hepatitis Panel Negative 03/09/18 continue to monitor Anemia of Chronic Disease Hgb 12.0 upon admission continue to monitor Hypothyroidism Thyroid US 03/10/18: Unremarkable thyroid sonogram. Thyroperoxidase ab positive 164 (03/10/18) Thyroglobulin antibody negative <1 (03/10/18) TSH pending Free T4 pending Medications: * Levothyroxine 125mcg PO daily Pancreatic Cyst stable from prior abdominal CT on 03/08/18 Mural Thickening of Stomach stable from prior abdominal CT on 03/08/18 Prophylactic Care DVT - SCDs b/l; no anticoagulation due to hx of recent GI bleed. GI - Protonix 40mg PO daily Diet - HHD, moderate carb consistent, 2g Na+ Case discussed with Dr. Bear Caba [id number] <Bear De Souza - Last Filed: 04/16/18 17:40> Results - Vital Signs Recent Vital Signs: Last Vital Signs Temp 98.7 F 04/16/18 16:16 Pulse 90 04/16/18 16:16 Resp 18 04/16/18 16:16 BP 104/66 04/16/18 16:16 Pulse Ox 99 04/16/18 16:16 - Labs Result Diagrams: 04/16/18 14:16 04/16/18 09:34 Labs: Laboratory Results - last 24 hr 04/16/18 04/16/18 04/16/18 09:34 09:34 09:34 WBC 16.0 H D RBC 4.55 Hgb 13.8 D Hct 41.9 MCV 92.0 D MCH 30.3 MCHC 32.9 L RDW 18.7 H Plt Count 231 MPV 7.9 Neut % (Auto) 94.5 H Lymph % (Auto) 2.5 L Carson % (Auto) 2.7 Eos % (Auto) 0.1 Baso % (Auto) 0.2 Neut # (Auto) 15.1 H Lymph # (Auto) 0.4 L Carson # (Auto) 0.4 Eos # (Auto) 0.0 Baso # (Auto) 0.0 Neutrophils % (Manual) 92 H Band Neutrophils % 5 H Lymphocytes % (Manual) 1 L Monocytes % (Manual) 2 Eosinophils % (Manual) Toxic Granulation Present Platelet Estimate Normal Large Platelets Polychromasia Slight Anisocytosis (manual) Slight Sodium 137 Potassium 4.2 Chloride 107 Carbon Dioxide 19 L Anion Gap 15 BUN 22 H Creatinine 1.6 H Est GFR ( Amer) 40 Est GFR (Non-Af Amer) 33 Random Glucose 106 H Calcium 9.0 Phosphorus 3.9 Magnesium 2.0 Total Bilirubin 0.5 AST 126 H ALT 119 H D Alkaline Phosphatase 177 H D Total Protein 8.0 Albumin 4.3 Globulin 3.7 Albumin/Globulin Ratio 1.2 Lipase 53 Urine Color Ivy Urine Clarity Hazy Urine pH 5.[address] 1[address]020 Urine Protein 2+ H Urine Glucose (UA) Normal Urine Ketones Trace Urine Blood 1+ H Urine Nitrate Negative Urine Bilirubin Negative Urine Urobilinogen Normal Ur Leukocyte Esterase Trace Urine WBC (Auto) 14 H Urine RBC (Auto) 1 Ur Squamous Epith Cells 12 H Calcium Oxalate Crystal Rare Urine Bacteria Rare Hyaline Casts 3-5 H Urine Yeast (Budding) Occ H Urine Opiates Screen Urine Methadone Screen Ur Barbiturates Screen Ur Phencyclidine Scrn Ur Amphetamines Screen U Benzodiazepines Scrn U Oth Cocaine Metabols U Cannabinoids Screen Alcohol, Quantitative < 10 04/16/18 04/16/18 09:34 14:16 WBC 15.5 H RBC 3.98 Hgb 12.0 Hct 36.5 MCV 91.9 MCH 30.1 MCHC 32.8 L RDW 18.1 H Plt Count 215 MPV 7.4 Neut % (Auto) 91.5 H Lymph % (Auto) 4.1 L Carson % (Auto) 3.7 Eos % (Auto) 0.2 Baso % (Auto) 0.5 Neut # (Auto) 14.2 H Lymph # (Auto) 0.6 L Carson # (Auto) 0.6 Eos # (Auto) 0.0 Baso # (Auto) 0.1 Neutrophils % (Manual) 82 H Band Neutrophils % 8 H Lymphocytes % (Manual) 5 L Monocytes % (Manual) 4 Eosinophils % (Manual) 1 Toxic Granulation Platelet Estimate Normal Large Platelets Present Polychromasia Slight Anisocytosis (manual) Moderate Sodium Potassium Chloride Carbon Dioxide Anion Gap BUN Creatinine Est GFR ( Amer) Est GFR (Non-Af Amer) Random Glucose Calcium Phosphorus Magnesium Total Bilirubin AST ALT Alkaline Phosphatase Total Protein Albumin Globulin Albumin/Globulin Ratio Lipase Urine Color Urine Clarity Urine pH Ur Specific Circle Urine Protein Urine Glucose (UA) Urine Ketones Urine Blood Urine Nitrate Urine Bilirubin Urine Urobilinogen Ur Leukocyte Esterase Urine WBC (Auto) Urine RBC (Auto) Ur Squamous Epith Cells Calcium Oxalate Crystal Urine Bacteria Hyaline Casts Urine Yeast (Budding) Urine Opiates Screen Positive H Urine Methadone Screen Positive H Ur Barbiturates Screen Negative Ur Phencyclidine Scrn Negative Ur Amphetamines Screen Negative U Benzodiazepines Scrn Negative U Oth Cocaine Metabols Negative U Cannabinoids Screen Negative Alcohol, Quantitative Attending/Attestation - Attestation I have personally seen and examined this patient.: Yes I have fully participated in the care of the patient.: Yes I have reviewed all pertinent clinical information: Yes Notes (Text): 04/16/18 17:40 Patient was seen shortly after coming to the medical floor. History, Physical, Assessment and Plan, and all orders were gone over with resident Dr. Scott Andino. Bear De Souza D.O.
[2018-04-16] MEDS ORDERED: Ciprofloxacin 400mg/200ml D5W 400 MG/200 ML BAG IVPB ONE (16:07)
[2018-04-16] MEDS: metroNIDAZOLE IV 500 mg/100 ml 500 MG/100 ML BAG IVPB SCH (22:09)
[2018-04-17] MEDS: Ciprofloxacin 400mg/200ml D5W 400 MG/200 ML BAG IVPB SCH ×2 (03:13→18:11)
[2018-04-17] MEDS: Levothyroxine 125 MCG TAB PO SCH (05:39)
[2018-04-17] MEDS: metroNIDAZOLE IV 500 mg/100 ml 500 MG/100 ML BAG IVPB SCH ×3 (06:07→22:16)
[2018-04-17 07:20] LABS: BASO # 0.1 K/uL (0.0-0.2); BASO % 0.5 % (0.0-2.0); EOS # 0.1 K/uL (0.0-0.7); EOS % 0.6 % (0.0-4.0); HEMOGLOBIN 10.9 g/dL (11.0-16.0); LYMPH # 1.1 K/uL (1.0-4.3); LYMPH % 7.5 % (20.0-40.0); MEAN CELL VOLUME 92.2 fL (81.0-99.0); MEAN CORPUSCULAR HEMOGLOBIN 30.4 pg (27.0-31.0); MEAN PLATELET VOLUME 7.8 fL (7.2-11.7); MONO # 0.7 K/uL (0.0-0.8); NEUT # 12.4 K/uL (1.8-7.0); NEUT % 86.4 % (50.0-75.0); PLATELET COUNT 210 K/uL (130-400); RED CELL DISTRIBUTION WIDTH 18.1 % (11.5-14.5); WHITE BLOOD COUNT 14.4 K/uL (4.8-10.8)
[2018-04-17 07:53] LABS: ALBUMIN 3.3 g/dL (3.5-5.0); CALCIUM 8.2 mg/dl (8.6-10.4)
--- NOTE | 2018-04-17 08:45 | CP.PCM.PN ---
<Brayan Gasca - Last Filed: 04/17/18 17:09> Subjective - Date & Time of Evaluation Date of Evaluation: 04/17/18 Time of Evaluation: 08:45 - Subjective Subjective: PGY-[address] Hoda De Souza Patient seen and examined at bedside. No acute events overnight. Patient states abdominal pain has improved. She did report some nausea that passed. Reports feeling ill from withdrawal. Otherwise patient denies chest pain, shortness of breath, vomiting, dizziness. Transfer to detox tomorrow if WBC continues to downtrend, no fevers, and cultures remain negative. Objective - Vital Signs/Intake and Output Vital Signs (last 24 hours): Temp Pulse Resp BP Pulse Ox 98.1 F 73 20 108/72 98 04/17/18 07:00 04/17/18 07:00 04/17/18 07:00 04/17/18 07:00 04/17/18 07:00 - Medications Medications: Current Medications Clonidine HCl (Catapres) 0.1 mg PO Q8H PRN PRN Reason: Symptoms Of Withdrawl Hydroxyzine HCl (Atarax) 25 mg PO HS [facility] Last Admin: 04/16/18 21:14 Dose: 25 mg Ciprofloxacin (Cipro 400mg/200ml Dsw) 400 mg in 200 mls @ 133 mls/hr IVPB Q12H [facility]; Protocol Stop: 04/27/18 04:00 Last Admin: 04/17/18 03:13 Dose: 133 mls/hr Metronidazole (Flagyl) 500 mg in 100 mls @ 100 mls/hr IVPB Q8H [facility]; Protocol Stop: 04/27/18 23:00 Last Admin: 04/17/18 06:07 Dose: 100 mls/hr Levothyroxine Sodium (Synthroid) 125 mcg PO DAILY@0630 [facility] Last Admin: 04/17/18 05:39 Dose: 125 mcg Methadone HCl (Methadone) 15 mg PO ONCE ONE Stop: 04/17/18 10:01 Methadone HCl (Methadone) 10 mg PO ONCE ONE Stop: 04/18/18 10:01 Methadone HCl (Methadone) 5 mg PO ONCE ONE Stop: 04/19/18 10:01 Ondansetron HCl (Zofran Inj) 4 mg IVP Q6 PRN PRN Reason: Nausea/Vomiting Pantoprazole Sodium (Protonix Ec Tab) 40 mg PO DAILY [facility] Phenytoin Sodium (Dilantin) 100 mg PO TID [facility] Last Admin: 04/16/18 18:16 Dose: 100 mg - Labs Labs: 04/17/18 07:05 04/17/18 07:05 - Head Exam Head Exam: ATRAUMATIC, NORMOCEPHALIC - Eye Exam Eye Exam: EOMI, Normal appearance - ENT Exam ENT Exam: Mucous Membranes Moist - Cardiovascular Exam Cardiovascular Exam: REGULAR RHYTHM, +S1, +S2 - GI/Abdominal Exam GI & Abdominal Exam: Soft, Normal Bowel Sounds. absent: Tenderness - Extremities Exam Extremities Exam: absent: Pedal Edema, Tenderness - Neurological Exam Neurological Exam: Alert, Awake, Oriented x3 - Psychiatric Exam Psychiatric exam: Normal Affect, Normal Mood - Skin Skin Exam: Dry, Intact Assessment and Plan - Assessment and Plan (Free Text) Assessment: Enterocolitis Transfer to detox tomorrow on oral antibiotics if WBC continues to downtrend, no fevers, and cultures remain negative. Abd/Pelvis CT 04/16/18: * No acute abdominal or pelvic abnormality. * Stable 9 mm cystic lesion in the head of the pancreas. Correlation with CT scan or MRI of the abdomen without and with intravenous contrast with pancreatic protocol is recommended for further evaluation. * Postsurgical changes in the ascending colon and fluid-filled dilated ascending colon and distal small bowel loops which may represent nonspecific enterocolitis. No evidence of bowel obstruction. * Persistent circumferential mural thickening of the stomach which could be related to underdistention however nonspecific gastritis is also a consideration. If clinically indicated, correlation with EGD may be performed. Abd US 04/16/18: * 10 mm cyst in the head of the pancreas. * Mild hepatomegaly. * Diffused increased cortical echogenicity in the kidneys consistent with medical renal disease. CXR 04/16/18: No active pulmonary disease. COPD. WBC 14.4 afebrile Blood Culture pending Urine Culture - multiple species present, most likely contaminated specimen Stool Culture pending Ova and Parasite pending C. Diff toxin pending Fecal Leukocytes pending Medications: * Ciprofloxacin 400mg IVPB q12h (started on 04/16/18) * Metronidazole 500mg IVPB q8h (started on 04/16/18) * Zofran 4mg IVP q6h prn for nausea Heroin Abuse Psych consulted, Dr. Benitez - help appreciated Medications: * Clonidine 0.1mg PO q8h prn for withdrawal symptoms (hold for SBP <100mmHg) * Atarax 25mg PO HS Patient was given info for Methadone Clinic ([facility] [phone]) upon discharge on 03/14/2018. A call was placed to find out the patient's Methadone regiment and a message was left, but upon further interviewing of the patient, she reports never going to [facility]. She has been buying Methadone on the street in addition to heroin. She only buy heroin in [place] and never over in [facility]. She snorts approximately 10 bags per day and denies ever injecting. Stage 2 Lung Cancer Patient [place] [facility] [place] chemo and radiation with Dr. De Souza Recent GI Bleed/Duodenal Ulcer Patient had EGD with Dr. Carrillo on 03/10/18 with the following results: * Endoscopy: normal esophagus, 1cm hiatal hernia, gastritis, biopsied. one non- bleeding duodenal ulcer with a clean ulcer base. Follow-up pathology result. * Pathology: moderate chronic active gastritis. H. Pylori positive Patient was treated with quadruple therapy (Flagyl, Amoxicillin, Clarithromycin and Pantoprazole) for two weeks. Patient states that she took her medications for the entire two week course. She was given instructions to follow up with Dr. Carrillo in April for repeat EGD but forgot and has not made an appointment yet. It has been approximately 3 weeks since the completion of the patient's abx course, so she will be due for fecal H. Pylori Ag test during week of 04/24/2018. During her recent hospitalization, she received 2 units of pRBCs due to GI bleed History of LFTs Likely secondary to drug use Hepatitis Panel Negative 03/09/18 continue to monitor Anemia of Chronic Disease Hgb 12.0 upon admission continue to monitor Hypothyroidism Thyroid US 03/10/18: Unremarkable thyroid sonogram. Thyroperoxidase ab positive 164 (03/10/18) Thyroglobulin antibody negative <1 (03/10/18) TSH pending Free T4 pending Medications: * Levothyroxine 125mcg PO daily Pancreatic Cyst stable from prior abdominal CT on 03/08/18 Mural Thickening of Stomach stable from prior abdominal CT on 03/08/18 Prophylactic Care DVT - SCDs b/l; no anticoagulation due to hx of recent GI bleed. GI - Protonix 40mg PO daily Diet - HHD, moderate carb consistent, 2g Na+ Case discussed with Dr. Bear Gasca, PGY-1 <Bear De Souza J - Last Filed: 04/18/18 23:21> Objective - Vital Signs/Intake and Output Vital Signs (last 24 hours): Temp Pulse Resp BP Pulse Ox 99.3 F 84 18 96/70 L 98 04/18/18 15:00 04/18/18 15:00 04/18/18 15:00 04/18/18 15:00 04/18/18 15:00 - Medications Medications: Current Medications Clonidine HCl (Catapres) 0.1 mg PO Q8H PRN PRN Reason: Symptoms Of Withdrawl Heparin Sodium (Porcine) (Heparin) 5,000 units SC Q12 [facility] Last Admin: 04/18/18 22:53 Dose: 5,000 units Hydroxyzine HCl (Atarax) 25 mg PO HS [facility] Last Admin: 04/18/18 22:53 Dose: 25 mg Ciprofloxacin (Cipro 400mg/200ml Dsw) 400 mg in 200 mls @ 133 mls/hr IVPB Q12H [facility]; Protocol Stop: 04/27/18 04:00 Last Admin: 04/18/18 19:04 Dose: 133 mls/hr Metronidazole (Flagyl) 500 mg in 100 mls @ 100 mls/hr IVPB Q8H [facility]; Protocol Stop: 04/27/18 23:00 Last Admin: 04/18/18 22:52 Dose: 100 mls/hr Sodium Chloride (Sodium Chloride 0.9%) 1,000 mls @ 90 mls/hr IV .Q11H7M [facility] Last Admin: 04/18/18 17:00 Dose: 90 mls/hr Levothyroxine Sodium (Synthroid) 125 mcg PO DAILY@0630 [facility] Last Admin: 04/18/18 06:04 Dose: 125 mcg Methadone HCl (Methadone) 5 mg PO ONCE ONE Stop: 04/19/18 10:01 Ondansetron HCl (Zofran Inj) 4 mg IVP Q6 PRN PRN Reason: Nausea/Vomiting Pantoprazole Sodium (Protonix Ec Tab) 40 mg PO DAILY [facility] Last Admin: 04/18/18 09:50 Dose: 40 mg Phenytoin Sodium (Dilantin) 100 mg PO TID [facility] Last Admin: 04/18/18 18:50 Dose: 100 mg - Labs Labs: 04/18/18 06:46 04/18/18 06:46 Attending/Attestation - Attestation I have personally seen and examined this patient.: Yes I have fully participated in the care of the patient.: Yes I have reviewed all pertinent clinical information, including history, physical exam and plan: Yes Notes (Text): 04/18/18 23:20 This is a late entry. Care of this patient was gone over with resident Dr. Gasca. Bear De Souza D.O.
[2018-04-17 09:02] LABS: BANDS 1 % (0-2); LYMPHOCYTE 5 % (20-40); MONOCYTE 3 % (0-10); NEUTROPHIL 91 % (50-75); PLATELET ESTIMATE NORMAL (NORMAL); TOTAL CELLS COUNTED 100
[2018-04-17 09:03] LABS: ANISOCYTOSIS SLIGHT
[2018-04-17] MEDS: Pantoprazole 40 mg EC Tab PO SCH (10:58)
[2018-04-17] MEDS: Sodium Chloride 0.9% 1,000 ML IV SCH (18:10)
[2018-04-18] MEDS: Ciprofloxacin 400mg/200ml D5W 400 MG/200 ML BAG IVPB SCH ×2 (03:11→19:04)
[2018-04-18] MEDS: Sodium Chloride 0.9% 1,000 ML IV SCH ×2 (04:40→17:00)
[2018-04-18] MEDS: Levothyroxine 125 MCG TAB PO SCH (06:04)
[2018-04-18] MEDS: metroNIDAZOLE IV 500 mg/100 ml 500 MG/100 ML BAG IVPB SCH ×3 (06:04→22:52)
[2018-04-18 06:58] LABS: BASO # 0.1 K/uL (0.0-0.2); BASO % 0.5 % (0.0-2.0); EOS # 0.2 K/uL (0.0-0.7); EOS % 1.7 % (0.0-4.0); HEMOGLOBIN 10.6 g/dL (11.0-16.0); LYMPH # 1.1 K/uL (1.0-4.3); LYMPH % 10.5 % (20.0-40.0); MEAN CELL VOLUME 91.7 fL (81.0-99.0); MEAN CORPUSCULAR HEMOGLOBIN 30.4 pg (27.0-31.0); MEAN CORPUSCULAR HGB CONC 33.1 g/dL (33.0-37.0); MEAN PLATELET VOLUME 7.9 fL (7.2-11.7); MONO # 0.6 K/uL (0.0-0.8); MONO % 6.2 % (0.0-10.0); NEUT # 8.1 K/uL (1.8-7.0); NEUT % 81.1 % (50.0-75.0); RBC 3.5 Mil/uL (3.80-5.20); RED CELL DISTRIBUTION WIDTH 18.5 % (11.5-14.5)
[2018-04-18 07:43] LABS: CALCIUM 8.4 mg/dl (8.6-10.4)
[2018-04-18] MEDS: Pantoprazole 40 mg EC Tab PO SCH (09:50)
--- NOTE | 2018-04-18 12:20 | CP.PCM.PN ---
<Sharon Paulino P - Last Filed: 04/18/18 22:04> Subjective - Date & Time of Evaluation Date of Evaluation: 04/18/18 Time of Evaluation: 09:00 - Subjective Subjective: PGY-[address] Scott De Souza. Patient seen and examined at bedside. complains of headache, tooth sensitivity and neck pain radiating to the back. Denies fever, chills, nausea, vomiting, chest pain, shortness of breath, goosebumps, abdominal pain and diarrhea. Objective - Vital Signs/Intake and Output Vital Signs (last 24 hours): Temp Pulse Resp BP Pulse Ox 97.8 F 77 20 104/72 96 04/18/18 07:00 04/18/18 07:00 04/18/18 07:00 04/18/18 07:00 04/18/18 07:00 Intake and Output: 04/18/18 04/18/18 06:59 18:59 Intake Total 610 Balance 610 - Medications Medications: Current Medications Clonidine HCl (Catapres) 0.1 mg PO Q8H PRN PRN Reason: Symptoms Of Withdrawl Heparin Sodium (Porcine) (Heparin) 5,000 units SC Q12 [facility] Last Admin: 04/18/18 09:50 Dose: 5,000 units Hydroxyzine HCl (Atarax) 25 mg PO HS [facility] Last Admin: 04/17/18 22:20 Dose: 25 mg Ciprofloxacin (Cipro 400mg/200ml Dsw) 400 mg in 200 mls @ 133 mls/hr IVPB Q12H [facility]; Protocol Stop: 04/27/18 04:00 Last Admin: 04/18/18 03:11 Dose: 133 mls/hr Metronidazole (Flagyl) 500 mg in 100 mls @ 100 mls/hr IVPB Q8H [facility]; Protocol Stop: 04/27/18 23:00 Last Admin: 04/18/18 06:04 Dose: 100 mls/hr Sodium Chloride (Sodium Chloride 0.9%) 1,000 mls @ 90 mls/hr IV .Q11H7M [facility] Last Admin: 04/18/18 04:40 Dose: Not Given Levothyroxine Sodium (Synthroid) 125 mcg PO DAILY@0630 [facility] Last Admin: 04/18/18 06:04 Dose: 125 mcg Methadone HCl (Methadone) 5 mg PO ONCE ONE Stop: 04/19/18 10:01 Ondansetron HCl (Zofran Inj) 4 mg IVP Q6 PRN PRN Reason: Nausea/Vomiting Pantoprazole Sodium (Protonix Ec Tab) 40 mg PO DAILY [facility] Last Admin: 04/18/18 09:50 Dose: 40 mg Phenytoin Sodium (Dilantin) 100 mg PO TID [facility] Last Admin: 04/18/18 09:49 Dose: 100 mg - Labs Labs: 04/18/18 06:46 04/18/18 06:46 - Constitutional Appears: No Acute Distress - Head Exam Head Exam: ATRAUMATIC, NORMOCEPHALIC - Eye Exam Eye Exam: EOMI, PERRL - ENT Exam ENT Exam: Mucous Membranes Moist - Neck Exam Neck Exam: Full ROM - Respiratory Exam Respiratory Exam: Clear to Ausculation Bilateral. absent: Rales, Rhonchi, Wheezes, Respiratory Distress - Cardiovascular Exam Cardiovascular Exam: REGULAR RHYTHM, +S1, +S2 - GI/Abdominal Exam GI & Abdominal Exam: Soft. absent: Guarding, Tenderness, Rebound - Extremities Exam Extremities Exam: Full ROM. absent: Joint Swelling, Tenderness - Neurological Exam Neurological Exam: Alert, Awake, Oriented x3 - Psychiatric Exam Psychiatric exam: Normal Affect, Normal Mood - Skin Skin Exam: Normal Color, Warm Assessment and Plan - Assessment and Plan (Free Text) Plan: Enterocolitis Abd/Pelvis CT 04/16/18: * No acute abdominal or pelvic abnormality. * Stable 9 mm cystic lesion in the head of the pancreas. Correlation with CT scan or MRI of the abdomen without and with intravenous contrast with pancreatic protocol is recommended for further evaluation. * Postsurgical changes in the ascending colon and fluid-filled dilated ascending colon and distal small bowel loops which may represent nonspecific enterocolitis. No evidence of bowel obstruction. * Persistent circumferential mural thickening of the stomach which could be related to underdistention however nonspecific gastritis is also a consideration. If clinically indicated, correlation with EGD may be performed. Abd US 04/16/18: * 10 mm cyst in the head of the pancreas. * Mild hepatomegaly. * Diffused increased cortical echogenicity in the kidneys consistent with medical renal disease. CXR 04/16/18: No active pulmonary disease. COPD. WBC downtrending, 10.0 from 14.4 afebrile Blood Culture neg x48H Urine Culture - multiple species present, most likely contaminated specimen Stool Culture pending Ova and Parasite pending C. Diff toxin pending Fecal Leukocytes pending Medications: * Ciprofloxacin 400mg IVPB q12h (started on 04/16/18) * Metronidazole 500mg IVPB q8h (started on 04/16/18) * Zofran 4mg IVP q6h prn for nausea Heroin Abuse Psych consulted, Dr. Benitez - help appreciated Medications: * Clonidine 0.1mg PO q8h prn for withdrawal symptoms (hold for SBP <100mmHg) * Atarax 25mg PO HS * Methadone 10mg PO, Day 3 of taper Patient was given info for Methadone Clinic ([employer] [phone]) upon discharge on 03/14/2018. A call was placed to find out the patient's Methadone regiment and a message was left, but upon further interviewing of the patient, she reports never going to [employer]. She has been buying Methadone on the street in addition to heroin. She only buy heroin in [place] and never over in [facility]. She snorts approximately 10 bags per day and denies ever injecting. Stage 2 Lung Cancer Patient follows up with Dr. Alex De Souza at [facility] [place] Currently undergoing chemo and radiation with Dr. De Souza Recent GI Bleed/Duodenal Ulcer Patient had EGD with Dr. Carrillo on 03/10/18 with the following results: * Endoscopy: normal esophagus, 1cm hiatal hernia, gastritis, biopsied. one non- bleeding duodenal ulcer with a clean ulcer base. Follow-up pathology result. * Pathology: moderate chronic active gastritis. H. Pylori positive Patient was treated with quadruple therapy (Flagyl, Amoxicillin, Clarithromycin and Pantoprazole) for two weeks. Patient states that she took her medications for the entire two week course. She was given instructions to follow up with Dr. Carrillo in April for repeat EGD but forgot and has not made an appointment yet. It has been approximately 3 weeks since the completion of the patient's abx course, so she will be due for fecal H. Pylori Ag test during week of 04/24/2018. During her recent hospitalization, she received 2 units of pRBCs due to GI bleed History of LFTs Likely secondary to drug use Hepatitis Panel Negative 03/09/18 continue to monitor Anemia of Chronic Disease Hgb 12.0 upon admission continue to monitor Hypothyroidism Thyroid US 03/10/18: Unremarkable thyroid sonogram. Thyroperoxidase ab positive 164 (03/10/18) Thyroglobulin antibody negative <1 (03/10/18) TSH high, 189 Free T4 low, 0.48 Medications: * Levothyroxine 125mcg PO daily Pancreatic Cyst stable from prior abdominal CT on 03/08/18 Mural Thickening of Stomach stable from prior abdominal CT on 03/08/18 Prophylactic Care DVT - SCDs b/l; no anticoagulation due to hx of recent GI bleed. GI - Protonix 40mg PO daily Diet - HHD, moderate carb consistent, 2g Na+ Medicine team, please provide patient with phone and help her call [employer] [phone] to set a time and date for an appointment. Case discussed with Dr. Bear De Souza. Sharon Paulino, PGY-1. <Bear De Souza J - Last Filed: 04/18/18 23:20> Objective - Vital Signs/Intake and Output Vital Signs (last 24 hours): Temp Pulse Resp BP Pulse Ox 99.3 F 84 18 96/70 L 98 04/18/18 15:00 04/18/18 15:00 04/18/18 15:00 04/18/18 15:00 04/18/18 15:00 - Medications Medications: Current Medications Clonidine HCl (Catapres) 0.1 mg PO Q8H PRN PRN Reason: Symptoms Of Withdrawl Heparin Sodium (Porcine) (Heparin) 5,000 units SC Q12 [facility] Last Admin: 04/18/18 22:53 Dose: 5,000 units Hydroxyzine HCl (Atarax) 25 mg PO HS [facility] Last Admin: 04/18/18 22:53 Dose: 25 mg Ciprofloxacin (Cipro 400mg/200ml Dsw) 400 mg in 200 mls @ 133 mls/hr IVPB Q12H [facility]; Protocol Stop: 04/27/18 04:00 Last Admin: 04/18/18 19:04 Dose: 133 mls/hr Metronidazole (Flagyl) 500 mg in 100 mls @ 100 mls/hr IVPB Q8H [facility]; Protocol Stop: 04/27/18 23:00 Last Admin: 04/18/18 22:52 Dose: 100 mls/hr Sodium Chloride (Sodium Chloride 0.9%) 1,000 mls @ 90 mls/hr IV .Q11H7M [facility] Last Admin: 04/18/18 17:00 Dose: 90 mls/hr Levothyroxine Sodium (Synthroid) 125 mcg PO DAILY@0630 [facility] Last Admin: 04/18/18 06:04 Dose: 125 mcg Methadone HCl (Methadone) 5 mg PO ONCE ONE Stop: 04/19/18 10:01 Ondansetron HCl (Zofran Inj) 4 mg IVP Q6 PRN PRN Reason: Nausea/Vomiting Pantoprazole Sodium (Protonix Ec Tab) 40 mg PO DAILY [facility] Last Admin: 04/18/18 09:50 Dose: 40 mg Phenytoin Sodium (Dilantin) 100 mg PO TID [facility] Last Admin: 04/18/18 18:50 Dose: 100 mg - Labs Labs: 04/18/18 06:46 04/18/18 06:46 Attending/Attestation - Attestation I have personally seen and examined this patient.: Yes I have fully participated in the care of the patient.: Yes I have reviewed all pertinent clinical information, including history, physical exam and plan: Yes Notes (Text): 04/18/18 23:20 Care of this patient was gone over with resident Dr. Daren Paulino. Bear De Souza D.O.
--- NOTE | 2018-04-18 22:58 | CP.PCM.PCO ---
Physician Communication Note - Physician Communication Note Physician Communication Note: Please see above
[2018-04-19 01:37] VITALS: RESP 20
[2018-04-19] MEDS: Ciprofloxacin 400mg/200ml D5W 400 MG/200 ML BAG IVPB SCH (04:45)
[2018-04-19 06:37] LABS: BASO % 0.4 % (0.0-2.0); EOS # 0.2 K/uL (0.0-0.7); EOS % 2.2 % (0.0-4.0); LYMPH # 0.8 K/uL (1.0-4.3); MEAN CELL VOLUME 91.1 fL (81.0-99.0); MEAN CORPUSCULAR HEMOGLOBIN 29.5 pg (27.0-31.0); MEAN CORPUSCULAR HGB CONC 32.3 g/dL (33.0-37.0); MEAN PLATELET VOLUME 7.8 fL (7.2-11.7); MONO # 0.7 K/uL (0.0-0.8); NEUT # 7.2 K/uL (1.8-7.0); NEUT % 80.4 % (50.0-75.0); PLATELET COUNT 231 K/uL (130-400); RBC 3.72 Mil/uL (3.80-5.20); RED CELL DISTRIBUTION WIDTH 18.6 % (11.5-14.5)
[2018-04-19] MEDS: metroNIDAZOLE IV 500 mg/100 ml 500 MG/100 ML BAG IVPB SCH (06:38)
[2018-04-19] MEDS: Levothyroxine 125 MCG TAB PO SCH (07:34)
[2018-04-19 08:13] VITALS: TEMP 98.1
[2018-04-19 08:50] LABS: EOSINOPHIL 2 % (0-4); LYMPHOCYTE 6 % (20-40); MONOCYTE 6 % (0-10); NEUTROPHIL 86 % (50-75); PLATELET ESTIMATE NORMAL (NORMAL); TOTAL CELLS COUNTED 100
[2018-04-19] MEDS: Pantoprazole 40 mg EC Tab PO SCH (10:21)
--- NOTE | 2018-04-19 13:06 | CP.PCM.PN ---
Subjective - Date & Time of Evaluation Date of Evaluation: 04/19/18 Time of Evaluation: 13:09 - Subjective Subjective: Patient seen and examined. No acute events overnight. Patient complaining of mild abdominal pain, but denies nausea, vomiting or diarrhea. She is having BMs. Denies chest pain, shortness of breath, dizziness, headache. Per our conversation today, it is unclear whether or not she did take a 2 week course of her antibiotics - she will need to have follow up H Pylori testing so evaluate whether H pylori has cleared. We will plan to transfer to [address] [place] [address] once there is a bed available. Spoke with nurse today and was informed there is no bed, but potentially for tomorrow 04/20. Objective - Vital Signs/Intake and Output Vital Signs (last 24 hours): Temp Pulse Resp BP Pulse Ox 98.1 F 73 20 117/81 95 04/19/18 08:11 04/19/18 08:11 04/19/18 08:11 04/19/18 08:11 04/19/18 08:11 Intake and Output: 04/19/18 04/19/18 06:59 18:59 Intake Total 1330 Balance 1330 - Medications Medications: Current Medications Clonidine HCl (Catapres) 0.1 mg PO Q8H PRN PRN Reason: Symptoms Of Withdrawl Docusate Sodium (Colace) 100 mg PO BID [facility] Heparin Sodium (Porcine) (Heparin) 5,000 units SC Q12 [facility] Last Admin: 04/19/18 10:21 Dose: 5,000 units Hydroxyzine HCl (Atarax) 25 mg PO HS [facility] Last Admin: 04/18/18 22:53 Dose: 25 mg Ciprofloxacin (Cipro 400mg/200ml Dsw) 400 mg in 200 mls @ 133 mls/hr IVPB Q12H [facility]; Protocol Stop: 04/27/18 04:00 Last Admin: 04/19/18 04:45 Dose: 133 mls/hr Metronidazole (Flagyl) 500 mg in 100 mls @ 100 mls/hr IVPB Q8H [facility]; Protocol Stop: 04/27/18 23:00 Last Admin: 04/19/18 06:38 Dose: 100 mls/hr Levothyroxine Sodium (Synthroid) 125 mcg PO DAILY@0630 [facility] Last Admin: 04/19/18 07:34 Dose: 125 mcg Ondansetron HCl (Zofran Inj) 4 mg IVP Q6 PRN PRN Reason: Nausea/Vomiting Last Admin: 04/19/18 04:48 Dose: 4 mg Pantoprazole Sodium (Protonix Ec Tab) 40 mg PO DAILY [facility] Last Admin: 04/19/18 10:21 Dose: 40 mg Phenytoin Sodium (Dilantin) 100 mg PO TID [facility] Last Admin: 04/19/18 10:21 Dose: 100 mg - Labs Labs: 04/19/18 06:16 04/19/18 06:16 - Constitutional Appears: Non-toxic, No Acute Distress - Head Exam Head Exam: ATRAUMATIC, NORMAL INSPECTION - Eye Exam Eye Exam: EOMI, Normal appearance - ENT Exam ENT Exam: Mucous Membranes Moist - Respiratory Exam Respiratory Exam: Clear to Ausculation Bilateral. absent: Rhonchi, Wheezes - Cardiovascular Exam Cardiovascular Exam: REGULAR RHYTHM, +S1, +S2 - GI/Abdominal Exam GI & Abdominal Exam: Soft, Tenderness (Very mild RLQ tenderness), Normal Bowel Sounds - Extremities Exam Extremities Exam: absent: Pedal Edema, Tenderness - Neurological Exam Neurological Exam: Alert, Awake, Oriented x3 - Psychiatric Exam Psychiatric exam: Normal Affect, Normal Mood - Skin Skin Exam: Dry, Intact, Normal Color, Warm Assessment and Plan - Assessment and Plan (Free Text) Assessment: Plan: Enterocolitis Abd/Pelvis CT 04/16/18: * No acute abdominal or pelvic abnormality. * Stable 9 mm cystic lesion in the head of the pancreas. Correlation with CT scan or MRI of the abdomen without and with intravenous contrast with pancreatic protocol is recommended for further evaluation. * Postsurgical changes in the ascending colon and fluid-filled dilated ascending colon and distal small bowel loops which may represent nonspecific enterocolitis. No evidence of bowel obstruction. * Persistent circumferential mural thickening of the stomach which could be rel ated to underdistention however nonspecific gastritis is also a consideration. If clinically indicated, correlation with EGD may be performed. Abd US 04/16/18: * 10 mm cyst in the head of the pancreas. * Mild hepatomegaly. * Diffused increased cortical echogenicity in the kidneys consistent with me dical renal disease. CXR 04/16/18: No active pulmonary disease. COPD. Leukocytosis has resolved afebrile Blood Culture neg x48H Urine Culture - multiple species present, most likely contaminated specimen Stool Culture pending Ova and Parasite pending C. Diff toxin pending Fecal Leukocytes pending Medications: * Ciprofloxacin 400mg IVPB q12h (started on 04/16/18) * Metronidazole 500mg IVPB q8h (started on 04/16/18) * Zofran 4mg IVP q6h prn for nausea Heroin Abuse We will plan to transfer to detox once there is a bed available. Spoke with nurse today and was informed there is no bed, but potentially for tomorrow 04/20 Psych consulted, Dr. Benitez - help appreciated Medications: * Clonidine 0.1mg PO q8h prn for withdrawal symptoms (hold for SBP <100mmHg) * Atarax 25mg PO HS * Methadone 10mg PO, Day 3 of taper Patient was given info for Methadone Clinic ([facility] [phone]) upon discharge on 03/14/2018. A call was placed to find out the patient's Methadone regiment and a message was left, but upon further interviewing of the patient, she reports never going to [facility]. She has been buying Methadone on the street in addition to heroin. She only buy heroin in [place] and never over in [facility]. She snorts approximately 10 bags per day and denies ever injecting. Stage 2 Lung Cancer Patient follows up with Dr. Alex De Souza at [facility] Currently undergoing chemo and radiation with Dr. De Souza Recent GI Bleed/Duodenal Ulcer Patient had EGD with Dr. Carrillo on 03/10/18 with the following results: * Endoscopy: normal esophagus, 1cm hiatal hernia, gastritis, biopsied. one non- bleeding duodenal ulcer with a clean ulcer base. Follow-up pathology result. * Pathology: moderate chronic active gastritis. H. Pylori positive Patient was treated with quadruple therapy (Flagyl, Amoxicillin, Clarithromycin and Pantoprazole) for two weeks. Per our conversation today, it is unclear whether or not she did take a 2 week course of her antibiotics. She was given instructions to follow up with Dr. Carrillo in April for repeat EGD but forgot and has not made an appointment yet. It has been approximately 3 weeks since the completion of the patient's abx course, so she will be due for fecal H. Pylori Ag test during week of 04/24/2018. During her recent hospitalization, she received 2 units of pRBCs due to GI bleed History of LFTs Likely secondary to drug use Hepatitis Panel Negative 03/09/18 continue to monitor Anemia of Chronic Disease Hgb 12.0 upon admission continue to monitor Hypothyroidism Thyroid US 03/10/18: Unremarkable thyroid sonogram. Thyroperoxidase ab positive 164 (03/10/18) Thyroglobulin antibody negative <1 (03/10/18) TSH high, 189 Free T4 low, 0.48 Medications: * Levothyroxine 125mcg PO daily Pancreatic Cyst stable from prior abdominal CT on 03/08/18 Mural Thickening of Stomach stable from prior abdominal CT on 03/08/18 Prophylactic Care DVT - SCDs b/l; no anticoagulation due to hx of recent GI bleed. GI - Protonix 40mg PO daily Diet - HHD, moderate carb consistent, 2g Na+ Prior to discharge, we will ensure that patient has an appointment with [facility] [phone] to set a time and date for an appointment. Case discussed with Dr. Eben Gasca, PGY-1.
[2018-04-19] MEDS ORDERED: Aluminum Hydroxide/Magnesium Hydroxide Susp (30 mL) PO ONE (15:31)
[2018-04-19 17:20] VITALS: BP 133/85; PULSE 86; O2SAT 100
--- NOTE | 2018-04-19 18:26 | CP.PCM.DIS ---
Provider - Provider Date of Admission: 04/16/18 14:39 Attending physician: Bear De Souza MD Consults: 04/18/18 22:23 Social Work Referral Routine Comment: Pls help pt set up [facility] apt [phone] Physician Instructions: Reason For Exam: Out patient methadone clinic 04/16/18 16:13 Psychiatry Consult Routine Comment: Consulting Provider: Gabriel Benitez Consulting Physician: Gabriel Benitez Reason for Consult: heroin abuse Time Spent in preparation of Discharge (in minutes): 45 Diagnosis - Discharge Diagnosis (1) Enterocolitis Status: Acute (2) Heroin dependence Status: Chronic Hospital Course - Lab Results Lab Results: Micro Results 04/16/18 14:10 Blood Blood Culture - Preliminary NO GROWTH AFTER 3 DAYS 04/16/18 14:59 Blood Blood Culture - Preliminary NO GROWTH AFTER 3 DAYS 04/16/18 11:27 Urine,Clean Catch Urine Culture - Final 10-50,000 CFU/ML. MULTIPLE SPECIES. PROBABLE CONTAMINATION. Most Recent Lab Values WBC 9.0 K/uL (4.8-10.8) 04/19/18 06:16 RBC 3.72 Mil/uL (3.80-5.20) L 04/19/18 06:16 Hgb 11.0 g/dL (11.0-16.0) 04/19/18 06:16 Hct 33.9 % (34.0-47.0) L 04/19/18 06:16 MCV 91.1 fL (81.0-99.0) 04/19/18 06:16 MCH 29.5 pg (27.0-31.0) 04/19/18 06:16 MCHC 32.3 g/dL (33.0-37.0) L 04/19/18 06:16 RDW 18.6 % (11.5-14.5) H 04/19/18 06:16 Plt Count 231 K/uL (130-400) 04/19/18 06:16 MPV 7.8 fL (7.2-11.7) 04/19/18 06:16 Neut % (Auto) 80.4 % (50.0-75.0) H 04/19/18 06:16 Lymph % (Auto) 9.0 % (20.0-40.0) L 04/19/18 06:16 [place] % (Auto) 8.0 % (0.0-10.0) 04/19/18 06:16 Eos % (Auto) 2.2 % (0.0-4.0) 04/19/18 06:16 Baso % (Auto) 0.4 % (0.0-2.0) 04/19/18 06:16 Neut # (Auto) 7.2 K/uL (1.8-7.0) H 04/19/18 06:16 Lymph # (Auto) 0.8 K/uL (1.0-4.3) L 04/19/18 06:16 [place] # (Auto) 0.7 K/uL (0.0-0.8) 04/19/18 06:16 Eos # (Auto) 0.2 K/uL (0.0-0.7) 04/19/18 06:16 Baso # (Auto) 0.0 K/uL (0.0-0.2) 04/19/18 06:16 Neutrophils % (Manual) 86 % (50-75) H 04/19/18 06:16 Band Neutrophils % 1 % (0-2) 04/17/18 07:05 Lymphocytes % (Manual) 6 % (20-40) L 04/19/18 06:16 Monocytes % (Manual) 6 % (0-10) 04/19/18 06:16 Eosinophils % (Manual) 2 % (0-4) 04/19/18 06:16 Toxic Granulation Present 04/16/18 09:34 Platelet Estimate Normal (NORMAL) 04/19/18 06:16 Large Platelets Present 04/16/18 14:16 RBC Morphology Normal 04/19/18 06:16 Polychromasia Slight 04/16/18 14:16 Anisocytosis (manual) Slight 04/17/18 07:05 Sodium 135 mmol/L (132-148) 04/19/18 06:16 Potassium 3.7 mmol/L (3.6-5.2) 04/19/18 06:16 Chloride 109 mmol/L (98-107) H 04/19/18 06:16 Carbon Dioxide 19 mmol/L (22-30) L 04/19/18 06:16 Anion Gap 11 (10-20) 04/19/18 06:16 BUN 21 mg/dL (7-17) H 04/19/18 06:16 Creatinine 1.7 mg/dL (0.7-1.2) H 04/19/18 06:16 Est GFR ( Amer) 37 04/19/18 06:16 Est GFR (Non-Af Amer) 30 04/19/18 06:16 Random Glucose 109 mg/dL (65-105) H D 04/19/18 06:16 Calcium 8.0 mg/dl (8.6-10.4) L 04/19/18 06:16 Phosphorus 3.9 mg/dL (2.5-4.5) 04/16/18 09:34 Magnesium 2.0 mg/dL (1.6-2.3) 04/16/18 09:34 Total Bilirubin 0.2 mg/dL (0.2-1.3) 04/19/18 06:16 AST 31 U/L (14-36) 04/19/18 06:16 ALT 45 U/L (9-52) 04/19/18 06:16 Alkaline Phosphatase 115 U/L (38-126) 04/19/18 06:16 Total Protein 6.1 g/dL (6.3-8.3) L 04/19/18 06:16 Albumin 3.0 g/dL (3.5-5.0) L 04/19/18 06:16 Globulin 3.0 gm/dL (2.2-3.9) 04/19/18 06:16 Albumin/Globulin Ratio 1.0 (1.0-2.1) 04/19/18 06:16 Lipase 53 U/L (23-300) 04/16/18 09:34 Free T4 0.48 ng/dL (0.78-2.19) L 04/17/18 07:05 TSH 3rd Generation 189.00 mIU/L (0.46-4.68) H 04/17/18 07:05 Urine Color Ivy (YELLOW) 04/16/18 09:34 Urine Clarity Hazy (Clear) 04/16/18 09:34 Urine pH 5.0 (5.0-8.0) 04/16/18 09:34 Ur Specific [place] 1.020 (1.003-1.030) 04/16/18 09:34 Urine Protein 2+ mg/dL (NEGATIVE) H 04/16/18 09:34 Urine Glucose (UA) Normal mg/dL (Normal) 04/16/18 09:34 Urine Ketones Trace mg/dL (NEGATIVE) 04/16/18 09:34 Urine Blood 1+ (NEGATIVE) H 04/16/18 09:34 Urine Nitrate Negative (NEGATIVE) 04/16/18 09:34 Urine Bilirubin Negative (NEGATIVE) 04/16/18 09:34 Urine Urobilinogen Normal mg/dL (0.2-1.0) 04/16/18 09:34 Ur Leukocyte Esterase Trace [place]/uL (Negative) 04/16/18 09:34 Urine WBC (Auto) 14 /hpf (0-5) H 04/16/18 09:34 Urine RBC (Auto) 1 /hpf (0-3) 04/16/18 09:34 Ur Squamous Epith Cells 12 /hpf (0-5) H 04/16/18 09:34 Calcium Oxalate Crystal Rare /hpf (<OCC) 04/16/18 09:34 Urine Bacteria Rare (<OCC) 04/16/18 09:34 Hyaline Casts 3-5 /lpf (0-2) H 04/16/18 09:34 Urine Yeast (Budding) Occ /hpf (NEGATIVE) H 04/16/18 09:34 Urine Opiates Screen Positive (NEGATIVE) H 04/16/18 09:34 Urine Methadone Screen Positive (NEGATIVE) H 04/16/18 09:34 Ur Barbiturates Screen Negative (NEGATIVE) 04/16/18 09:34 Phenytoin < 3.0 ug/mL (10-20) L 04/17/18 07:05 Ur Phencyclidine Scrn Negative (NEGATIVE) 04/16/18 09:34 Ur Amphetamines Screen Negative (NEGATIVE) 04/16/18 09:34 U Benzodiazepines Scrn Negative (NEGATIVE) 04/16/18 09:34 U Oth Cocaine Metabols Negative (NEGATIVE) 04/16/18 09:34 U Cannabinoids Screen Negative (NEGATIVE) 04/16/18 09:34 Alcohol, Quantitative < 10 mg/dl (0-10) 04/16/18 09:34 - Hospital Course Hospital Course: Initial HPI Ms. Agnelo is a 63 year old female with a past medical history of Lung CA (stage 2, follows up with Dr. Alex De Souza), seizures and hypothyroidism presents to ED w/ 2 history of abdominal pain. Patient was recently admitted to the hospital in February 2018 and was diagnosed with H. Pylori. Patient states that she completed her antibiotic regiment (Flagyl, Amoxicillin, Clarithromycin and Pantoprazole). 2 days ago she started experiencing a similar abdominal pain that brought her to the hospital a month ago. She also reports that he symptoms are similar to heroin withdrawal. She has been using both methadone (buying on street, not a clinic) and heroin (approximately 10 bags per day) daily since she has left the hospital. She reports only snorting heroin and never injecting. Her abdominal pain is vague and diffuse. She has experienced intermittent nausea and vomited twice. Denies blood in vomit. She is has had multiple episodes of diarrhea but is unable to quantify. Stool is described as brown, denying blood or dark/tarry stools. She also has started coughing for the past two days. The cough produces yellow mucous phlegm. Hospital Course Patient was admitted for abdominal pain which was treated as enterocolitis and was treated witha course of IV cipro and flagyl as well as fluids. She had recently been diagnosed with H pylori gastritis on prior admission and it has been questionable whether patient finished her antibiotic course. Stool studies did not result by time of discharge. She will follow up with Dr. Carrillo for her H. Pylori. In addition, patient has a history of heroin abuse and had recently increased to 10 bags/day, and substituting with Methadone obtained on the street when she could not obtain heroin. Patient was placed on a methadone taper for detox while hospitalized. She has been referred to [facility] for methadone treatment and has an appointment to follow up there. Patient states she is intent on quitting heroin. Patient does also have a history of lung cancer for which she follows at [facility] for chemotherapy. Imaging Abd/Pelvis CT 04/16/18: * No acute abdominal or pelvic abnormality. * Stable 9 mm cystic lesion in the head of the pancreas. Correlation with CT scan or MRI of the abdomen without and with intravenous contrast with pancreatic protocol is recommended for further evaluation. * Postsurgical changes in the ascending colon and fluid-filled dilated ascending colon and distal small bowel loops which may represent nonspecific enterocolitis. No evidence of bowel obstruction. * Persistent circumferential mural thickening of the stomach which could be related to underdistention however nonspecific gastritis is also a consideration. If clinically indicated, correlation with EGD may be performed. Abd US 04/16/18: * 10 mm cyst in the head of the pancreas. * Mild hepatomegaly. * Diffused increased cortical echogenicity in the kidneys consistent with medical renal disease. CXR 04/16/18: No active pulmonary disease. COPD. Discharge Exam - Head Exam Head Exam: ATRAUMATIC, NORMAL INSPECTION - Eye Exam Eye Exam: EOMI, Normal appearance - ENT Exam ENT Exam: Mucous Membranes Moist - Neck Exam Neck exam: Full Rom - Respiratory Exam Respiratory Exam: Clear to PA & Lateral, UNREMARKABLE. absent: Rhonchi, Wheezes - Cardiovascular Exam Cardiovascular Exam: REGULAR RHYTHM, +S1, +S2 - GI/Abdominal Exam GI & Abdominal Exam: Normal Bowel Sounds, Unremarkable. absent: Soft, Tenderness - Extremities Exam Extremities exam: normal inspection - Neurological Exam Neurological exam: Alert, Oriented x3 - Psychiatric Exam Psychiatric exam: Normal Affect, Normal Mood - Skin Skin Exam: Dry, Intact Discharge Plan - Discharge Medications Prescriptions: Ciprofloxacin HCl [Cipro] 500 mg PO BID #18 tablet metroNIDAZOLE [Flagyl] 500 mg PO TID #27 tab Pantoprazole Sodium [Protonix] 40 mg PO BID #60 ect - Follow Up Plan Condition: STABLE Disposition: HOME/ ROUTINE Instructions: Ciprofloxacin (Systemic), Colitis, Metronidazole (Systemic), Pantoprazole Additional Instructions: Patient cleared for discharge per Dr. Treadwell Patient is to continue taking the following medications. Prescriptions for new medications have been provided. - Colace 100 mg one tab by mouth at 8am and 8pm as needed for constipation - Synthroid 125 mcg one tab by mouth daily at 8am - Remeron 30 mg one tab by mouth at bedtime - Protonix 40 mg one tab by mouth daily at 8am for 4 months (patient will need follow up for Rx past 30 days) - Dilantin 100 mg one tab by mouth three times per day at 8am, 2pm, and 8pm - Ultram 50 mg one tab by mouth twice daily at 8am and 8pm - Cipro 500 mg one tab by mouth twice daily at 8am and 8pm for 9 days - Flagyl 500 mg one tab by mouth three times per day at 8am, 2pm, and 8pm for 9 days Patient is to follow up with her appointment at [facility] at [address] [place] [address] at 7am tomorrow. Patient is to follow up with her primary doctor with in 5-7 days of discharge. She will require follow up H Pylori testing in one month to ensure that her infection has cleared. Patient also informed of need to follow up with Dr. Carrillo regarding management of H Pylori gastritis and has been provided his information for follow up. Please return to ER if symptoms recur or worsen.
--- NOTE | 2018-04-20 22:38 | PCM.PSYCH ---
Initial Psychiatric Evaluation - Initial Psychiatric Evaluation Type of Admission: Voluntary Legal Status: Capacity Past Psychiatric History - Past Psychiatric History Previous Treatment History: None Pertinent Medical Hx (Current Medical&Sleep Prob, Allergies): Allergies Allergy/AdvReac Type Severity Reaction Status Date / Time No Known Allergies Allergy Verified 04/16/18 08:53 Dilantin 03/08/18 Unknown Chemotherapy Med 03/08/18 Docusate Sodium [Colace] 100 mg PO BID #60 capsule 03/14/18 Levothyroxine [Synthroid] 125 mcg PO DAILY@0630 #30 tab 03/14/18 Mirtazapine [Remeron] 30 mg PO HS #30 tab 03/14/18 Pantoprazole [Protonix EC Tab] 40 mg PO DAILY #24 ect 03/14/18 Phenytoin, Extended [Dilantin] 100 mg PO TID #90 cer 03/14/18 traMADol [Ultram] 50 mg PO Q12 #30 tab 03/14/18 Ciprofloxacin HCl [Cipro] 500 mg PO BID #18 tablet 04/19/18 Pantoprazole Sodium [Protonix] 40 mg PO BID #60 ect 04/19/18 metroNIDAZOLE [Flagyl] 500 mg PO TID #27 tab 04/19/18 Review of Systems - Review of Systems All systems: reviewed and no additional remarkable complaints except Mental Status Examination - Personal Presentation Personal Presentation: Looks stated age - Affect Affect: Constricted - Motor Activity Motor Activity: Calm - Reliability in Providing Information Reliability in Providing Information: Fair - Speech Speech: Organized - Mood Mood: Anxious - Formal Thought Process Formal Thought Process: No Impairment - Obsessions/Compulsions Obsessions: No Compulsions: No - Cognitive Functions Orientation: Person, Place, Situation, Time Sensorium: Alert Attention/Concentration: Attentive Abstract Thinking: Josephine Estimate of Intelligence: Below average Judgement: Imparied, as evidence by: Poor judgement, Intact, as evidence by: Insight regarding need for hospitalization - Risk Risk: Withdrawal, Diminished functioning - Limitations Limitations: Living alone DSM 5 DX - DSM 5 DSM 5 Diagnosis: Opioid use disorder severe Opioid withdrawal Cocaine use disorder severe - Recommended/Plan of Treatment Treatment Recommendations and Plan of Treatment: Patient psychiatrically stable and cleared for discharge - Smoking Cessation Smoking Cessation Initiated: No
== END 2018-04-19 16:45 | disposition home or self-care (01) ==
LOC: C.ER 08:46 → C.9E 14:39 → C.6T 17:20
PROVIDERS: ADMIT Family Medicine; ATTEND Family Medicine
DX: K52.9 Noninfective gastroenteritis and colitis, unspecified (principal); F11.20 Opioid dependence, uncomplicated; K86.9 Disease of pancreas, unspecified; N28.9 Disorder of kidney and ureter, unspecified; Z82.49 Family history of ischemic heart disease and other diseases of the circulatory system; Z85.118 Personal history of other malignant neoplasm of bronchus and lung; F17.210 Nicotine dependence, cigarettes, uncomplicated; E03.9 Hypothyroidism, unspecified; I10 Essential (primary) hypertension
CPT/HCPCS: 36415; 71045; 74176; 76700; 80053; 80185; 80320; 80324; 80345; 80346; 80349; 80353; 80358; 80361; 81001; 83690; 83735; 83992; 84100; 84439; 84443; 85025; 87040; 87086; 96365; 96367; 99285; G0378; J0744; J1644; J2405; J7030